=== PATIENT | female | born 1935 | race Caucasian/White ===

== ENCOUNTER → 2016-11-12 | Outpatient (CLI) | payer OTHER ==
[2016-11-12 16:45] LABS: URINE APPEARANCE CLEAR (CLEAR); URINE BILIRUBIN NEG (NEG); URINE COLOR YELLOW; URINE NITRITE POS (NEG); URINE SPECIFIC GRAVITY 1.009 (1.000-1.030); UROBILINOGEN NEG (NEG)
[2016-11-12 16:48] LABS: MANUAL MICROSCOPIC REQUIRED? NO; REVIEW REQ? YES
== END | disposition home or self-care (01) ==
LOC: C.LABSPEC 13:30
PROVIDERS: ATTEND Internal Medicine
DX: N39.0 Urinary tract infection, site not specified (principal)

== ENCOUNTER → 2016-12-19 | Outpatient (CLI) | payer OTHER | END | disposition home or self-care (01) | LOC: C.LABWYN 06:00 | PROVIDERS: ATTEND Internal Medicine | DX: E03.9 Hypothyroidism, unspecified (principal) ==

== ENCOUNTER → 2017-01-10 | Outpatient (CLI) | payer OTHER ==
--- NOTE | 2017-01-10 14:07 | DIAGNOSTIC IMAGING REPORT ---
R FOREARM 2 VIEWS ROUTINE CLINICAL HISTORY: Right forearm pain. Trauma. COMPARISON: None. DISCUSSION: The bones are osteopenic. No acute fractures are visualized. IMPRESSION: No acute fractures identified. Electronically signed by: Toni Tim M.D. 01/10/2017 2:06 PM Dictated Date/Time: 01/10/2017 2:05 PM
--- NOTE | 2017-01-10 14:09 | DIAGNOSTIC IMAGING REPORT ---
R HAND MIN 3 VIEWS ROUTINE CLINICAL HISTORY: RIGHT HAND PAIN TRAUMA COMPARISON: None. DISCUSSION: The bones are osteopenic. No acute fractures are visualized. There are no erosive changes. There are minor degenerative changes. IMPRESSION: No acute fractures or dislocations identified. Electronically signed by: Toni Tim M.D. 01/10/2017 2:08 PM Dictated Date/Time: 01/10/2017 2:06 PM
[2017-01-10 15:04] LABS: BASO % 0.3 %; BASO ABS # 0.02 K/uL (0-0.2); COMPLETE YES; EOS % 2.6 %; HEMATOCRIT 39.2 % (37-47); IG% 0.3 %; LYMPH % 28.4 %; LYMPH ABS # 2.17 K/uL (1.2-3.4); MEAN CELL VOLUME 91.6 fL (80-100); MEAN CORPUSCULAR HEMOGLOBIN 30.4 pg (25-34); MEAN CORPUSCULAR HGB CONC 33.2 g/dl (32-36); MEAN PLATELET VOLUME 10.2 fL (7.4-10.4); MONO % 7.6 %; NEUT % 60.8 %; PLATELET COUNT 293 K/uL (130-400); RED BLOOD COUNT 4.28 M/uL (4.2-5.4); WHITE BLOOD COUNT 7.64 K/uL (4.8-10.8)
[2017-01-10 15:17] LABS: BLOOD UREA NITROGEN 17 mg/dl (7-18); BUN/CREATININE RATIO 17.9 (10-20); CALCIUM 10.3 mg/dl (8.5-10.1); CARBON DIOXIDE 26 mmol/L (21-32); CHLORIDE 109 mmol/L (98-107); CREATININE 0.95 mg/dl (0.60-1.20); GLUCOSE 103 mg/dl (70-99); POTASSIUM 3.9 mmol/L (3.5-5.1); SODIUM 143 mmol/L (136-145)
== END | disposition home or self-care (01) ==
LOC: C.RAD 13:23
PROVIDERS: ATTEND Internal Medicine
DX: M79.641 Pain in right hand (principal); R42 Dizziness and giddiness; R53.1 Weakness

== ENCOUNTER → 2017-01-14 | Outpatient (CLI) | payer OTHER ==
[2017-01-14 12:27] LABS: HEMATOCRIT 36.1 % (37-47); MEAN CELL VOLUME 90.9 fL (80-100); MEAN CORPUSCULAR HEMOGLOBIN 30.2 pg (25-34); MEAN CORPUSCULAR HGB CONC 33.2 g/dl (32-36); MEAN PLATELET VOLUME 10.1 fL (7.4-10.4); PLATELET COUNT 262 K/uL (130-400); RED BLOOD COUNT 3.97 M/uL (4.2-5.4); WHITE BLOOD COUNT 6.15 K/uL (4.8-10.8)
[2017-01-14 13:16] LABS: BLOOD UREA NITROGEN 15 mg/dl (7-18); BUN/CREATININE RATIO 21.6 (10-20); CALCIUM 9.4 mg/dl (8.5-10.1); CARBON DIOXIDE 27 mmol/L (21-32); CHLORIDE 109 mmol/L (98-107); GLUCOSE 79 mg/dl (70-99); SODIUM 141 mmol/L (136-145)
== END | disposition home or self-care (01) ==
LOC: C.LABWYN 17:17
PROVIDERS: ATTEND Internal Medicine
DX: R53.1 Weakness (principal); R42 Dizziness and giddiness

== ENCOUNTER → 2017-01-16 | Outpatient (CLI) | payer OTHER ==
--- NOTE | 2017-01-16 14:37 | DIAGNOSTIC IMAGING REPORT ---
CT SCAN OF THE BRAIN WITHOUT IV CONTRAST CLINICAL HISTORY: Fall with head injury. COMPARISON STUDY: No priors. TECHNIQUE: Unenhanced axial CT scan of the brain is performed from the vertex to the skull base. CT DOSE: 932.98 mGy.cm FINDINGS: Brain parenchyma: There are age-related involutional changes noting mild subcortical and periventricular microangiopathic change. There is no hemorrhage, mass effect, or evidence of acute territorial ischemia by CT criteria. Hsu-white matter is preserved. No extra-axial fluid collection is seen. Ventricles, sulci, cisterns: Prominent secondary to involutional change. Intracranial vasculature: There is atherosclerotic calcification of the cavernous carotid arteries. Calvarium: Skeletal structures are osteopenic. There is no depressed calvarial fracture. Soft tissues: There is minimal right frontal scalp contusion. Sinuses and mastoids: The visualized paranasal sinuses are clear. The mastoid air cells are well pneumatized. Orbits: The bony orbits are grossly intact. There are bilateral ocular lens implants. IMPRESSION: There is no hemorrhage, mass effect, or evidence of acute territorial ischemia by CT criteria. Electronically signed by: Holden Dao M.D. 01/16/2017 2:36 PM Dictated Date/Time: 01/16/2017 2:33 PM
--- NOTE | 2017-01-16 14:47 | DIAGNOSTIC IMAGING REPORT ---
CT SCAN OF THE CERVICAL SPINE CLINICAL HISTORY: Fall. COMPARISON STUDY: No priors. TECHNIQUE: CT scan of the cervical spine is performed from the skull base to the upper thoracic spine. Images are reviewed in the axial, sagittal, and coronal planes. IV contrast was not administered for this examination. A dose lowering technique was utilized adhering to the principles of ALARA. FINDINGS: Skeletal structures: The skeletal structures are osteopenic. There is no evidence of fracture or subluxation involving the cervical spine. Vertebral body height and alignment are maintained. The odontoid process and lateral masses are intact. The atlantoaxial articulation is preserved noting productive degenerative change. The spinous processes appear intact. Anterior osteophytes are seen in the mid to lower cervical region. There is bony fusion of the right posterior elements of C3 and C4. There is mild to moderate multilevel cervical spondylosis. Uncovertebral and facet arthropathy contribute sterile foraminal narrowing at several levels. Intervertebral discs: There is moderate disc space narrowing seen at C5-C6 and C6-C7. The remaining disc spaces appear maintained. Central canal: Posterior disc osteophyte complexes at C5-C6 and C6-C7 likely contribute to acquired compromise of the central canal. Soft tissues: The prevertebral and paraspinous soft tissues are within normal limits. Calvarium: The visualized calvarium at the skull base appears intact. Brain parenchyma: Partially visualized brain parenchyma the skull base is within normal limits. Sinuses and mastoids: The visualized paranasal sinuses are clear. The mastoid air cells are well pneumatized. Lung apices: Apical scarring is observed. Partially imaged upper lobe lung parenchyma is otherwise clear as visualized. IMPRESSION: 1. There is no evidence of fracture or subluxation involving the cervical spine. 2. Osteopenia and multilevel spondylosis as above. Electronically signed by: Holden Dao M.D. 01/16/2017 2:46 PM Dictated Date/Time: 01/16/2017 2:36 PM
== END | disposition home or self-care (01) ==
LOC: C.CTS 14:13
PROVIDERS: ATTEND Internal Medicine
DX: S09.90XA Unspecified injury of head, initial encounter (principal); W19.XXXA Unspecified fall, initial encounter; M47.812 Spondylosis without myelopathy or radiculopathy, cervical region; M85.88 Other specified disorders of bone density and structure, other site

== ENCOUNTER → 2017-01-18 | Outpatient (CLI) | payer OTHER ==
[2017-01-18 13:36] LABS: MANUAL MICROSCOPIC REQUIRED? YES; URINE APPEARANCE CLOUDY (CLEAR); URINE BILIRUBIN NEG (NEG); URINE COLOR YELLOW; URINE NITRITE NEG (NEG); URINE PH 6.5 (4.5-7.5); UROBILINOGEN NEG (NEG)
[2017-01-18 13:37] LABS: REVIEW REQ? NO
[2017-01-18 13:52] LABS: URINE BACTERIA 1+ (NEG); URINE RBC 0-4 /hpf (0-4); URINE WBC >30 /hpf (0-5)
== END | disposition home or self-care (01) ==
LOC: C.LABWYN 15:40
PROVIDERS: ATTEND Nurse Practitioner
DX: N39.0 Urinary tract infection, site not specified (principal)

== ENCOUNTER → 2017-06-10 | Outpatient (CLI) | payer OTHER ==
[2017-06-10 12:22] LABS: HEMATOCRIT 35.4 % (37-47); HEMOGLOBIN 11.8 g/dL (12.0-16.0); MEAN CELL VOLUME 91.5 fL (80-100); MEAN CORPUSCULAR HEMOGLOBIN 30.5 pg (25-34); MEAN CORPUSCULAR HGB CONC 33.3 g/dl (32-36); MEAN PLATELET VOLUME 10.1 fL (7.4-10.4); PLATELET COUNT 247 K/uL (130-400); RED CELL DISTRIBUTION WIDTH CV 12.9 % (11.5-14.5); RED CELL DISTRIBUTION WIDTH SD 43.1 fL (36.4-46.3); WHITE BLOOD COUNT 5.62 K/uL (4.8-10.8)
[2017-06-10 13:04] LABS: BLOOD UREA NITROGEN 13 mg/dl (7-18); CALCIUM 9.4 mg/dl (8.5-10.1); CARBON DIOXIDE 28 mmol/L (21-32); CHOLESTEROL 135 mg/dl (0-200); CREATININE 0.75 mg/dl (0.60-1.20); GLUCOSE 80 mg/dl (70-99); SODIUM 141 mmol/L (136-145)
[2017-06-10 13:07] LABS: LDL CHOLESTEROL CALCULATED 74 mg/dl
== END | disposition home or self-care (01) ==
LOC: C.LABWYN 12:14
PROVIDERS: ATTEND Nurse Practitioner Adult Health
DX: E78.5 Hyperlipidemia, unspecified (principal); I10 Essential (primary) hypertension

== ENCOUNTER 2017-06-23 03:51 | Emergency (ER) | payer OTHER ==
[~2017-06-23] VITALS: Ht 154.9 cm; Wt 70.1 kg
[2017-06-23 03:52] VITALS: TEMP 36.6; Ht 154.9 cm; Wt 70.1 kg
--- NOTE | 2017-06-23 04:37 | EMERGENCY ROOM VISIT NOTE ---
History First contact with patient: 03:56 Chief Complaint: FALL Stated Complaint: FALL History of Present Illness The patient is a 82 year old female who presents to the Emergency Room with complaints of a fall which occurred 1 hour prior to arrival. History was obtained from both the patient and family members. The patient states that she had a fall this evening. She states that she had a bowel movement and was unable to make it all the way to the bathroom. She was trying to change her underwear and states that when she was putting on her underwear, she lost balance putting her left leg through them and fell. She hit the left side of her face. She rates her discomfort a 2/10. The patient states that she falls very frequently. She states that she is frequently very dizzy and sometimes has to hold onto queen when she walks. She describes her dizziness as a lack of balance. She denies feelings of the room spinning or lightheadedness. Her symptoms seem to worsen when she is "extra tired." The patient reports a history of balance problems and states that she thought that she would be receiving therapy for her balance [facility]. She has been told that her problems are related to her anxiety. Her family notes that her balance issues have been an ongoing problem for some time. The patient reports some intermittent pain across her ribs since 1 of her recent falls. She denies shortness of breath, abdominal pain, neck pain or any other injuries. She does not take anticoagulants. Review of Systems A complete 10 point review of systems was reviewed with the patient with pertinent positives and negatives as per history of present illness. All else were negative. Past Medical/Surgical History Medical Problems: (1) Anxiety (2) CAD (coronary artery disease) (3) Dementia (4) Diverticulosis (5) GERD (gastroesophageal reflux disease) (6) HTN (hypertension) Social History Smoking Status: Never Smoker Marital Status: Housing Status: assisted living ([facility]) Occupation Status: retired Current/Historical Medications Scheduled Aspirin (Aspirin Ec), 81 MG PO DAILY Atorvastatin (Lipitor), 20 MG PO QPM Cephalexin Monohydrate (Keflex), 500 MG PO TID Escitalopram (Lexapro), 10 MG PO QAM Lisinopril (Zestril), 10 MG PO QAM Lutein (Lutein), 2 CAP PO DAILY Metoprolol Tartrate (Lopressor) (Lopressor), 25 MG PO Q12 Polyethylene Glycol-Propylene (Systane), 1 DROPS OPB BID Scheduled PRN Acetaminophen (Tylenol), 500 MG PO Q4 PRN for Pain or Fever Diphenhydramine Hcl (Banophen), 25 MG PO HS PRN for Itching Ketotifen Fumarate (Ophth) (Thera Tears Allergy Eye I), 2 DROPS OPB BID PRN for DRYNESS Nitroglycerin (Nitrostat), 0.4 MG UT UD PRN for Chest Pain Saline (Saline Mist), 2 SPRAYS KAEL HS PRN for DRYNESS Physical Exam Vital Signs Date Time Temp Pulse Resp B/P (MAP) Pulse Ox O2 Delivery O2 Flow Rate FiO2 06/23/17 06:12 57 18 166/92 99 06/23/17 05:15 55 18 172/84 98 Room Air 06/23/17 05:02 56 16 164/77 99 Room Air 59 172/82 57 145/68 06/23/17 03:54 58 06/23/17 03:52 36.6 59 16 177/103 99 Room Air Physical Exam VITALS: Vitals are noted on the nurse's note and reviewed by myself. Vital signs stable. GENERAL: This is an 82-year-old female, in no acute distress, resting comfortably in bed, well-developed well-nourished. SKIN: There are superficial abrasions to the left cheek. There is ecchymosis and edema to the left forehead. No lacerations present. HEAD: Frontal contusion/hematoma as described above. Otherwise normocephalic atraumatic. EARS: External auditory canals clear, tympanic membranes pearly cabrera without erythema or effusion bilaterally. No hemotympanum. EYES: Pupils equal round and reactive to light and accommodation. Extraocular movements intact. MOUTH: Mucous membranes moist. NECK: Supple without nuchal rigidity. Cervical spine is nontender. HEART: Regular rate and rhythm without murmurs gallops or rubs. LUNGS: Clear to auscultation bilaterally without wheezes, rales or rhonchi. ABDOMEN: Soft, nontender to palpation. MUSCULOSKELETAL: No significant tenderness to palpation of the extremities or thorax. NEURO: Patient is alert and answers questions appropriately. She is pleasant and cooperative. Medical Decision & Procedures ER Provider Diagnostic Interpretation: CT HEAD: Large extracranial soft tissue hematoma and laceration. No acute skull fractures. No acute intracranial hemorrhage. CT FACIAL: Facial and periorbital soft tissue hematoma. No orbital hematoma or fractures or emphysema. Intact globes. Evidence of prior cataract surgery. The temporomandibular joints are well situated. Intact pterygoid plates. No mandible fractures. Streak artifact from dental amalgam. CT C SPINE: No acute fractures or prevertebral soft tissue swelling. Multilevel degenerative disease with central canal and neural foraminal stenosis. Radiologist: Lili Marquez M.D. CHEST W/ RIB DETAIL: No obvious fractures identified. No acute cardiopulmonary abnormalities. Per my interpretation Laboratory Results 06/23/17 04:00 Red Blood Count 4.31, Mean Corpuscular Volume 91.0, Mean Corpuscular Hemoglobin 30.9, Mean Corpuscular Hemoglobin Concent 33.9, Mean Platelet Volume 9.6, Neutrophils (%) (Auto) 70.8, Lymphocytes (%) (Auto) 19.2, Monocytes (%) (Auto) 6.8, Eosinophils (%) (Auto) 2.6, Basophils (%) (Auto) 0.3, Neutrophils # (Auto) 5.08, Lymphocytes # (Auto) 1.38, Monocytes # (Auto) 0.49, Eosinophils # (Auto) 0.19, Basophils # (Auto) 0.02 06/23/17 04:00 Test 06/23/17 04:00 06/23/17 04:25 White Blood Count 7.18 K/uL (4.8-10.8) Red Blood Count 4.31 M/uL (4.2-5.4) Hemoglobin 13.3 g/dL (12.0-16.0) Hematocrit 39.2 % (37-47) Mean Corpuscular Volume 91.0 fL (80-100) Mean Corpuscular Hemoglobin 30.9 pg (25-34) Mean Corpuscular Hemoglobin Concent 33.9 g/dl (32-36) Platelet Count 260 K/uL (130-400) Mean Platelet Volume 9.6 fL (7.4-10.4) Neutrophils (%) (Auto) 70.8 % Lymphocytes (%) (Auto) 19.2 % Monocytes (%) (Auto) 6.8 % Eosinophils (%) (Auto) 2.6 % Basophils (%) (Auto) 0.3 % Neutrophils # (Auto) 5.08 K/uL (1.4-6.5) Lymphocytes # (Auto) 1.38 K/uL (1.2-3.4) Monocytes # (Auto) 0.49 K/uL (0.11-0.59) Eosinophils # (Auto) 0.19 K/uL (0-0.5) Basophils # (Auto) 0.02 K/uL (0-0.2) RDW Standard Deviation 42.8 fL (36.4-46.3) RDW Coefficient of Variation 12.9 % (11.5-14.5) Immature Granulocyte % (Auto) 0.3 % Immature Granulocyte # (Auto) 0.02 K/uL (0.00-0.02) Anion Gap 5.0 mmol/L (3-11) Est Creatinine Clear Calc Drug Dose 46.2 ml/min Estimated GFR () 75.0 Estimated GFR (Non- 64.7 BUN/Creatinine Ratio 20.4 (10-20) Calcium Level 10.2 mg/dl (8.5-10.1) Total Bilirubin 0.4 mg/dl (0.2-1) Aspartate Amino Transf (AST/SGOT) 15 U/L (15-37) Alanine Aminotransferase (ALT/SGPT) 21 U/L (12-78) Alkaline Phosphatase 155 U/L (45-117) Total Protein 7.3 gm/dl (6.4-8.2) Albumin 3.5 gm/dl (3.4-5.0) Globulin 3.8 gm/dl (2.5-4.0) Albumin/Globulin Ratio 0.9 (0.9-2) Urine Color YELLOW Urine Appearance CLOUDY (CLEAR) Urine pH 6.0 (4.5-7.5) Urine Specific Kin[place] 1.010 (1.000-1.030) Urine Protein NEG (NEG) Urine Glucose (UA) NEG (NEG) Urine Ketones NEG (NEG) Urine Occult Blood NEG (NEG) Urine Nitrite POS (NEG) Urine Bilirubin NEG (NEG) Urine Urobilinogen NEG (NEG) Urine Leukocyte Esterase MODERATE (NEG) Urine WBC (Auto) >30 /hpf (0-5) Urine RBC (Auto) 0-4 /hpf (0-4) Urine Hyaline Casts (Auto) 0 /lpf (0-5) Urine Epithelial Cells (Auto) 0-5 /lpf (0-5) Urine Bacteria (Auto) 2+ (NEG) Medications Administered Medications (Trade) Dose Ordered Sig/Génesis Route Start Time Stop Time Status Last Admin Dose Admin Ceftriaxone Sodium (Rocephin Inj) 1 gm NOW STAT IV 06/23/17 05:05 06/23/17 05:06 DC 06/23/17 05:13 1 GM ECG Per My Interpretation Indication: other (falls) Rate (beats per minute): 59 Rhythm: sinus bradycardia Findings: no acute ischemic change, no ectopy Comparison ECG Date: no prior available ED Course The patient was evaluated as above. Labs were drawn and IV access was obtained. Urine suggestive of a UTI. Patient was medicated with [address] of the head, facial bones and C spine was performed and read by radiology as above. Patient was reevaluated and findings were discussed. Discharge instructions were reviewed with the patient. The patient verbalized understanding of my assessment and treatment plan and was discharged home in good condition. Medical Decision Differential diagnosis includes intracranial hemorrhage, scalp hematoma, skull fracture, C-spine fracture, subluxation, dehydration, cardiac disease, electrolyte abnormality, anemia, UTI, among others. The patient is an 82-year-old female who presents today complaining of a fall and head injury. Patient reports frequent falls recently. I spoke with the patient's daughter, who states that she has some dementia and has problems with her balance at baseline. CT of the head, facial bones and C-spine were negative for acute abnormalities. Labs revealed no leukocytosis, anemia or concerning electrolyte abnormalities. Urinalysis was suggestive of infection, with nitrites, 2+ bacteria, leukocyte esterase and white blood cells. Patient has one previous urine culture which showed pansensitive E. coli and E faecalis. She was given Rocephin and will be placed on Keflex. She will need follow-up with her primary care provider within 1 week for recheck. All findings were discussed with the patient and family, who verbalized their understanding. The patient was independently evaluated by Dr. Daly, ED attending physician, who agreed with my assessment and treatment plan. Based on the patient's presentation and work up, I feel the patient is stable for outpatient treatment. The patient was educated to return to the emergency department for any worsening of their current condition or new/concerning symptoms. She will follow up with her PCP. Medication Reconcilliation Current Medication List: was personally reviewed by me Blood Pressure Screening Patient's blood pressure: Elevated blood pressure Blood pressure disposition: Elevated BP felt to be situational, Referred to PCP Impression Primary Impression: Urinary tract infection Additional Impressions: Closed head injury Falls Departure Information Dispostion Admitted as an inpatient Condition GOOD Prescriptions Cephalexin Monohydrate (Keflex) 500 Mg Cap 500 MG PO TID for 10 Days, #30 CAP Prov: Dayana Rajan ., DEEP 06/23/17 Referrals [facility] ([facility] Patient Instructions My [facility] Additional Instructions You were prescribed Keflex to be taken 3 times daily for 10 days. This is an antibiotic. All antibiotics have the potential to cause diarrhea. Stop this medication and contact a medical provider if you were to develop any significant adverse side effects including: wheezing, shortness of breath, passing out, vomiting, or a diffuse rash. Always take antibiotics as directed and COMPLETE the ENTIRE course regardless of the improvement of your symptoms. Follow-up with the primary care provider in 7-10 days. Return to the ED with fevers, abdominal pain, back pain or vomiting. Problem Qualifiers Primary Impression: Urinary tract infection Urinary tract infection type: acute cystitis Hematuria presence: without hematuria Qualified Codes: N30.00 - Acute cystitis without hematuria Additional Impressions: Closed head injury Encounter type: initial encounter Qualified Codes: S09.90XA - Unspecified injury of head, initial encounter Falls Encounter type: initial encounter Qualified Codes: W19.XXXA - Unspecified fall, initial encounter
[2017-06-23] MEDS ORDERED: ATOR-22 PO (04:38)
[2017-06-23] MEDS ORDERED: ASPI81TA28 PO (04:38)
[2017-06-23 04:39] LABS: BASO % 0.3 %; BASO ABS # 0.02 K/uL (0-0.2); EOS % 2.6 %; EOS ABS # 0.19 K/uL (0-0.5); HEMATOCRIT 39.2 % (37-47); HEMOGLOBIN 13.3 g/dL (12.0-16.0); IG# 0.02 K/uL (0.00-0.02); LYMPH % 19.2 %; LYMPH ABS # 1.38 K/uL (1.2-3.4); MEAN CORPUSCULAR HEMOGLOBIN 30.9 pg (25-34); MEAN CORPUSCULAR HGB CONC 33.9 g/dl (32-36); MEAN PLATELET VOLUME 9.6 fL (7.4-10.4); MONO % 6.8 %; MONO ABS # 0.49 K/uL (0.11-0.59); NEUT % 70.8 %; NEUT ABS # 5.08 K/uL (1.4-6.5); PLATELET COUNT 260 K/uL (130-400); RED CELL DISTRIBUTION WIDTH CV 12.9 % (11.5-14.5); RED CELL DISTRIBUTION WIDTH SD 42.8 fL (36.4-46.3); WHITE BLOOD COUNT 7.18 K/uL (4.8-10.8)
[2017-06-23] MEDS ORDERED: LISI-461 PO (04:40)
[2017-06-23] MEDS ORDERED: LUTE6CAP PO (04:40)
[2017-06-23] MEDS ORDERED: ESCI10TA17 PO (04:40)
[2017-06-23] MEDS ORDERED: ACET-1256 PO (04:41)
[2017-06-23] MEDS ORDERED: DIPH25CA45 PO (04:42)
[2017-06-23] MEDS ORDERED: METO25TA56 PO (04:42)
[2017-06-23] MEDS ORDERED: NTRGSL/4 UT (04:42)
[2017-06-23] MEDS ORDERED: POLYSOL4 OPB (04:43)
[2017-06-23] MEDS ORDERED: KETO1DRO13 OPB (04:44)
[2017-06-23] MEDS ORDERED: SALI0.6515 NAE (04:44)
--- NOTE | 2017-06-23 04:46 | EMERGENCY ROOM VISIT NOTE ---
ED Visit Note First contact with patient: 03:56 I saw this patient in conjunction with Dayana Rajan PA-C. I agree with her decision making and treatment plan.
[2017-06-23 05:00] LABS: ALBUMIN 3.5 gm/dl (3.4-5.0); CALCIUM 10.2 mg/dl (8.5-10.1); CREATININE 0.84 mg/dl (0.60-1.20); POTASSIUM 3.8 mmol/L (3.5-5.1)
[2017-06-23 05:02] LABS: TOTAL PROTEIN 7.3 gm/dl (6.4-8.2)
[2017-06-23] MEDS ORDERED: CEFTRIAXONE SOD INJ 1 GM ADDVIAL IV STA (05:05)
[2017-06-23] MEDS ORDERED: CEPH500C PO (05:58)
[2017-06-23 06:12] VITALS: BP 166/92; PULSE 57; O2SAT 99
--- NOTE | 2017-06-23 06:44 | DIAGNOSTIC IMAGING REPORT ---
CT OF THE CERVICAL SPINE WITHOUT CONTRAST CLINICAL HISTORY: fall, head injury COMPARISON STUDY: Cervical spine CT January 16, 2017. TECHNIQUE: Helical axial images of the cervical spine were obtained without IV contrast. Sagittal and coronal reconstructions were viewed. A dose lowering technique was utilized adhering to the principles of ALARA. FINDINGS: Alignment of the cervical spine is anatomic. There is no acute fracture. Craniocervical junction is intact. There is no prevertebral edema. There is biapical scarring. Moderate multilevel degenerative disc disease and facet arthrosis is present. IMPRESSION: No acute cervical spine fracture or subluxation. Electronically signed by: Landen Licea M.D. 06/23/2017 6:43 AM Dictated Date/Time: 06/23/2017 6:40 AM
--- NOTE | 2017-06-23 06:59 | DIAGNOSTIC IMAGING REPORT ---
FACIAL BONES-MXILLOFAC WITHOUT CT DOSE: HISTORY: Trauma. Pain. fall, head injury, left facial injury TECHNIQUE: Multiaxial CT images of the maxillofacial region were performed and reformatted in the coronal plane without the use of contrast. A dose lowering technique was utilized adhering to the principles of ALARA. COMPARISON: None. FINDINGS: The visualized cervical spine, skull base, pterygoid plates, nasal bones, lamina papyracea, orbital floors, mandible, and zygomatic arches are intact. No fractures. The orbits are unremarkable. Moderate extracranial soft tissue edema anterior to the left frontal and left periorbital region. IMPRESSION: No fractures within the maxillofacial region. Soft tissue edema. The above report was generated using voice recognition software. It may contain grammatical, syntax or spelling errors. Electronically signed by: Quinn Busch M.D. 06/23/2017 6:58 AM Dictated Date/Time: 06/23/2017 6:54 AM
--- NOTE | 2017-06-23 07:02 | DIAGNOSTIC IMAGING REPORT ---
CT SCAN OF THE BRAIN WITHOUT IV CONTRAST CLINICAL HISTORY: Fall with head injury. COMPARISON STUDY: CT of the brain dated 01/16/2017. TECHNIQUE: Unenhanced axial CT scan of the brain is performed from the vertex to the skull base. A dose lowering technique was utilized adhering to the principles of ALARA. FINDINGS: Brain parenchyma: There are age-related involutional changes noting mild subcortical and periventricular microangiopathic change. There is no hemorrhage, mass effect, or evidence of acute territorial ischemia by CT criteria. Hsu-white matter is preserved. No extra-axial fluid collection is seen. Ventricles, sulci, cisterns: Prominent secondary to involutional change. Intracranial vasculature: There is atherosclerotic calcification of the cavernous carotid and vertebral arteries. Calvarium: The skeletal structures are osteopenic. There is no depressed calvarial fracture. Soft tissues: There is a frontal scalp hematoma. Sinuses and mastoids: The visualized paranasal sinuses are clear. The mastoid air cells are well pneumatized. Orbits: The bony orbits are grossly intact. There are bilateral ocular lens implants. IMPRESSION: There is no hemorrhage, mass effect, or evidence of acute territorial ischemia by CT criteria. Electronically signed by: Holden Dao M.D. 06/23/2017 7:01 AM Dictated Date/Time: 06/23/2017 6:59 AM
--- NOTE | 2017-06-23 07:03 | DIAGNOSTIC IMAGING REPORT ---
RIBS BILATERAL WITH PA CHEST CLINICAL HISTORY: b/l rib pain, falls trauma. Pain. COMPARISON STUDY: None FINDINGS: Negative ribs bilaterally. The lungs are clear. Mild cardiomegaly. Diaphragms are smooth. No significant pneumothorax. IMPRESSION: No acute process. The above report was generated using voice recognition software. It may contain grammatical, syntax or spelling errors. Electronically signed by: Quinn Busch M.D. 06/23/2017 7:02 AM Dictated Date/Time: 06/23/2017 7:00 AM
[2017-06-24] MEDS ORDERED: LSN5 PO (10:21)
--- NOTE | 2017-06-25 10:51 | Pharmacy Progress Note ---
ED Pharmacist Culture FollowUp Date of Service: Jun 25, 2017. Patient was sent home with a prescription for Keflex 500mg TID x 10 days, which should cover the e coli and alpha-strep (not enterococcus) growing from the patient's urine culture.
== END 2017-06-23 06:13 | disposition home or self-care (01) ==
LOC: EDBD 03:51 → C.EDB 03:54
DX: N30.00 Acute cystitis without hematuria (principal); S09.90XA Unspecified injury of head, initial encounter; W18.39XA Other fall on same level, initial encounter; R29.6 Repeated falls; F41.9 Anxiety disorder, unspecified; I25.10 Atherosclerotic heart disease of native coronary artery without angina pectoris; F03.90 Unspecified dementia, unspecified severity, without behavioral disturbance, psychotic disturbance, mood disturbance, and anxiety; K57.90 Diverticulosis of intestine, part unspecified, without perforation or abscess without bleeding; K21.9 Gastro-esophageal reflux disease without esophagitis; I10 Essential (primary) hypertension; Z79.82 Long term (current) use of aspirin

== ENCOUNTER 2017-06-24 09:01 | Inpatient (IN) | payer OTHER ==
[~2017-06-24] VITALS: Ht 167.6 cm; Wt 59.7 kg
[~2017-06-24 09:01] MED LIST: ACET-1256 PO; ASPI81TA28 PO; ATOR-22 PO; CEPH500C PO; DIPH25CA45 PO; ESCI10TA17 PO; KETO1DRO13 OPB; LISI-461 PO; LUTE6CAP PO; METO25TA56 PO; NTRGSL/4 UT; POLYSOL4 OPB; SALI0.6515 NAE
[2017-06-24] MEDS ORDERED: SODIUM CHLORIDE 0.9% 1000ML 1,000 ML IV STA (09:16)
[2017-06-24] MEDS ORDERED: ATROPINE SULFATE 0.1 MG/ML 5ML SYR IV STA ×2 (09:19→09:49)
[2017-06-24] MEDS ORDERED: OPTIRAY 320 IV PRN (09:30)
[2017-06-24 09:34] LABS: BASO % 0.3 %; BASO ABS # 0.02 K/uL (0-0.2); EOS % 3.3 %; EOS ABS # 0.19 K/uL (0-0.5); HEMATOCRIT 38.8 % (37-47); HEMOGLOBIN 13.2 g/dL (12.0-16.0); IG# 0.01 K/uL (0.00-0.02); LYMPH % 30.5 %; LYMPH ABS # 1.78 K/uL (1.2-3.4); MEAN CELL VOLUME 90.7 fL (80-100); MEAN CORPUSCULAR HEMOGLOBIN 30.8 pg (25-34); MEAN PLATELET VOLUME 9.2 fL (7.4-10.4); MONO % 7.7 %; MONO ABS # 0.45 K/uL (0.11-0.59); NEUT ABS # 3.38 K/uL (1.4-6.5); PLATELET COUNT 253 K/uL (130-400); RED CELL DISTRIBUTION WIDTH SD 42.7 fL (36.4-46.3); WHITE BLOOD COUNT 5.83 K/uL (4.8-10.8)
[2017-06-24 09:44] LABS: ISTAT CREATININE 0.8 mg/dl (0.6-1.3); ISTAT IONIZED CALCIUM 1.26 mmol/l (1.12-1.32); ISTAT POTASSIUM 3.9 mEq/L (3.3-5.0)
[2017-06-24 09:53] LABS: ALBUMIN 3.5 gm/dl (3.4-5.0); ALT/SGPT 20 U/L (12-78); AST/SGOT 17 U/L (15-37); BLOOD UREA NITROGEN 16 mg/dl (7-18); CALCIUM 9.7 mg/dl (8.5-10.1); CARBON DIOXIDE 27 mmol/L (21-32); POTASSIUM 3.8 mmol/L (3.5-5.1); SODIUM 140 mmol/L (136-145)
[2017-06-24 09:59] LABS: CREATININE 0.79 mg/dl (0.60-1.20); GLUCOSE 91 mg/dl (70-99)
[2017-06-24 10:03] LABS: ALKALINE PHOSPHATASE 132 U/L (45-117); TOTAL PROTEIN 7.3 gm/dl (6.4-8.2)
[2017-06-24] MEDS ORDERED: LSN5 PO (10:21)
[2017-06-24 10:30] LABS: CKMB 1.9 ng/ml (0.5-3.6)
--- NOTE | 2017-06-24 11:00 | DIAGNOSTIC IMAGING REPORT ---
CT SCAN OF THE BRAIN WITHOUT IV CONTRAST CLINICAL HISTORY: Change in mental status. Recent fall. COMPARISON STUDY: CT of the brain dated 06/23/2017. TECHNIQUE: Unenhanced axial CT scan of the brain is performed from the vertex to the skull base. A dose lowering technique was utilized adhering to the principles of ALARA. The skull base was scanned twice due to motion artifact. FINDINGS: Brain parenchyma: There are age-related involutional changes noting mild subcortical and periventricular microangiopathic change. There is no hemorrhage, mass effect, or evidence of acute territorial ischemia by CT criteria. Hsu-white matter is preserved. No extra-axial fluid collection is seen. Ventricles, sulci, cisterns: Prominent secondary to involutional change. Intracranial vasculature: There is atherosclerotic calcification of the cavernous carotid and vertebral arteries. Calvarium: The skeletal structures are osteopenic. There is no depressed calvarial fracture. Soft tissues: There is a frontal scalp hematoma. Sinuses and mastoids: The visualized paranasal sinuses are clear. The mastoid air cells are well pneumatized. Orbits: The bony orbits are grossly intact. There are bilateral ocular lens implants. IMPRESSION: There is no hemorrhage, mass effect, or evidence of acute territorial ischemia by CT criteria. No significant change from yesterday. Electronically signed by: Holden Dao M.D. 06/24/2017 10:59 AM Dictated Date/Time: 06/24/2017 10:57 AM
--- NOTE | 2017-06-24 11:09 | DIAGNOSTIC IMAGING REPORT ---
(CHEST) THORAX WITH CT DOSE: 325.31 mGycm HISTORY: Trauma Pt c/o b/l chest pain s/p fall TECHNIQUE: Multiaxial CT images of the chest were performed following the intravenous administration of contrast. A dose lowering technique was utilized adhering to the principles of ALARA. COMPARISON: None. FINDINGS: The lungs are clear. The mediastinal vascular structures are within normal limits. No mediastinal or hilar lymphadenopathy. No pleural effusion or pneumothorax. Limited views of the upper abdomen demonstrate a normal liver and spleen. Minimal deep and basilar atelectasis. No significant mediastinal or hilar adenopathy. Small left posterior fat-containing Bochdalek hernia. Minimal apical fibrotic change. IMPRESSION: No acute process. The above report was generated using voice recognition software. It may contain grammatical, syntax or spelling errors. Electronically signed by: Quinn Busch M.D. 06/24/2017 11:08 AM Dictated Date/Time: 06/24/2017 11:03 AM
[2017-06-24] MEDS ORDERED: CEFTRIAXONE SOD INJ 1 GM ADDVIAL IV STA (11:15)
--- NOTE | 2017-06-24 12:43 | EMERGENCY ROOM VISIT NOTE ---
History Report prepared by Genet: Leon Bosch Under the Supervision of: Dr. Michael Graff M.D. First contact with patient: 09:12 Chief Complaint: FALL Stated Complaint: FALL History of Present Illness The patient is a 82 year old female who presents to the Emergency Room by EMS with complaints of constant altered mental status beginning today. The patient is a resident at [facility]. She states that she fell yesterday after tripping over a book and hit her face/head. She was evaluated in the ED for this and was discharged home afterwards. The patient presents to the ED today after staff noted the patient was unable to locate her room. She also complains of lower chest pain which she attributes to her fall. She denies any abdominal pain. The patient states "I think my bed just raised me up to the ceiling". HPI limited secondary to altered mental status. Source of History: patient History Limited By: AMS Onset: Yesterday Quality: other (altered mental status) Timing: constant Associated Symptoms: + chest pain (lower), No abdominal pain Review of Systems ROS limited secondary to altered mental status. Past Medical & Surgical Medical Problems: (1) Anxiety (2) Bradycardia (3) CAD (coronary artery disease) (4) Dementia (5) Diverticulosis (6) GERD (gastroesophageal reflux disease) (7) HTN (hypertension) Family History Unobtainable secondary to altered mental status. Social History Smoking Status: Never Smoker Marital Status: Housing Status: assisted living Occupation Status: retired Current/Historical Medications Scheduled Aspirin (Aspirin Ec), 81 MG PO DAILY Atorvastatin (Lipitor), 20 MG PO QPM Escitalopram (Lexapro), 10 MG PO QAM Lisinopril (Lisinopril), 5 MG PO DAILY Lutein (Lutein), 12 MG PO DAILY Metoprolol Tartrate (Lopressor) (Lopressor), 25 MG PO Q12 Polyethylene Glycol-Propylene (Systane), 1 DROPS OPB BID Scheduled PRN Acetaminophen (Tylenol), 500 MG PO Q4 PRN for Pain or Fever Diphenhydramine Hcl (Banophen), 25 MG PO HS PRN for Itching Ketotifen Fumarate (Ophth) (Thera Tears Allergy Eye I), 2 DROPS OPB BID PRN for DRYNESS Nitroglycerin (Nitrostat), 0.4 MG UT UD PRN for Chest Pain Saline (Saline Mist), 2 SPRAYS KAEL HS PRN for DRYNESS Allergies Coded Allergies: Acetaminophen (Verified Allergy, Unknown, unknown, 06/24/17) Ciprofloxacin (Verified Allergy, Unknown, UNKNOWN, 06/24/17) Hydrocodone (Verified Allergy, Unknown, unknown, 06/24/17) Latex1 -Allergic Contact Dermititis (Verified Allergy, Unknown, unknown, ) Magnesium Salicylate (Verified Allergy, Unknown, UNKNOWN, 06/24/17) Sulfa Drugs (Verified Allergy, Unknown, UNKNOWN, 06/24/17) Sulfamethoxazole w/Trimethoprim (Verified Allergy, Unknown, UNKNOWN, ) Tetanus Toxoid (Verified Allergy, Unknown, unknown, 06/24/17) Physical Exam Vital Signs Date Time Temp Pulse Resp B/P (MAP) Pulse Ox O2 Delivery O2 Flow Rate FiO2 06/24/17 15:04 60 16 104/59 96 Room Air 06/24/17 14:15 49 20 138/57 96 Room Air 06/24/17 12:02 56 18 169/74 98 06/24/17 11:21 64 16 154/94 98 06/24/17 10:36 64 06/24/17 10:00 54 16 149/70 99 56 158/71 62 136/82 06/24/17 09:57 98 Room Air 06/24/17 09:54 46 16 143/77 06/24/17 09:33 47 06/24/17 09:08 36.7 46 18 182/78 98 Physical Exam GENERAL: Awake, alert, well-appearing, in no acute distress HENT: Normocephalic, atraumatic. Oropharynx unremarkable. EYES: Bilateral ecchymosis to the eyes. Normal conjunctiva. Sclera non-icteric. NECK: Supple. No nuchal rigidity. FROM. No JVD. RESPIRATORY: Clear to auscultation. CARDIAC: Regular rate, normal rhythm. Extremities warm and well perfused. Pulses equal. ABDOMEN: Soft, non-distended. No tenderness to palpation. No rebound or guarding. No masses. RECTAL: Deferred. MUSCULOSKELETAL: Chest examination reveals no tenderness. The back is symmetrical on inspection without obvious abnormality. There is no CVA tenderness to palpation. No joint edema. LOWER EXTREMITIES: Calves are equal size bilaterally and non-tender. No edema. No discoloration. NEURO: Normal sensorium. No sensory or motor deficits noted. SKIN: No rash or jaundice noted. Medical Decision & Procedures ER Provider Diagnostic Interpretation: Radiology results as stated below per my review and radiologist interpretation: CT SCAN OF THE BRAIN WITHOUT IV CONTRAST FINDINGS: Brain parenchyma: There are age-related involutional changes noting mild subcortical and periventricular microangiopathic change. There is no hemorrhage, mass effect, or evidence of acute territorial ischemia by CT criteria. Hsu-white matter is preserved. No extra-axial fluid collection is seen. Ventricles, sulci, cisterns: Prominent secondary to involutional change. Intracranial vasculature: There is atherosclerotic calcification of the cavernous carotid and vertebral arteries. Calvarium: The skeletal structures are osteopenic. There is no depressed calvarial fracture. Soft tissues: There is a frontal scalp hematoma. Sinuses and mastoids: The visualized paranasal sinuses are clear. The mastoid air cells are well pneumatized. Orbits: The bony orbits are grossly intact. There are bilateral ocular lens implants. IMPRESSION: There is no hemorrhage, mass effect, or evidence of acute territorial ischemia by CT criteria. No significant change from yesterday. Electronically signed by: Holden Dao M.D. 06/24/2017 10:59 AM (CHEST) THORAX WITH FINDINGS: The lungs are clear. The mediastinal vascular structures are within normal limits. No mediastinal or hilar lymphadenopathy. No pleural effusion or pneumothorax. Limited views of the upper abdomen demonstrate a normal liver and spleen. Minimal deep and basilar atelectasis. No significant mediastinal or hilar adenopathy. Small left posterior fat-containing Bochdalek hernia. Minimal apical fibrotic change. IMPRESSION: No acute process. The above report was generated using voice recognition software. It may contain grammatical, syntax or spelling errors. Electronically signed by: Quinn Busch M.D. 06/24/2017 11:08 AM Laboratory Results 06/24/17 09:24 Red Blood Count 4.28, Mean Corpuscular Volume 90.7, Mean Corpuscular Hemoglobin 30.8, Mean Corpuscular Hemoglobin Concent 34.0, Mean Platelet Volume 9.2, Neutrophils (%) (Auto) 58.0, Lymphocytes (%) (Auto) 30.5, Monocytes (%) (Auto) 7.7, Eosinophils (%) (Auto) 3.3, Basophils (%) (Auto) 0.3, Neutrophils # (Auto) 3.38, Lymphocytes # (Auto) 1.78, Monocytes # (Auto) 0.45, Eosinophils # (Auto) 0.19, Basophils # (Auto) 0.02 06/24/17 09:24 Test 06/24/17 09:24 06/24/17 09:31 06/24/17 10:28 White Blood Count 5.83 K/uL (4.8-10.8) Red Blood Count 4.28 M/uL (4.2-5.4) Hemoglobin 13.2 g/dL (12.0-16.0) Hematocrit 38.8 % (37-47) Mean Corpuscular Volume 90.7 fL (80-100) Mean Corpuscular Hemoglobin 30.8 pg (25-34) Mean Corpuscular Hemoglobin Concent 34.0 g/dl (32-36) Platelet Count 253 K/uL (130-400) Mean Platelet Volume 9.2 fL (7.4-10.4) Neutrophils (%) (Auto) 58.0 % Lymphocytes (%) (Auto) 30.5 % Monocytes (%) (Auto) 7.7 % Eosinophils (%) (Auto) 3.3 % Basophils (%) (Auto) 0.3 % Neutrophils # (Auto) 3.38 K/uL (1.4-6.5) Lymphocytes # (Auto) 1.78 K/uL (1.2-3.4) Monocytes # (Auto) 0.45 K/uL (0.11-0.59) Eosinophils # (Auto) 0.19 K/uL (0-0.5) Basophils # (Auto) 0.02 K/uL (0-0.2) RDW Standard Deviation 42.7 fL (36.4-46.3) RDW Coefficient of Variation 13.0 % (11.5-14.5) Immature Granulocyte % (Auto) 0.2 % Immature Granulocyte # (Auto) 0.01 K/uL (0.00-0.02) Est Creatinine Clear Calc Drug Dose 51.4 ml/min Estimated GFR () 80.8 Estimated GFR (Non- 69.7 BUN/Creatinine Ratio 20.6 (10-20) Calcium Level 9.7 mg/dl (8.5-10.1) Total Bilirubin 0.7 mg/dl (0.2-1) Direct Bilirubin 0.2 mg/dl (0-0.2) Aspartate Amino Transf (AST/SGOT) 17 U/L (15-37) Alanine Aminotransferase (ALT/SGPT) 20 U/L (12-78) Alkaline Phosphatase 132 U/L (45-117) Total Creatine Kinase 89 U/L (26-192) Creatine Kinase MB 1.9 ng/ml (0.5-3.6) Creatine Kinase MB Ratio 2.1 (0-3.0) Troponin I < 0.015 ng/ml (0-0.045) Total Protein 7.3 gm/dl (6.4-8.2) Albumin 3.5 gm/dl (3.4-5.0) Thyroid Stimulating Hormone (TSH) 4.810 uIu/ml (0.300-4.500) Bedside Hemoglobin 12.6 g/dl (12.0-16.0) Bedside Hematocrit 37 % (37-47) Bedside Sodium 141 mEq/L (135-144) Bedside Potassium 3.9 mEq/L (3.3-5.0) Bedside Chloride 104 mEq/L (101-112) Bedside Total CO2 28 mEq/l (24-31) Anion Gap 15.0 mmol/L (16-25) Bedside Blood Urea Nitrogen 17 mg/dl (7-18) Bedside Creatinine 0.8 mg/dl (0.6-1.3) Bedside Glucose (other) 89 mg/dl (70-99) Bedside Ionized Calcium (Stephen) 1.26 mmol/l (1.12-1.32) Urine Color YELLOW Urine Appearance CLEAR (CLEAR) Urine pH 7.0 (4.5-7.5) Urine Specific [place] 1.013 (1.000-1.030) Urine Protein NEG (NEG) Urine Glucose (UA) NEG (NEG) Urine Ketones NEG (NEG) Urine Occult Blood NEG (NEG) Urine Nitrite NEG (NEG) Urine Bilirubin NEG (NEG) Urine Urobilinogen NEG (NEG) Urine Leukocyte Esterase SMALL (NEG) Urine WBC (Auto) 5-10 /hpf (0-5) Urine RBC (Auto) 0-4 /hpf (0-4) Urine Hyaline Casts (Auto) 1-5 /lpf (0-5) Urine Epithelial Cells (Auto) >30 /lpf (0-5) Urine Bacteria (Auto) NEG (NEG) Urine Yeast (Auto) (NONE PRSENT) Labs reviewed by ED physician. Medications Administered Medications (Trade) Dose Ordered Sig/Génesis Route Start Time Stop Time Status Last Admin Dose Admin Sodium Chloride 1,000 ml @ 999 mls/hr Q1H1M STAT IV 06/24/17 09:16 06/24/17 10:16 DC 06/24/17 09:57 999 MLS/HR Atropine Sulfate (Atropine Sulfate 0.1mg/ml Inj) 0.5 mg NOW STAT IV 06/24/17 09:49 06/24/17 09:50 DC 06/24/17 09:54 0.5 MG Ceftriaxone Sodium (Rocephin Inj) 1 gm NOW STAT IV 06/24/17 11:15 06/24/17 11:17 DC 06/24/17 12:03 1 GM ECG Per My Interpretation Indication: other (fall) Rate (beats per minute): 47 Rhythm: sinus bradycardia Findings: no acute ischemic change, no ectopy, other (No ST elevations or depressions. ) ED Course 912: Past medical records reviewed. The patient was evaluated in room B3B. A complete history and physical examination was performed. 0916: Ordered Sodium Chloride 1000 ml @ 999 mls/hr IV. 0949: Ordered Atropine Sulfate 0.1 mg/mL Inj 0.5 mg IV. 1115: Ordered Rocephin Inj 1 gm IV. 1150: Upon reexamination the patient is resting comfortably. I discussed results and treatment plan with the patient. She verbalizes agreement and understanding. [facility] The patient will be evaluated for further management. Medical Decision Differential diagnosis: Etiologies such as metabolic, infection, hypoglycemia, electrolyte abnormalities , cardiac sources, intracerebral event, toxicologic, neurologic, as well as others were entertained. This is an 82-year-old female who presents the emergency department complaining of fall and altered mental status today. Upon arrival to the emergency department the patient's heart rate remaining between the 30s and 40s. I suspect that her fall may be related to her bradycardia as well as her altered mental status. The patient was given atropine in the emergency department with improvement in her symptoms. She was also given an IV fluid bolus. I did discuss the case with both cardiology as well as a hospitalist who agreed to admit the patient. Patient was in agreement with the treatment plan. Medication Reconcilliation Current Medication List: was personally reviewed by me Blood Pressure Screening Patient's blood pressure: Elevated blood pressure Blood pressure disposition: Referred to PCP Consults Time Called: 1145 Consulting Physician[facility] Return[facility] Call: 1150 I discussed the patient's case with Yady LEE, she has agreed to evaluate the patient for further management and care. Additional Consults: Time Called: 1151 Consulted Physician: Dr. Henriquez - Cardiology Returned Call: [phone] Additional Comments: I discussed the patient's case with Dr. Henriquez. He agrees with the treatment plan. Impression Primary Impression: UTI (urinary tract infection) Additional Impressions: Fall Bradycardia Scribe Attestation The scribe's documentation has been prepared under my direction and personally reviewed by me in its entirety. I confirm that the note above accurately reflects all work, treatment, procedures, and medical decision making performed by me. Departure Information Dispostion Being Evaluated By Hospitalist Referrals William Pope D.O. (PCP) Patient Instructions My [facility] Problem Qualifiers Primary Impression: UTI (urinary tract infection) Urinary tract infection type: acute cystitis Hematuria presence: without hematuria Qualified Codes: N30.00 - Acute cystitis without hematuria Additional Impressions: Fall Encounter type: initial encounter Qualified Codes: W19.XXXA - Unspecified fall, initial encounter
[2017-06-24] MEDS ORDERED: ONDANSETRON INJ 2 MG/ML 2 ML VIAL IV PRN (14:00)
--- NOTE | 2017-06-24 14:05 | History and Physical ---
History & Physical Date & Time of Service: Jun 24, 2017 at 14:04 . Chief Complaint: confusion . Primary Care Physician: William Pope D.O. . History of Present Illness Source: patient, family, clinic records, hospital records 82-year-old female followed by Dr. Pope. History of ischemic heart disease, hypertension, mild cognitive impairment, and other problems as noted. She resides at [facility] in [place]. Ambulatory without assistive devices, but prone to falling. She was seen in the ED early yesterday morning after sustaining a fall. Imaging of head, face, cervical spine, ribs did not reveal any fractures or intracranial hemorrhage. Urinalysis indicated urinary tract infection. A dose of intravenous ceftriaxone was administered and she was given a dose of cephalexin. Discharged to [facility]. This morning she was found to be confused and had difficulty finding her room. She was sent to the ED for evaluation. In the ED she was noted to be markedly bradycardic with sinus bradycardia in the 40s. She received atropine 0.5 mg IV with improvement of heart rate. Patient denies chest pain, shortness of breath, lightheadedness. No fever. Persistent dysuria. . Past Medical/Surgical History Chronic and Resolved Medical Problems: (1) CAD (coronary artery disease) Status: Chronic (2) Diverticulosis Status: Chronic (3) Dyslipidemia Status: Chronic (4) GERD (gastroesophageal reflux disease) Status: Chronic (5) Hypertension Status: Chronic (6) Hypothyroidism Status: Chronic (7) Mild cognitive impairment Status: Chronic Surgical Problems: (1) Status post appendectomy Status: Chronic (2) Status post coronary artery stent placement Status: Chronic (3) Status post hysterectomy Status: Chronic (4) Status post tonsillectomy Status: Chronic . Family History FATHER Coronary artery disease MOTHER Dementia Diabetes mellitus Social History Smoking Status: Never Smoker Alcohol Use: none Marital Status: Occupational Status: retired Allergies Coded Allergies: Acetaminophen (Verified Allergy, Unknown, unknown, 06/24/17) Ciprofloxacin (Verified Allergy, Unknown, UNKNOWN, 06/24/17) Hydrocodone (Verified Allergy, Unknown, unknown, 06/24/17) Latex1 -Allergic Contact Dermititis (Verified Allergy, Unknown, unknown, ) Magnesium Salicylate (Verified Allergy, Unknown, UNKNOWN, 06/24/17) Sulfa Drugs (Verified Allergy, Unknown, UNKNOWN, 06/24/17) Sulfamethoxazole w/Trimethoprim (Verified Allergy, Unknown, UNKNOWN, ) Tetanus Toxoid (Verified Allergy, Unknown, unknown, 06/24/17) Home Medications Scheduled Aspirin (Aspirin Ec), 81 MG PO DAILY Atorvastatin (Lipitor), 20 MG PO QPM Escitalopram (Lexapro), 10 MG PO QAM Lisinopril (Lisinopril), 5 MG PO DAILY Lutein (Lutein), 12 MG PO DAILY Metoprolol Tartrate (Lopressor) (Lopressor), 25 MG PO Q12 Polyethylene Glycol-Propylene (Systane), 1 DROPS OPB BID Scheduled PRN Acetaminophen (Tylenol), 500 MG PO Q4 PRN for Pain or Fever Diphenhydramine Hcl (Banophen), 25 MG PO HS PRN for Itching Ketotifen Fumarate (Ophth) (Thera Tears Allergy Eye I), 2 DROPS OPB BID PRN for DRYNESS Nitroglycerin (Nitrostat), 0.4 MG UT UD PRN for Chest Pain Saline (Saline Mist), 2 SPRAYS KAEL HS PRN for DRYNESS Review of Systems Constitutional: + weight loss (since 's passing last year), No fever Eyes: + diplopia (intermittent, chronic), No worsening of vision ENT: + sore throat (resolving), No hearing loss Respiratory: + cough (mild cough, resolving), + dyspnea on exertion (chronic) Cardiovascular: + edema (mild pedal), No chest pain Abdomen: No pain, No nausea, No vomiting, No diarrhea, No GI bleeding Musculoskeletal: + joint pain (shoulders) Genitourinary - Female: + dysuria, + urinary frequency Neurologic: + memory loss, + problem reported (no headaches, no focal weakness) Psychiatric: + depression symptoms Endocrine: + excessive thirst Hematologic / Lymphatic: + abnormal bleeding/bruising (bruises easily) Integumentary: + rash (dry skin) Physical Exam Vital Signs Date Time Temp Pulse Resp B/P (MAP) Pulse Ox O2 Delivery O2 Flow Rate FiO2 06/24/17 12:02 56 18 169/74 98 06/24/17 11:21 64 16 154/94 98 06/24/17 10:36 64 06/24/17 10:00 54 16 149/70 99 56 158/71 62 136/82 06/24/17 09:57 98 Room Air 06/24/17 09:54 46 16 143/77 06/24/17 09:33 47 06/24/17 09:08 36.7 46 18 182/78 98 CONSTITUTIONAL vital signs as noted above elderly female, well-nourished, no acute distress EYES periorbital ecchymoses and swelling conjunctivae clear; lids normal pupils equal and reactive to light EARS, NOSE, MOUTH AND THROAT external inspection of ears and nose unremarkable hearing grossly intact to spoken voice oropharynx clear NECK no masses; trachea midline thyroid normal RESPIRATORY normal respiratory effort; no respiratory distress clear to percussion clear to auscultation CARDIOVASCULAR regular rate and rhythm, bradycardic no murmur, gallop, rub appreciated carotid arteries 2/2 abdominal aorta not palpable pedal pulses diminished capillary refill toes < 2 seconds no pretibial edema GASTROINTESTINAL normal bowel sounds, soft, nontender; no palpable masses no hepatomegaly; no splenomegaly LYMPHATIC no cervical adenopathy MUSCULOSKELETAL no cyanosis; no digital clubbing no calf tenderness motor strength extremities grossly intact no hip pain with flexion SKIN no rash warm and dry NEUROLOGIC PERRL, EOMI, no facial palsy, no dysarthria, tongue midline patellar DTR's 2/2 plantar reflexes equivocally upgoing, probable withdrawal PSYCHIATRIC oriented to person, place, month, year (could not name exact date); can name president only able / willing to do serial 7s to 93; able to name months backwards x 6 mood and affect appropriate grieving over loss of last summer . Diagnostics Laboratory Results Results Past 24 Hours Test 06/24/17 09:24 06/24/17 09:31 06/24/17 10:28 Range/Units White Blood Count 5.83 4.8-10.8 K/uL Red Blood Count 4.28 4.2-5.4 M/uL Hemoglobin 13.2 12.0-16.0 g/dL Hematocrit 38.8 37-47 % Mean Corpuscular Volume 90.7 80-100 fL Mean Corpuscular Hemoglobin 30.8 25-34 pg Mean Corpuscular Hemoglobin Concent 34.0 32-36 g/dl Platelet Count 253 130-400 K/uL Mean Platelet Volume 9.2 7.4-10.4 fL Neutrophils (%) (Auto) 58.0 % Lymphocytes (%) (Auto) 30.5 % Monocytes (%) (Auto) 7.7 % Eosinophils (%) (Auto) 3.3 % Basophils (%) (Auto) 0.3 % Neutrophils # (Auto) 3.38 1.4-6.5 K/uL Lymphocytes # (Auto) 1.78 1.2-3.4 K/uL Monocytes # (Auto) 0.45 0.11-0.59 K/uL Eosinophils # (Auto) 0.19 0-0.5 K/uL Basophils # (Auto) 0.02 0-0.2 K/uL RDW Standard Deviation 42.7 36.4-46.3 fL RDW Coefficient of Variation 13.0 11.5-14.5 % Immature Granulocyte % (Auto) 0.2 % Immature Granulocyte # (Auto) 0.01 0.00-0.02 K/uL Sodium Level 140 136-145 mmol/L Potassium Level 3.8 3.5-5.1 mmol/L Chloride Level 106 98-107 mmol/L Carbon Dioxide Level 27 21-32 mmol/L Anion Gap 7.0 15.0 16-25 mmol/L Blood Urea Nitrogen 16 7-18 mg/dl Creatinine 0.79 0.60-1.20 mg/dl Est Creatinine Clear Calc Drug Dose 51.4 ml/min Estimated GFR () 80.8 Estimated GFR (Non- 69.7 BUN/Creatinine Ratio 20.6 10-20 Random Glucose 91 70-99 mg/dl Calcium Level 9.7 8.5-10.1 mg/dl Total Bilirubin 0.7 0.2-1 mg/dl Direct Bilirubin 0.2 0-0.2 mg/dl Aspartate Amino Transf (AST/SGOT) 17 15-37 U/L Alanine Aminotransferase (ALT/SGPT) 20 12-78 U/L Alkaline Phosphatase 132 45-117 U/L Total Creatine Kinase 89 26-192 U/L Creatine Kinase MB 1.9 0.5-3.6 ng/ml Creatine Kinase MB Ratio 2.1 0-3.0 Troponin I < 0.015 0-0.045 ng/ml Total Protein 7.3 6.4-8.2 gm/dl Albumin 3.5 3.4-5.0 gm/dl Thyroid Stimulating Hormone (TSH) 4.810 0.300-4.500 uIu/ml Bedside Hemoglobin 12.6 12.0-16.0 g/dl Bedside Hematocrit 37 37-47 % Bedside Sodium 141 135-144 mEq/L Bedside Potassium 3.9 3.3-5.0 mEq/L Bedside Chloride 104 101-112 mEq/L Bedside Total CO2 28 24-31 mEq/l Bedside Blood Urea Nitrogen 17 7-18 mg/dl Bedside Creatinine 0.8 0.6-1.3 mg/dl Bedside Glucose (other) 89 70-99 mg/dl Bedside Ionized Calcium (Stephen) 1.26 1.12-1.32 mmol/l Urine Color YELLOW Urine Appearance CLEAR CLEAR Urine pH 7.0 4.5-7.5 Urine Specific [place] 1.013 1.000-1.030 Urine Protein NEG NEG Urine Glucose (UA) NEG NEG Urine Ketones NEG NEG Urine Occult Blood NEG NEG Urine Nitrite NEG NEG Urine Bilirubin NEG NEG Urine Urobilinogen NEG NEG Urine Leukocyte Esterase SMALL NEG Urine WBC (Auto) 5-10 0-5 /hpf Urine RBC (Auto) 0-4 0-4 /hpf Urine Hyaline Casts (Auto) 1-5 0-5 /lpf Urine Epithelial Cells (Auto) >30 0-5 /lpf Urine Bacteria (Auto) NEG NEG Urine Yeast (Auto) NONE PRSENT Diagnostic Radiology CT head demonstrated small vessel ischemic changes, no hemorrhage, no apparent acute infarcts. CT chest did not show any traumatic injuries, infiltrates, effusions, CHF. . EKG EKG performed at 09:19 reviewed and demonstrated sinus bradycardia at 47/minute , no acute ST or T-wave abnormalities. . Impression Assessment and Plan SYMPTOMATIC BRADYCARDIA Sinus bradycardia in the 40s in ED. Received 1 dose of atropine. Rhythm sinus jaqui 50s during my assessment. Takes metoprolol tartrate 25 mg BID for ischemic heart disease. Hold metoprolol x 24 hours, then resume at reduced dose of 12.5 mg BID with hold parameters. Monitor on Telemetry Unit. ALTERED MENTAL STATUS Underlying mild cognitive impairment. Several possible contributing factors: encephalopathy secondary to UTI symptomatic bradycardia diphenhydramine Address specific problems as discussed. URINARY TRACT INFECTION UA obtained in ED yesterday demonstrated nitrites, leukocyte esterase, WBC's, bacteria. Urine culture growing gram neg rods and Strep sp. Does not appear to be septic. Continue ceftriaxone pending final culture results. FALLS Chronic problem. Encouraged to utilize walker. PT / OT evaluations. CORONARY ARTERY DISEASE History non-STEMI, s/p PCI with stent. No anginal symptoms. Continue aspirin, reduced dose of metoprolol tartrate, and statin. HYPERTENSION Continue lisinopril. Reduce dose of metoprolol as discussed below. Follow and titrate Rx. DYSLIPIDEMIA Continue atorvastatin. DEPRESSION Continue escitalopram. MILD COGNITIVE IMPAIRMENT Ongoing monitoring for delirium. Avoid anticholinergic meds whenever possible. VTE PROPHYLAXIS No anticoagulants because of fall and head injury. SCD's. Ambulate with assistance. RESUSCITATION STATUS Discussed with patient and her family. She has a living will and clearly articulates that she prefers a natural passing and does not want CPR or other extraordinary measures initiated at end of life. Therefore, code status = "Level 5" (DNR). DISPOSITION Admit to Telemetry Unit. Expected return to [facility] under care of Dr. Pope, probably with PT & OT services. Daughter visiting in ED and given update. . Resuscitation Status VTE Prophylaxis Will order VTE Prophylaxis: Yes
[2017-06-24] MEDS ORDERED: NITROGLYCERIN 0.4 MG SL PER TAB CHARGE UT PRN (14:15)
[2017-06-24] MEDS ORDERED: SODIUM CHLORIDE 0.65% NA SOLN 45 ML (OCEAN) NAE PRN (14:15)
[2017-06-24] MEDS ORDERED: HYDROCORTISONE 1% OINT 30 GM TUBE EXT PRN (14:30)
[2017-06-24 17:30] VITALS: BP 157/82; PULSE 48; TEMP 36.4; O2SAT 98; Ht 167.6 cm; Wt 59.7 kg
[2017-06-24] MEDS ORDERED: INFLUENZA VACCINE HIGH DOSE 65+ 0.5 ML SYR IM. ONE (19:00)
[2017-06-24] MEDS ORDERED: INFLUENZA ADMINISTRATION CHARGE ONE ×2 (19:00→19:45)
[2017-06-24] MEDS ORDERED: PNEUMOCOCCAL ADMINISTRATION CHARGE ONE (19:00)
[2017-06-24] MEDS ORDERED: PNEUMOCOCCAL POLYSACCHARIDES 25 MCG/0.5 ML VIAL/SYR IM. ONE (19:00)
[2017-06-24] MEDS: ATORVASTATIN 20 MG TAB PO SCH (19:25)
[2017-06-24] MEDS: ACETAMINOPHEN 325 MG TAB PO PRN (19:26)
[2017-06-24] MEDS: ARTIFICIAL TEARS OP SOLN OPB SCH (19:26)
[2017-06-24 19:44] VITALS: BP 134/74; PULSE 52; TEMP 36.4; O2SAT 96
[2017-06-24] MEDS ORDERED: INFLUENZA VIRUS QUAD VACCINE 0.5 ML SYR IM. ONE (19:45)
[2017-06-24 23:33] VITALS: BP 112/56; PULSE 50; TEMP 37; O2SAT 96
[2017-06-25 03:40] VITALS: BP_SYST 137; BP_SYST 155; BP_SYST 160; BP_DIAS 73; BP_DIAS 76; BP_DIAS 86; PULSE 51; PULSE 52; TEMP 36.9; O2SAT 98
[2017-06-25 08:01] VITALS: BP 109/73; PULSE 66; TEMP 36.5; O2SAT 99
[2017-06-25] MEDS: LISINOPRIL 5 MG TAB PO SCH (08:02)
[2017-06-25] MEDS: METOPROLOL TARTRATE 25 MG TAB PO SCH ×2 (08:02→20:39)
[2017-06-25] MEDS: ASPIRIN 81 MG ECTAB PO SCH (08:03)
[2017-06-25] MEDS: ESCITALOPRAM OXALATE 10 MG TAB PO SCH (08:03)
[2017-06-25] MEDS: ARTIFICIAL TEARS OP SOLN OPB SCH ×2 (08:05→20:39)
[2017-06-25 11:37] LABS: BASO % 0.2 %; BASO ABS # 0.01 K/uL (0-0.2); EOS % 2.8 %; EOS ABS # 0.16 K/uL (0-0.5); IG# 0.01 K/uL (0.00-0.02); LYMPH % 26.2 %; LYMPH ABS # 1.47 K/uL (1.2-3.4); MEAN CELL VOLUME 90.5 fL (80-100); MEAN CORPUSCULAR HGB CONC 34.2 g/dl (32-36); MEAN PLATELET VOLUME 9.5 fL (7.4-10.4); MONO % 7.5 %; MONO ABS # 0.42 K/uL (0.11-0.59); NEUT % 63.1 %; NEUT ABS # 3.55 K/uL (1.4-6.5); PLATELET COUNT 258 K/uL (130-400); RED CELL DISTRIBUTION WIDTH CV 12.9 % (11.5-14.5); RED CELL DISTRIBUTION WIDTH SD 42.6 fL (36.4-46.3); WHITE BLOOD COUNT 5.62 K/uL (4.8-10.8)
--- NOTE | 2017-06-25 11:37 | Progress Note ---
Medicine Progress Note Date & Time of Visit: Jun 25, 2017 at 11:26. Subjective seen sitting up in bed, comfortable pleasant, smiling, not in distress oriented x 2, occasionally goes off tangent has mild generalized headache denies changes with vision, eye pain, facial pain, focal weakness/numbness no abdominal pain, urinary symptoms no active chest pain, dyspnea, dizziness, palpitations no abdominal pain, nausea/vomiting denies other symptoms Objective Last 8 Hrs Date Time Temp Pulse Resp B/P (MAP) Pulse Ox O2 Delivery O2 Flow Rate FiO2 06/25/17 08:01 36.5 66 18 109/73 (85) 99 06/25/17 08:00 Room Air 06/25/17 03:40 36.9 51 18 155/76 (102) 98 Room Air 48 160/73 (102) 52 137/86 (103) Physical Exam: General- oriented x 2, not in distress, speaks in sentences with no effort Head-no visible trauma in the scalp Positive left frontal region positive hematoma and contusion Eyes-right eye: Positive periorbital ecchymosis Left eye: Positive periorbital ecchymosis PERRL, EOMI, anicteric ENT- oropharynx clear Neck- supple, no JVD, no adenopathy, no thyromegaly; carotids +2/2, no bruits appreciated Lungs- clear to auscultation bilaterally no rales/wheezes Heart- regular rhythm; no murmur, normal rate Abdomen- normal bowel sounds, soft, nontender, non distended Extremities- no pretibial edema, no calf tenderness; peripheral pulses intact Neuro- alert, oriented x 2; no gross focal deficits Skin- warm & dry Laboratory Results: Last 24 Hours Test 06/25/17 11:21 Assessment & Plan SYMPTOMATIC BRADYCARDIA Sinus bradycardia in the 40s in ED. Received 1 dose of atropine. Rhythm sinus jaqui 50s during my assessment. Takes metoprolol tartrate 25 mg BID for ischemic heart disease. -- Metoprolol tartrate decreased to 12.5mg po BID HR improving -- check TFT to r/o Hypothyroidism -- monitor in Tele ALTERED MENTAL STATUS Underlying mild cognitive impairment. Several possible contributing factors: encephalopathy secondary to UTI -- management noted below symptomatic bradycardia -- management noted above diphenhydramine -- improving PT/OT in progress URINARY TRACT INFECTION UA obtained in ED yesterday demonstrated nitrites, leukocyte esterase, WBC's, bacteria. Urine culture growing Klebsiella, Strep -- afebrile continue Ceftri Day 2 FALLS Chronic problem. Encouraged to utilize walker. PT / OT ordered -- (+) Periorbital ecchymoses ff up CT scan of the head today CORONARY ARTERY DISEASE History non-STEMI, s/p PCI with stent. No anginal symptoms. Continue aspirin, reduced dose of metoprolol tartrate, and statin. HYPERTENSION Continue lisinopril. Reduce dose of metoprolol as discussed below. monitor DYSLIPIDEMIA Continue atorvastatin. DEPRESSION Continue escitalopram. MILD COGNITIVE IMPAIRMENT Ongoing monitoring for delirium. Avoid anticholinergic meds whenever possible. VTE PROPHYLAXIS No anticoagulants because of fall and head injury. SCD's. Ambulate with assistance. RESUSCITATION STATUS Discussed with patient and her family. She has a living will and clearly articulates that she prefers a natural passing and does not want CPR or other extraordinary measures initiated at end of life. Therefore, code status = "Level 5" (DNR). DISPOSITION Expected return to [facility] under care of Dr. Pope, probably with PT & OT services. Current Inpatient Medications: Current Inpatient Medications Medications (Trade) Dose Ordered Sig/Génesis Route Start Time Stop Time Status Last Admin Dose Admin Ioversol (Optiray 320) 125 ml UD PRN IV 06/24/17 09:30 06/28/17 09:29 Acetaminophen (Tylenol Tab) 650 mg Q4H PRN PO 06/24/17 14:00 07/24/17 13:59 06/24/17 19:26 325 MG Ondansetron HCl (Zofran Inj) 4 mg Q6H PRN IV 06/24/17 14:00 07/24/17 13:59 Aspirin (Ecotrin Tab) 81 mg DAILY PO 06/25/17 09:00 07/25/17 08:59 06/25/17 08:03 81 MG Atorvastatin Calcium (Lipitor Tab) 20 mg QPM PO 06/24/17 21:00 07/24/17 20:59 06/24/17 19:25 20 MG Escitalopram Oxalate (Lexapro Tab) 10 mg QAM PO 06/25/17 09:00 07/25/17 08:59 06/25/17 08:03 10 MG Lisinopril (Zestril Tab) 5 mg DAILY PO 06/25/17 09:00 07/25/17 08:59 06/25/17 08:02 5 MG Nitroglycerin (Nitrostat Tab) 0.4 mg UD PRN UT 06/24/17 14:15 07/24/17 14:14 Sodium Chloride ([place] Nasal [place]) 2 sprays HS PRN KAEL 06/24/17 14:15 07/24/17 14:14 Artificial Tears (Artificial Tears) 1 drops BID OPB 06/24/17 21:00 07/24/17 20:59 06/25/17 08:05 1 DROPS Metoprolol Tartrate (Lopressor Tab) 12.5 mg BID PO 06/25/17 09:00 07/25/17 08:59 06/25/17 08:02 12.5 MG Hydrocortisone (Hydrocortisone 1% Oint) 1 appln BID PRN EXT 06/24/17 14:30 07/24/17 14:29 Ceftriaxone Sodium 1 gm/ Dextrose 50 ml @ 100 mls/hr DAILY@1200 IV 06/25/17 12:00 06/29/17 11:59
--- NOTE | 2017-06-25 11:41 | Progress Note ---
Progress Note Date of Service Jun 25, 2017. Progress Note attempted to call patient's daughter Nancel family member answered, stated patient is on the way to the hospital will update patient's daughter when she arrives in the hospital Maged Haywood MD
[2017-06-25 12:00] VITALS: BP 120/71; PULSE 69; TEMP 36.7; O2SAT 95
[2017-06-25 12:00] LABS: CALCIUM 9.9 mg/dl (8.5-10.1); CREATININE 0.85 mg/dl (0.60-1.20)
--- NOTE | 2017-06-25 12:51 | DIAGNOSTIC IMAGING REPORT ---
HEAD WITHOUT CONTRAST (CT) CT DOSE: 614.27 mGy.cm HISTORY: Trauma r/o skull fracture, intracranial injury TECHNIQUE: Multiaxial CT images of the head were performed without the use of intravenous contrast. A dose lowering technique was utilized adhering to the principles of ALARA. Comparison: 06/24/2017. 06/23/2017. Findings: The paranasal sinuses and mastoid air cells are clear. The calvarium and skull base are intact. The ventricles and sulci are within normal limits. There is no mass, hematoma, midline shift, or acute infarct. Age-related chronic small vessel change. Mild extracranial left prefrontal soft tissue edema. Impression: No acute intracranial abnormality. Pre-existing left extracranial soft tissue edema. The above report was generated using voice recognition software. It may contain grammatical, syntax or spelling errors. Electronically signed by: Quinn Busch M.D. 06/25/2017 12:49 PM Dictated Date/Time: 06/25/2017 12:47 PM
[2017-06-25] MEDS: CEFTRIAXONE SOD INJ 1 GM in DEXTROSE 5% ADD-VANTAGE 50ML 50 ML IV SCH (14:08)
[2017-06-25 16:48] VITALS: BP_SYST 127; BP_SYST 144; BP_SYST 145; BP_DIAS 73; BP_DIAS 75; BP_DIAS 83; PULSE 53; TEMP 36.5; O2SAT 97
--- NOTE | 2017-06-25 20:06 | ECHOCARDIOGRAM REPORT ---
*NOTICE TO RECEIVING DEMOCRAT AGENCY This information is strictly Confidential and protected under [place] law. [place] law prohibits you from making any further disclosure of this information unless further disclosure is expressly permitted by the written consent of the person to whom it pertains or is authorized by law. A general authorization for the release of medical or other information is not sufficient for this purpose. Hospital accepts no responsibility if the information is made available to any other person, INCLUDING THE PATIENT. Interpretation Summary * Name: DANDY GREENBERG I Study Date: 06/25/2017 02:10 PM BP: 120/71 mmHg * Patient Location: C.2T\S\E216\S\1 HR: 51 * : 1935 (M/d/yy) Gender: Female Height: 66 in * Age: 82 yrs Ethnicity: [place] Weight: 158 lb * Ordering Physician: German Haywood * Referring Physician: MARY CHAWLA * Performed By: Judy Tapia RCS * * Reason For Study: S/P FALL / BRADYCARDIA * BSA: 1.8 m2 * The study was technically adequate. * -- Conclusions -- * The left ventricular wall motion is normal. * There is mild concentric left ventricular hypertrophy. * The LV Ejection Fraction = 60-65%. * The right ventricle is normal in size and function. * Aortic valve sclerosis mild, without significant aortic valvular stenosis. * There is mild mitral regurgitation. * Diastolic dysfunction, Grade II (pseudonormalization pattern). Procedure Details * A complete two-dimensional transthoracic echocardiogram was performed (2D, M-mode, Doppler and color flow Doppler). Left Ventricle * The left ventricle is normal in size. * There is mild concentric left ventricular hypertrophy. * Left ventricular systolic function is normal. * Ejection Fraction = 60-65%. * The left ventricular wall motion is normal. Right Ventricle * The right ventricle is normal in size and function. * The right ventricular systolic function is normal as assessed by tricuspid annular plane systolic excursion (TAPSE) (normal >1.5 cm). Atria * The left atrium is mildly dilated. * Right atrial size is normal. * There is no evidence of atrial septal defect, but resolution does not allow assessment for a patent foramen ovale. Mitral Valve * There is mild mitral annular calcification. * There is no mitral valve stenosis. * There is mild mitral regurgitation. Tricuspid Valve * The tricuspid valve is normal. * There is no tricuspid stenosis. * Significant tricuspid regurgitation is absent. * Doppler findings do not suggest pulmonary hypertension. Aortic Valve * The aortic valve is trileaflet. * Aortic valve sclerosis mild, without significant aortic valvular stenosis. * Aortic stenosis is absent. * There is no significant aortic regurgitation. Pulmonic Valve * The pulmonary valve is not well seen, but the Doppler examination is normal without significant regurgitation or stenosis. Great Vessels * The aortic root and proximal ascending aorta are normal sized. Pericardium/Pleural * There is no pericardial effusion. Great Vessels * Normal inferior vena cava diameter and respiratory variation suggests normal central venous pressure. * Normal inferior vena cava size and collapsability with sniff indicates a normal right atrial pressure of 3 mmHg Left Ventricular Diastolic Function * Diastolic dysfunction, Grade II (pseudonormalization pattern). MMode 2D Measurements and Calculations IVSd 1.7 cm IVSs 2.0 cm LVIDd 4.1 cm LVIDs 2.9 cm LVPWd 1.5 cm LVPWs 1.8 cm IVS/LVPW 1.1 FS 28.6 % EDV(Teich) 74.5 ml ESV(Teich) 33.1 ml EF(Teich) 55.5 % EDV(cubed) 69.2 ml ESV(cubed) 25.2 ml EF(cubed) 63.5 % % IVS thick 18.0 % % LVPW thick 21.2 % LV mass(C)d 261.6 grams LV mass(C)dI 144.6 grams/m\S\2 LV mass(C)s 230.2 grams LV mass(C)sI 127.2 grams/m\S\2 SV(Teich) 41.3 ml SI(Teich) 22.9 ml/m\S\2 SV(cubed) 44.0 ml SI(cubed) 24.3 ml/m\S\2 Ao root diam 3.2 cm Ao root area 8.1 cm\S\2 LA dimension 4.4 cm LA/Ao 1.4 LVOT diam 2.0 cm LVOT area 3.0 cm\S\2 LVAd ap4 29.4 cm\S\2 LVLd ap4 7.0 cm EDV(MOD-sp4) 97.5 ml EDV(sp4-el) 104.4 ml LVAs ap4 21.7 cm\S\2 LVLs ap4 6.6 cm ESV(MOD-sp4) 58.0 ml ESV(sp4-el) 60.4 ml EF(MOD-sp4) 40.5 % EF(sp4-el) 42.1 % LVAd ap2 25.8 cm\S\2 LVLd ap2 6.8 cm EDV(MOD-sp2) 79.8 ml EDV(sp2-el) 83.3 ml LVAs ap2 18.3 cm\S\2 LVLs ap2 6.5 cm ESV(MOD-sp2) 43.5 ml ESV(sp2-el) 44.0 ml EF(MOD-sp2) 45.5 % EF(sp2-el) 47.2 % LVLd %diff -3.68 % EDV(MOD-bp) 90.0 ml LVLs %diff -2.35 % ESV(MOD-bp) 50.4 ml EF(MOD-bp) 44.0 % SV(MOD-sp4) 39.5 ml SI(MOD-sp4) 21.8 ml/m\S\2 SV(MOD-sp2) 36.3 ml SI(MOD-sp2) 20.1 ml/m\S\2 SV(MOD-bp) 39.6 ml SI(MOD-bp) 21.9 ml/m\S\2 SV(sp4-el) 44.0 ml SI(sp4-el) 24.3 ml/m\S\2 SV(sp2-el) 39.3 ml SI(sp2-el) 21.7 ml/m\S\2 Doppler Measurements and Calculations MV E max madan 104.1 cm/sec MV A max madan 52.3 cm/sec MV E/A 2.0 MV P1/2t max madan 106.1 cm/sec MV P1/2t 145.1 msec MVA(P1/2t) 1.5 cm\S\2 MV dec slope 214.2 cm/sec\S\2 MV dec time 0.19 sec Ao V2 max 138.7 cm/sec Ao max PG 7.7 mmHg Ao max PG (full) 0.65 mmHg SHASHI(V,A) 2.9 cm\S\2 SHASHI(V,D) 2.9 cm\S\2 LV V1 max PG 7.0 mmHg LV V1 max 132.7 cm/sec MR max madan 448.1 cm/sec MR max PG 80.3 mmHg PA V2 max 107.8 cm/sec PA max PG 4.7 mmHg
[2017-06-25 20:24] VITALS: BP 118/57; PULSE 66; TEMP 36.6; O2SAT 98
[2017-06-25] MEDS: ATORVASTATIN 20 MG TAB PO SCH (20:39)
[2017-06-25] MEDS ORDERED: HALOPERIDOL 1 MG TAB PO PRN (22:30)
[2017-06-25] MEDS ORDERED: HALOPERIDOL LACTATE 5 MG/ML 1 ML VIAL IM PRN (22:30)
[2017-06-26] VITALS (11 sets, daily range): BP systolic 118–179; BP diastolic 66–97; PULSE 47–90; TEMP 36.4–37; O2SAT 96–98
[2017-06-26] MEDS: ATORVASTATIN 20 MG TAB PO SCH (09:33)
[2017-06-26] MEDS: METOPROLOL TARTRATE 25 MG TAB PO SCH ×2 (09:34→20:20)
[2017-06-26] MEDS: ASPIRIN 81 MG ECTAB PO SCH (09:34)
[2017-06-26] MEDS: ESCITALOPRAM OXALATE 10 MG TAB PO SCH (09:35)
[2017-06-26] MEDS: ARTIFICIAL TEARS OP SOLN OPB SCH ×2 (09:36→20:21)
[2017-06-26] MEDS: LISINOPRIL 5 MG TAB PO SCH (09:36)
--- NOTE | 2017-06-26 10:52 | Progress Note ---
Internal Med Progress Note Date of Service: Jun 26, 2017. Provider Documentation: SUBJECTIVE: Seen and examined at bedside Patient was confused and agitated overnight Doing well this morning Patient was apologized for behavior overnight Family concerned that patient has hallucinations and has possible dissociative disorder Denies chest pain, SOB, dizziness, abd pain No other complaints OBJECTIVE: Vital Signs-as noted below Physical Exam: General Appearance:Moderately built and nourished, no apparent distress Head: normocephalic, Atraumatic Eyes: normal inspection, EOMI, PERRL, Periorbital ecchymosis Neck: supple, Trachea midline Respiratory/Chest: Normal breath sounds, CTA Cardiovascular: S1, S2, No murmur Abdomen/GI:Soft, Non tender, Bowel sounds present Extremities/Musculoskelatal:normal inspection, Trace edema Neurologic/Psych:AAOX3, grossly no focal neurological deficits Skin: normal color, warm Lab data as noted below. ASSESSMENT & PLAN: Symptomatic Bradycardia: Sinus bradycardia in the 40s in ED. Metoprolol dose decreased from 25 mg BID to 12.5mg BID HR better TSH elevated, Normal Free T4, Needs repeat testing as outpatient Positive Orthostatics, Compression stockings monitor in Tele ECHO as below Altered Mental Status: multifactorial Underlying mild cognitive impairment Encephalopathy secondary to UTI, Meds (diphenhydramine) Received Haldol PRN Family concerned about hallucinations and possible dissociative disorder Will consult Psychiatry monitor UTI Urine culture: growing Klebsiella, Strep continue ceftriaxone Day # 3 H/O multiple falls Chronic problem. Encouraged to utilize walker. PT / OT ordered CT head: No acute intracranial abnormality CAD H/O NSTEMI s/p PCI with stent. No anginal symptoms. Continue aspirin, reduced dose of metoprolol tartrate, and statin. HTN Continue lisinopril. monitor Dyslipidemia Continue atorvastatin. Depression: Continue escitalopram. DVT Px: No anticoagulants because of fall and head injury. SCD's. Ambulate with assistance. Code Status: DNR Disposition: Plan to discharge to [facility] under care of Dr. Pope when stable ECHO: * The left ventricular wall motion is normal. * There is mild concentric left ventricular hypertrophy. * Ejection Fraction = 60-65%. * The right ventricle is normal in size and function. * Aortic valve sclerosis mild, without significant aortic valvular stenosis. * There is mild mitral regurgitation. * Diastolic dysfunction, Grade II (pseudonormalization pattern). Vital Signs: Date Time Temp Pulse Resp B/P (MAP) Pulse Ox O2 Delivery O2 Flow Rate FiO2 06/26/17 08:39 90 06/26/17 07:27 36.7 53 16 179/70 (106) 98 Room Air 54 171/73 (105) 64 147/68 (94) 06/26/17 04:52 Room Air 06/26/17 04:02 63 164/79 (107) 06/26/17 04:01 65 170/82 (111) 06/26/17 03:59 36.4 62 18 171/79 (109) 98 Room Air 06/26/17 01:32 84 142/89 (106) 06/26/17 01:26 36.5 88 19 134/97 (109) 97 Room Air 06/25/17 20:37 Room Air 06/25/17 20:24 36.6 66 16 118/57 (77) 98 Room Air 06/25/17 16:48 36.5 53 16 144/75 (98) 97 Room Air 145/83 (103) 127/73 (91) 06/25/17 16:00 Room Air 06/25/17 12:00 Room Air 06/25/17 12:00 36.7 69 18 120/71 (87) 95 Lab Results: Results Past 24 Hours Test 06/25/17 11:21 Range/Units White Blood Count 5.62 4.8-10.8 K/uL Red Blood Count 4.20 4.2-5.4 M/uL Hemoglobin 13.0 12.0-16.0 g/dL Hematocrit 38.0 37-47 % Mean Corpuscular Volume 90.5 80-100 fL Mean Corpuscular Hemoglobin 31.0 25-34 pg Mean Corpuscular Hemoglobin Concent 34.2 32-36 g/dl Platelet Count 258 130-400 K/uL Mean Platelet Volume 9.5 7.4-10.4 fL Neutrophils (%) (Auto) 63.1 % Lymphocytes (%) (Auto) 26.2 % Monocytes (%) (Auto) 7.5 % Eosinophils (%) (Auto) 2.8 % Basophils (%) (Auto) 0.2 % Neutrophils # (Auto) 3.55 1.4-6.5 K/uL Lymphocytes # (Auto) 1.47 1.2-3.4 K/uL Monocytes # (Auto) 0.42 0.11-0.59 K/uL Eosinophils # (Auto) 0.16 0-0.5 K/uL Basophils # (Auto) 0.01 0-0.2 K/uL RDW Standard Deviation 42.6 36.4-46.3 fL RDW Coefficient of Variation 12.9 11.5-14.5 % Immature Granulocyte % (Auto) 0.2 % Immature Granulocyte # (Auto) 0.01 0.00-0.02 K/uL Sodium Level 139 136-145 mmol/L Potassium Level 4.0 3.5-5.1 mmol/L Chloride Level 106 98-107 mmol/L Carbon Dioxide Level 29 21-32 mmol/L Anion Gap 4.0 3-11 mmol/L Blood Urea Nitrogen 17 7-18 mg/dl Creatinine 0.85 0.60-1.20 mg/dl Est Creatinine Clear Calc Drug Dose 51.8 ml/min Estimated GFR () 74.0 Estimated GFR (Non- 63.8 BUN/Creatinine Ratio 20.0 10-20 Random Glucose 84 70-99 mg/dl Calcium Level 9.9 8.5-10.1 mg/dl Thyroid Stimulating Hormone (TSH) 6.520 0.300-4.500 uIu/ml Free Thyroxine 1.08 0.80-1.60 ng/dl
[2017-06-26] MEDS: CEFTRIAXONE SOD INJ 1 GM in DEXTROSE 5% ADD-VANTAGE 50ML 50 ML IV SCH (12:34)
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
[2017-06-27 03:33] VITALS: BP 148/74; PULSE 51; TEMP 36.7; O2SAT 96
[2017-06-27 07:30] VITALS: BP_SYST 138; BP_SYST 158; BP_SYST 166; BP_DIAS 74; BP_DIAS 80; PULSE 50; PULSE 54; PULSE 62; TEMP 36.4; O2SAT 98
[2017-06-27 08:15] LABS: CALCIUM 9.2 mg/dl (8.5-10.1); CREATININE 0.73 mg/dl (0.60-1.20); POTASSIUM 3.8 mmol/L (3.5-5.1)
[2017-06-27] MEDS: LISINOPRIL 5 MG TAB PO SCH (08:34)
[2017-06-27] MEDS: METOPROLOL TARTRATE 25 MG TAB PO SCH ×2 (08:34→20:15)
[2017-06-27] MEDS: ARTIFICIAL TEARS OP SOLN OPB SCH ×2 (08:34→20:13)
[2017-06-27] MEDS: ESCITALOPRAM OXALATE 10 MG TAB PO SCH (08:34)
[2017-06-27] MEDS: ASPIRIN 81 MG ECTAB PO SCH (08:34)
[2017-06-27 12:00] VITALS: BP 156/76; PULSE 52; TEMP 36.6; O2SAT 99
[2017-06-27] MEDS: CEFTRIAXONE SOD INJ 1 GM in DEXTROSE 5% ADD-VANTAGE 50ML 50 ML IV SCH (13:34)
--- NOTE | 2017-06-27 14:07 | Progress Note ---
Internal Med Progress Note Date of Service: Jun 27, 2017. Provider Documentation: SUBJECTIVE: Seen and examined at bedside Mental status back to baseline per daughter Patient recognizes that she had hallucinations Denies chest pain, SOB, dizziness, abd pain No new complaints OBJECTIVE: Vital Signs-as noted below Physical Exam: General Appearance:Moderately built and nourished, no apparent distress Head: normocephalic, Atraumatic Eyes: normal inspection, EOMI, PERRL, Periorbital ecchymosis Neck: supple, Trachea midline Respiratory/Chest: Normal breath sounds, CTA Cardiovascular: S1, S2, No murmur Abdomen/GI:Soft, Non tender, Bowel sounds present Extremities/Musculoskelatal:normal inspection, Trace edema Neurologic/Psych:AAOX3, grossly no focal neurological deficits Skin: normal color, warm Lab data as noted below. ASSESSMENT & PLAN: Symptomatic Bradycardia: Sinus bradycardia in the 40s in ED. Metoprolol dose decreased from 25 mg BID to 6.25 mg BID TSH elevated, Normal Free T4, Needs repeat testing as outpatient Positive Orthostatics, Compression stockings monitor in Tele ECHO as below Altered Mental Status: multifactorial Underlying mild cognitive impairment: Dementia with delirium Encephalopathy secondary to UTI, Meds (diphenhydramine) Risperdal PRN Family concerned about hallucinations and possible dissociative disorder Appreciate Psychiatry Input monitor UTI Urine culture: growing Klebsiella, Strep continue ceftriaxone Day # 4 H/O multiple falls Chronic problem. Encouraged to utilize walker. PT / OT ordered CT head: No acute intracranial abnormality CAD H/O NSTEMI s/p PCI with stent. No anginal symptoms. Continue aspirin, reduced dose of metoprolol tartrate, and statin. HTN Continue lisinopril. monitor Dyslipidemia Continue atorvastatin. Depression: Continue escitalopram. DVT Px: No anticoagulants because of fall and head injury. SCD's. Ambulate with assistance. Code Status: DNR Disposition: Plan to discharge to [facility] under care of Dr. Pope when stable ECHO: * The left ventricular wall motion is normal. * There is mild concentric left ventricular hypertrophy. * Ejection Fraction = 60-65%. * The right ventricle is normal in size and function. * Aortic valve sclerosis mild, without significant aortic valvular stenosis. * There is mild mitral regurgitation. * Diastolic dysfunction, Grade II (pseudonormalization pattern). Vital Signs: Date Time Temp Pulse Resp B/P (MAP) Pulse Ox O2 Delivery O2 Flow Rate FiO2 06/27/17 12:00 36.6 52 20 156/76 (102) 99 Room Air 06/27/17 07:30 36.4 50 18 158/74 (102) 98 Room Air 54 166/74 (104) 62 138/80 (99) 06/27/17 03:33 36.7 51 18 148/74 (98) 96 Room Air 06/27/17 03:00 Room Air 06/26/17 23:33 36.9 47 17 144/75 (98) 97 Room Air 06/26/17 23:00 Room Air 06/26/17 20:00 Room Air 06/26/17 19:00 36.5 55 20 138/73 (94) 97 Room Air 134/79 (97) 118/70 (86) 06/26/17 16:00 Room Air 06/26/17 15:17 36.7 54 19 129/70 (89) 98 Room Air Lab Results: Results Past 24 Hours Test 06/27/17 07:22 Range/Units Sodium Level 144 136-145 mmol/L Potassium Level 3.8 3.5-5.1 mmol/L Chloride Level 112 98-107 mmol/L Carbon Dioxide Level 28 21-32 mmol/L Anion Gap 3.0 3-11 mmol/L Blood Urea Nitrogen 15 7-18 mg/dl Creatinine 0.73 0.60-1.20 mg/dl Est Creatinine Clear Calc Drug Dose 55.6 ml/min Estimated GFR () 88.9 Estimated GFR (Non- 76.7 BUN/Creatinine Ratio 20.2 10-20 Random Glucose 87 70-99 mg/dl Calcium Level 9.2 8.5-10.1 mg/dl Magnesium Level 2.0 1.8-2.4 mg/dl
[2017-06-27 16:51] VITALS: BP_SYST 120; BP_SYST 137; BP_SYST 148; BP_DIAS 67; BP_DIAS 75; BP_DIAS 78; PULSE 52; TEMP 36.4; O2SAT 98
[2017-06-27] MEDS: ATORVASTATIN 20 MG TAB PO SCH (20:13)
[2017-06-27] MEDS: RISPERIDONE ODT 0.5MG PO PRN (20:15)
[2017-06-27] MEDS: ACETAMINOPHEN 325 MG TAB PO PRN (20:15)
[2017-06-27 20:24] VITALS: BP 115/63; PULSE 55; TEMP 36.8; O2SAT 97
[2017-06-28 00:03] VITALS: BP_SYST 87; BP_SYST 93; BP_SYST 97; BP_DIAS 53; BP_DIAS 54; BP_DIAS 56; PULSE 53; PULSE 64; TEMP 36.8; O2SAT 96
[2017-06-28 03:22] VITALS: BP 137/70; PULSE 59; TEMP 36.4; O2SAT 97
--- NOTE | 2017-06-28 08:49 | Progress Note ---
Internal Med Progress Note Date of Service: Jun 28, 2017. Provider Documentation: SUBJECTIVE: Seen and examined at bedside Patient was confused and agitated overnight per staff Patient has been refusing medications and treatment She is oriented but seemed to have hallucinations (Says noticing blood on floor and has distrust) Requested Psychiatry to re-evaluate today Also discussed with patient's daughter in detail Denies chest pain, SOB, dizziness, abd pain OBJECTIVE: Vital Signs-as noted below Physical Exam: General Appearance:Moderately built and nourished, no apparent distress Head: normocephalic, Atraumatic Eyes: normal inspection, EOMI, PERRL, Periorbital ecchymosis Neck: supple, Trachea midline Respiratory/Chest: Normal breath sounds, CTA Cardiovascular: S1, S2, No murmur Abdomen/GI:Soft, Non tender, Bowel sounds present Extremities/Musculoskelatal:normal inspection, Trace edema Neurologic/Psych:AAOX3, grossly no focal neurological deficits Skin: normal color, warm Lab data as noted below. ASSESSMENT & PLAN: Symptomatic Bradycardia: Sinus bradycardia in the 40s in ED. Metoprolol dose decreased from 25 mg BID to 6.25 mg BID TSH elevated, Normal Free T4, Needs repeat testing as outpatient Positive Orthostatics, Compression stockings monitor in Tele ECHO as below Altered Mental Status: multifactorial Underlying mild cognitive impairment: Dementia with delirium Encephalopathy secondary to UTI, Meds (diphenhydramine) Risperdal PRN Family concerned about hallucinations and possible dissociative disorder Appreciate Psychiatry Input Requested Psychiatry to re-evaluate given change in mental status again UTI Urine culture: growing Klebsiella, Strep continue ceftriaxone Day # 5/5 H/O multiple falls Chronic problem. Encouraged to utilize walker. PT / OT ordered CT head: No acute intracranial abnormality CAD H/O NSTEMI s/p PCI with stent. No anginal symptoms. Continue aspirin, reduced dose of metoprolol tartrate, and statin. HTN Continue lisinopril. monitor Dyslipidemia Continue atorvastatin. Depression: Continue escitalopram. DVT Px: No anticoagulants because of fall and head injury. SCD's. Ambulate with assistance. Code Status: DNR Disposition: Plan to discharge to [facility] under care of Dr. Pope when stable ECHO: * The left ventricular wall motion is normal. * There is mild concentric left ventricular hypertrophy. * Ejection Fraction = 60-65%. * The right ventricle is normal in size and function. * Aortic valve sclerosis mild, without significant aortic valvular stenosis. * There is mild mitral regurgitation. * Diastolic dysfunction, Grade II (pseudonormalization pattern). Vital Signs: Date Time Temp Pulse Resp B/P (MAP) Pulse Ox O2 Delivery O2 Flow Rate FiO2 06/28/17 04:00 Room Air 06/28/17 03:22 36.4 59 17 137/70 (92) 97 Room Air 06/28/17 00:03 36.8 53 18 93/53 (66) 96 Room Air 53 97/56 (70) 64 87/54 (65) 06/28/17 00:01 Room Air 06/27/17 20:24 36.8 55 16 115/63 (80) 97 Room Air 06/27/17 20:00 Room Air 06/27/17 16:51 36.4 52 16 148/75 (99) 98 Room Air 137/78 (97) 120/67 (84) 06/27/17 16:05 Room Air 06/27/17 12:00 36.6 52 20 156/76 (102) 99 Room Air 06/27/17 12:00 Room Air
[2017-06-28 10:23] VITALS: BP 128/80; PULSE 92; TEMP 36.4; O2SAT 99
[2017-06-28] MEDS: ASPIRIN 81 MG ECTAB PO SCH (10:24)
[2017-06-28] MEDS: ESCITALOPRAM OXALATE 10 MG TAB PO SCH (10:24)
[2017-06-28] MEDS: METOPROLOL TARTRATE 25 MG TAB PO SCH ×2 (10:24→20:32)
[2017-06-28] MEDS: LISINOPRIL 5 MG TAB PO SCH (10:24)
[2017-06-28] MEDS: ARTIFICIAL TEARS OP SOLN OPB SCH ×2 (10:24→20:33)
--- NOTE | 2017-06-28 10:38 | Psychiatric Progress Notes ---
Progress Note Date of Service Jun 28, 2017. Interval History 82 yo female with mild cognitive impairment at baseline admit with AMS (UTI, delirium), hx of fall, patient has been increasingly depressed following of and family concerned that relatively recent onset dunham were worse on higher doses of Lexapro. Chief Complaint "I don't feel safe here, I don't know what they are trying to do". Subjective Dr. Womack concerned about refusal of meds today. Patient continues with 1-on- 1, doesn't 100% believe she is in the hospital. She is somewhat disorganized referring to aud dunham of husbands voice and liking that he is "still with her", mainly hears rustling of sheets like someone is getting out of bed over night. She doesn't understand why anyone would "want to live like this" but denies active thoughts to harm self. Ate breakfast. Review of Systems patient is uncooperative with ROS Mental Status Exam During interview pt is: guarded, other (Oriented to place, location but not to year day or date) Appearance: appropriately groomed Eye contact is: good Motor behavior is: no abnormal motor movements Speech: normal in rate, rhythm & volume Affect: blunted Mood is: depressed, anxious Thought process: circumstantial Thought content: delusions (believes hospital staff want to do her harm in some way) Suicidal thought are: denied Homicidal thoughts are: denied Hallucinations: auditory, denies visual Cognition: language grossly intact Intelligence estimated to be: average Insight: impaired Judgement: impaired Impression 82-year-old woman admitted to the hospital with confusion in the setting of a UTI and recent falls with diagnosis of cognitive disorder. There is however felt to be a component to her recent presentation and rapid decline associated with depression, apparently with psychotic features even outside of her delirium. The psychotic features can also be multifactorial but given current MSE and care non-compliance I think it's most appropriate to attempt to treat her depression more aggressively, concern now is that she won't take medications consistently. Plan (1) Major depressive disorder with psychotic features unclear if Lexapro has/hasn't been helpful/tolerated--will continue for now and many other factors related to her med clearance elevated TSH can be contributing likely needs Risperdal standing order, possibly antipsychotic over objection if fails to clear liaison to communicate with family around likely benefit of inpatient geripsych admit, determines on MSE when medically cleared, would need to be on 302 (2) Delirium superimposed on dementia 06/26 - Will change haldol to risperdal prn - Encourage nursing to utilize delirium/dementia protocols Data Vital Signs Last 24 Hrs: Date Time Temp Pulse Resp B/P (MAP) Pulse Ox O2 Delivery O2 Flow Rate FiO2 06/28/17 10:23 36.4 92 16 128/80 (96) 99 Room Air 06/28/17 04:00 Room Air 06/28/17 03:22 36.4 59 17 137/70 (92) 97 Room Air 06/28/17 00:03 36.8 53 18 93/53 (66) 96 Room Air 53 97/56 (70) 64 87/54 (65) 06/28/17 00:01 Room Air 06/27/17 20:24 36.8 55 16 115/63 (80) 97 Room Air 06/27/17 20:00 Room Air 06/27/17 16:51 36.4 52 16 148/75 (99) 98 Room Air 137/78 (97) 120/67 (84) 06/27/17 16:05 Room Air 06/27/17 12:00 36.6 52 20 156/76 (102) 99 Room Air 06/27/17 12:00 Room Air Meds Administered Last 24 Hrs: Meds Administered (Past 24Hrs) Medications (Trade) Dose Ordered Sig/Génesis Route Start Time Stop Time Status Last Admin Dose Admin Risperidone (Risperdal M Tab) 0.5 mg Q6H PRN PO 06/26/17 15:00 07/26/17 14:59 06/27/17 20:15 0.5 MG Metoprolol Tartrate (Lopressor Tab) 6.25 mg BID PO 06/27/17 21:00 07/25/17 08:59 06/28/17 10:24 6.25 MG
[2017-06-28] MEDS: CEFTRIAXONE SOD INJ 1 GM in DEXTROSE 5% ADD-VANTAGE 50ML 50 ML IV SCH (12:07)
[2017-06-28] MEDS: RISPERIDONE ODT 0.5MG PO PRN (12:07)
--- NOTE | 2017-06-28 12:13 | Psychiatric Progress Notes ---
Psychiatric Progress Note Date of Service Jun 28, 2017. Notes patient has since taken am meds with support of family. On further hx gathering by liaison, family notes longstanding distrust of hospital staff following an incident several years ago at an outside facility. They do support use of standing order Risperdal for paranoia, aud dunham and behavioral disturbance and would prefer to get her back to her familiar environment rather than transferring to a [facility], assuming stable to that level of care. Will order Risperdal M tab 0.5 mg BID. Avoid anticholinergics. Tolerated Haldol without evidence of dystonia. Antipsychotic use would hopefully be short term as family notes recurs in context of hospitalizations.
[2017-06-28 15:22] VITALS: BP_SYST 112; BP_SYST 130; BP_SYST 136; BP_DIAS 70; BP_DIAS 80; BP_DIAS 84; PULSE 61; PULSE 65; PULSE 72; TEMP 36.9; O2SAT 98
[2017-06-28 20:29] VITALS: BP 116/75; PULSE 78; TEMP 37.1; O2SAT 96
[2017-06-28] MEDS: ATORVASTATIN 20 MG TAB PO SCH (20:31)
[2017-06-28] MEDS ORDERED: RISPERIDONE ODT 0.5MG PO SCH (21:00)
[2017-06-28 23:45] VITALS: BP 93/58; PULSE 58; TEMP 36.5; O2SAT 95
[2017-06-29 04:15] VITALS: BP 104/65; PULSE 58; TEMP 36.3; O2SAT 96
[2017-06-29 07:46] VITALS: BP 127/81; PULSE 61; TEMP 36.6; O2SAT 96
[2017-06-29 07:56] LABS: HEMOGLOBIN 12.4 g/dL (12.0-16.0); MEAN CELL VOLUME 91.1 fL (80-100); MEAN CORPUSCULAR HEMOGLOBIN 30.5 pg (25-34); MEAN CORPUSCULAR HGB CONC 33.5 g/dl (32-36); MEAN PLATELET VOLUME 9.3 fL (7.4-10.4); PLATELET COUNT 211 K/uL (130-400); RED CELL DISTRIBUTION WIDTH CV 13.1 % (11.5-14.5); RED CELL DISTRIBUTION WIDTH SD 43.7 fL (36.4-46.3); WHITE BLOOD COUNT 6.03 K/uL (4.8-10.8)
[2017-06-29 08:23] LABS: CALCIUM 9.4 mg/dl (8.5-10.1); CREATININE 0.83 mg/dl (0.60-1.20); POTASSIUM 3.9 mmol/L (3.5-5.1)
--- NOTE | 2017-06-29 08:35 | Psychiatric Progress Notes ---
Psychiatric Progress Note Date of Service Jun 29, 2017. Notes reviewed response to Risperdal. No aggression charted overnight, slept, did not require prn Haldol. She did have some sedation with Risperdal 0.5 mg, largely because of prn dosing. Will adjust am dose of Risperdal down to 0.25 mg po qhs, 0.5 mg hs for now. Monitor prn use. Hopefully prn Haldol can be discontinued soon.
--- NOTE | 2017-06-29 08:50 | Progress Note ---
Internal Med Progress Note Date of Service: Jun 29, 2017. Provider Documentation: SUBJECTIVE: Seen and examined at bedside Feels depressed, admits to having hallucinations Tearful during my encounter No agitated overnight per staff Denies chest pain, SOB, dizziness, abd pain No family at bedside OBJECTIVE: Vital Signs-as noted below Physical Exam: General Appearance:Moderately built and nourished, no apparent distress Head: normocephalic, Atraumatic Eyes: normal inspection, EOMI, PERRL, Periorbital ecchymosis Neck: supple, Trachea midline Respiratory/Chest: Normal breath sounds, CTA Cardiovascular: S1, S2, No murmur Abdomen/GI:Soft, Non tender, Bowel sounds present Extremities/Musculoskelatal:normal inspection, Trace edema Neurologic/Psych:AAOX3, grossly no focal neurological deficits Skin: normal color, warm Lab data as noted below. ASSESSMENT & PLAN: Symptomatic Bradycardia: Improved Sinus bradycardia in the 40s in ED. Metoprolol dose decreased from 25 mg BID to 6.25 mg BID TSH elevated, Normal Free T4, Needs repeat testing as outpatient Positive Orthostatics, Compression stockings monitor in Tele ECHO as below Altered Mental Status: multifactorial [place] Depression with Psychotic features, Dementia with delirium Encephalopathy secondary to UTI, Meds (diphenhydramine) Risperdal as per Psychiatry Appreciate Psychiatry Input Continue Lexapro UTI Urine culture: growing Klebsiella, Strep To complete IV ceftriaxone today H/O multiple falls Chronic problem. Encouraged to utilize walker. PT / OT ordered CT head: No acute intracranial abnormality CAD H/O NSTEMI s/p PCI with stent. No anginal symptoms. Continue aspirin, reduced dose of metoprolol tartrate, and statin. HTN Continue lisinopril. monitor Dyslipidemia Continue atorvastatin. Depression: Continue escitalopram. DVT Px: No anticoagulants because of fall and head injury. SCD's. Ambulate with assistance. Code Status: DNR Disposition: To be determined Plan to discharge to [facility] under care of Dr. Pope when stable Vs Psych Inpatient ECHO: * The left ventricular wall motion is normal. * There is mild concentric left ventricular hypertrophy. * Ejection Fraction = 60-65%. * The right ventricle is normal in size and function. * Aortic valve sclerosis mild, without significant aortic valvular stenosis. * There is mild mitral regurgitation. * Diastolic dysfunction, Grade II (pseudonormalization pattern). Vital Signs: Date Time Temp Pulse Resp B/P (MAP) Pulse Ox O2 Delivery O2 Flow Rate FiO2 06/29/17 07:46 36.6 61 14 127/81 (96) 96 Room Air 06/29/17 04:15 36.3 58 16 104/65 (78) 96 Room Air 06/29/17 04:00 Room Air 06/29/17 00:01 Room Air 06/28/17 23:45 36.5 58 16 93/58 (70) 95 Room Air 06/28/17 20:29 37.1 78 16 116/75 (89) 96 Room Air 06/28/17 20:00 Room Air 06/28/17 16:00 Room Air 06/28/17 15:22 36.9 61 20 136/80 (98) 98 Room Air 65 130/84 (99) 72 112/70 (84) 06/28/17 12:00 Room Air 06/28/17 10:30 Room Air 06/28/17 10:23 36.4 92 16 128/80 (96) 99 Room Air Lab Results: Results Past 24 Hours Test 06/29/17 07:34 Range/Units White Blood Count 6.03 4.8-10.8 K/uL Red Blood Count 4.06 4.2-5.4 M/uL Hemoglobin 12.4 12.0-16.0 g/dL Hematocrit 37.0 37-47 % Mean Corpuscular Volume 91.1 80-100 fL Mean Corpuscular Hemoglobin 30.5 25-34 pg Mean Corpuscular Hemoglobin Concent 33.5 32-36 g/dl RDW Standard Deviation 43.7 36.4-46.3 fL RDW Coefficient of Variation 13.1 11.5-14.5 % Platelet Count 211 130-400 K/uL Mean Platelet Volume 9.3 7.4-10.4 fL Sodium Level 138 136-145 mmol/L Potassium Level 3.9 3.5-5.1 mmol/L Chloride Level 104 98-107 mmol/L Carbon Dioxide Level 28 21-32 mmol/L Anion Gap 5.0 3-11 mmol/L Blood Urea Nitrogen 18 7-18 mg/dl Creatinine 0.83 0.60-1.20 mg/dl Est Creatinine Clear Calc Drug Dose 48.9 ml/min Estimated GFR () 76.1 Estimated GFR (Non- 65.7 BUN/Creatinine Ratio 21.4 10-20 Random Glucose 89 70-99 mg/dl Calcium Level 9.4 8.5-10.1 mg/dl
[2017-06-29] MEDS: ARTIFICIAL TEARS OP SOLN OPB SCH ×3 (09:00→21:06)
[2017-06-29] MEDS: ASPIRIN 81 MG ECTAB PO SCH (10:35)
[2017-06-29] MEDS: ESCITALOPRAM OXALATE 10 MG TAB PO SCH (10:36)
[2017-06-29] MEDS: LISINOPRIL 5 MG TAB PO SCH (10:36)
[2017-06-29] MEDS: METOPROLOL TARTRATE 25 MG TAB PO SCH ×3 (10:36→21:05)
[2017-06-29] MEDS: RISPERIDONE ODT 0.5MG PO SCH ×3 (10:36→21:05)
[2017-06-29 11:53] VITALS: BP 146/80; PULSE 62; TEMP 36.4; O2SAT 98
[2017-06-29 15:42] VITALS: BP 151/76; PULSE 68; TEMP 37.3; O2SAT 96
[2017-06-29 19:18] VITALS: BP 145/74; PULSE 75; TEMP 37.4; O2SAT 96
[2017-06-29] MEDS: ATORVASTATIN 20 MG TAB PO SCH ×2 (21:00→21:05)
[2017-06-29 23:30] VITALS: BP 127/70; PULSE 81; TEMP 37; O2SAT 95
[2017-06-30] VITALS (9 sets, daily range): BP systolic 96–151; BP diastolic 59–90; PULSE 65–122; TEMP 36.5–38.1; O2SAT 95–98
[2017-06-30] MEDS ORDERED: METOPROLOL TARTRATE 1 MG/ML VIAL IV STA (05:34)
[2017-06-30] MEDS ORDERED: METOPROLOL TARTRATE 1 MG/ML VIAL ONE (05:38)
[2017-06-30] MEDS ORDERED: POTASSIUM CHLR 10 MEQ / WTR 10 MEQ in PREMIXED WATER 100 ML IV ONE (06:00)
[2017-06-30] MEDS: RISPERIDONE ODT 0.5MG PO SCH ×2 (07:50→20:10)
[2017-06-30] MEDS: ASPIRIN 81 MG ECTAB PO SCH (07:50)
[2017-06-30] MEDS: ARTIFICIAL TEARS OP SOLN OPB SCH ×2 (07:50→20:09)
[2017-06-30] MEDS: LISINOPRIL 5 MG TAB PO SCH (07:50)
[2017-06-30] MEDS: ESCITALOPRAM OXALATE 10 MG TAB PO SCH (07:51)
[2017-06-30] MEDS: METOPROLOL TARTRATE 25 MG TAB PO SCH ×2 (07:51→20:09)
--- NOTE | 2017-06-30 08:55 | Progress Note ---
Internal Med Progress Note Date of Service: Jun 30, 2017. Provider Documentation: SUBJECTIVE: Seen and examined at bedside Feels very tired and has intermittent dizziness Refused meds overnight and went into Sinus Tachycardia Admits to have hallucinations on and off Took her meds this morning Denies chest pain, SOB, abd pain No family at bedside OBJECTIVE: Vital Signs-as noted below Physical Exam: General Appearance:Moderately built and nourished, no apparent distress Head: normocephalic, Atraumatic Eyes: normal inspection, EOMI, PERRL, Periorbital ecchymosis Neck: supple, Trachea midline Respiratory/Chest: Normal breath sounds, CTA Cardiovascular: S1, S2, No murmur Abdomen/GI:Soft, Non tender, Bowel sounds present Extremities/Musculoskelatal:normal inspection, Trace edema Neurologic/Psych:AAOX3, grossly no focal neurological deficits Skin: normal color, warm Lab data as noted below. ASSESSMENT & PLAN: Symptomatic Bradycardia: Improved Sinus bradycardia in the 40s in ED. Metoprolol dose decreased from 25 mg BID to 6.25 mg BID Has been refusing meds on and off and goes to sinus Tachycardia as a result TSH elevated, Normal Free T4, Needs repeat testing as outpatient Positive Orthostatics, Compression stockings monitor in Tele ECHO as below Altered Mental Status: multifactorial Ma[place] Depression with Psychotic features, Dementia with delirium Encephalopathy secondary to UTI, Meds (diphenhydramine) Risperdal as per Psychiatry Appreciate Psychiatry Input Continue Lexapro UTI Urine culture: growing Klebsiella, Strep completed ceftriaxone course H/O multiple falls Chronic problem. Encouraged to utilize walker. PT / OT ordered CT head: No acute intracranial abnormality CAD H/O NSTEMI s/p PCI with stent. No anginal symptoms. Continue aspirin, reduced dose of metoprolol tartrate, and statin. recheck EKG, troponin today HTN Continue lisinopril. monitor Dyslipidemia Continue atorvastatin. Depression: Continue escitalopram. DVT Px: No anticoagulants because of fall and head injury. SCD's. Ambulate with assistance. Code Status: DNR Disposition: To be determined Plan to discharge to [facility] under care of Dr. Pope when stable Vs Psych Inpatient ECHO: * The left ventricular wall motion is normal. * There is mild concentric left ventricular hypertrophy. * Ejection Fraction = 60-65%. * The right ventricle is normal in size and function. * Aortic valve sclerosis mild, without significant aortic valvular stenosis. * There is mild mitral regurgitation. * Diastolic dysfunction, Grade II (pseudonormalization pattern). Vital Signs: Date Time Temp Pulse Resp B/P (MAP) Pulse Ox O2 Delivery O2 Flow Rate FiO2 06/30/17 08:03 Room Air 06/30/17 07:35 37.1 67 18 122/70 (87) 95 Room Air 133/76 (95) 113/71 (85) 06/30/17 05:43 138 151/90 06/30/17 04:00 Room Air 06/30/17 03:50 122 20 151/90 (110) 97 Room Air 06/30/17 00:00 Room Air 06/29/17 23:30 37.0 81 18 127/70 (89) 95 Room Air 06/29/17 20:00 Room Air 06/29/17 19:18 37.4 75 18 145/74 (97) 96 Room Air 06/29/17 16:04 Room Air 06/29/17 16:00 Room Air 06/29/17 15:42 37.3 68 16 151/76 (101) 96 Room Air 06/29/17 12:00 Room Air 06/29/17 12:00 Room Air 06/29/17 11:53 36.4 62 16 146/80 (102) 98 Room Air Lab Results: Results Past 24 Hours Test 06/30/17 08:35 06/30/17 08:44 Range/Units Magnesium Level 2.1 1.8-2.4 mg/dl
--- NOTE | 2017-06-30 13:14 | Psychiatric Progress Notes ---
Psychiatric Progress Note Date of Service Jun 30, 2017. Notes ID: Patient reviewed with liaison nurse. Reviewed previous reports documented on patient. 82-year-old female admitted medically due to recent falls, UTI, and ongoing diagnosis of a cognitive disorder. Psychiatric consultation requested for hallucinations, aggressive behavior, and possible dissociative disorder. CC: "I'm just not in tune with her...my granddaughter...Bernadine." HPI: Zhanna Pérez is a 82-year-old female admitted to the medical floor for AMS and bradycardia as well as a fall sustained while at her residence at the [facility]. Pt was seen today on psychiatric consult service for follow-up on hallucinations and aggressive behavior. Pt seen today while resting in bed. Pt was able to be aroused by verbal stimuli to participate in interview. Pt appears tired, but not lethargic during encounter. Pt difficult to converse with due to level of confusion and soft speech. Pt spends most of visit expressing concern about her granddaughter, "Bernadine". Pt is nonsensical and tangential, but does not appear to be actively hallucinating during time of encounter. Pt remains in good behavioral control for duration of interview. Pt is alert and oriented to person only, as she believes she is in [place] and the day of the week is "triangle". She is, however, aware that it is June. Pt expresses a great deal of distress about "how do I help her" referring to her granddaughter. Unable to fully assess mood, anxiety, and other psychiatric symptoms as patient is hyper-focused on this topic. Appears to be responding well to current dose of Risperdal. She denies any needs or concerns at today's encounter. ROS: Psych: denies symptoms other than stated above Constitutional: no constitutional complaints Cardiovascular: no cardiovascular complaints GI: no GI complaints Neurologic: no neurologic complaints Remainder of 10 body systems also reviewed and denied other than noted above. Last 24 Hours Test 06/30/17 08:35 06/30/17 10:17 Magnesium Level 2.1 mg/dl Troponin I 0.034 ng/ml Medications given in last 24-hours Medications (Trade) Dose Ordered Sig/Génesis Route Start Time Stop Time Status Last Admin Dose Admin Potassium Chloride 10 meq/ Prmx 100 ml @ 100 mls/hr NOW ONCE IV 06/30/17 06:00 06/30/17 06:59 DC 06/30/17 06:15 100 MLS/HR Metoprolol Tartrate (Lopressor Iv) 5 mg STK-MED ONCE .ROUTE 06/30/17 05:38 06/30/17 05:39 DC 06/30/17 05:43 2.5 MG MSE: The patient presented as mildly sedated, but improved over course of interview. Oriented to person only. The patient was dressed in hospital gown. Eye contact was poor. No psychomotor restlessness or agitation was noted. Speech was normal in rate, rhythm, and volume. Affect was mood congruent. The patients mood appeared blunted. Thought processes were clear, coherent and goal directed without evidence of loose associations or flight of ideas. Thought content/perception was reality based without delusions. The patient denied suicidal and homicidal ideation. The patient denied hallucinations and did not appear to be responding to internal stimuli. Cognition was grossly intact with orientation to person, place and time. Has reported baseline mild cognitive dysfunction. Insight and Judgement were limited. Vital Signs - Last 24-hours Date Time Temp Pulse Resp B/P (MAP) Pulse Ox O2 Delivery O2 Flow Rate FiO2 06/30/17 12:00 96 Room Air 06/30/17 11:56 36.5 67 18 96/59 (71) 96 Room Air 06/30/17 08:03 Room Air 06/30/17 07:35 37.1 67 18 122/70 (87) 95 Room Air 133/76 (95) 113/71 (85) 06/30/17 05:43 138 151/90 06/30/17 04:00 Room Air 06/30/17 03:50 122 20 151/90 (110) 97 Room Air 06/30/17 00:00 Room Air 06/29/17 23:30 37.0 81 18 127/70 (89) 95 Room Air 06/29/17 20:00 Room Air 06/29/17 19:18 37.4 75 18 145/74 (97) 96 Room Air 06/29/17 16:04 Room Air 06/29/17 16:00 Room Air 06/29/17 15:42 37.3 68 16 151/76 (101) 96 Room Air Imp: Previous recommendation by following psychiatrist was for referral geriatric psychiatry facility. Family felt it would benefit the patient to return to a familiar environment once stable. At this time, the patient appears psychiatrically stable to return to her SNF, if this remains to be the patient's and family's wishes at this time. Pt is not combative or agitated at time of interview and appears to be responding well to Risperdal M tab 0.25mg qAM and 0.5mg qHS. Previous reports state the patient's hallucinations occur in the context of hospitalizations. Would recommend discontinuation of Risperdal once patient returns to psychiatric baseline with regard to paranoia and behavioral disturbance. Plan: - Continue Risperdal M tab 0.25mg qAM and 0.5mg qHS - At this time, plan for discharge to SNF once medically cleared; appears psychiatrically and behaviorally appropriate for this transfer - Recommendation for geriatric psych facility; however family and patient are in agreement against this at this time - Discharge when deemed medically stable by primary medical team Dr. Peoples has personally been involved in the review of the above case and development of recommendations.
[2017-06-30] MEDS: ATORVASTATIN 20 MG TAB PO SCH (20:09)
[2017-07-01 03:33] VITALS: BP 116/69; PULSE 76; TEMP 37.4; O2SAT 95
[2017-07-01] MEDS: ESCITALOPRAM OXALATE 10 MG TAB PO SCH (07:32)
[2017-07-01] MEDS: ASPIRIN 81 MG ECTAB PO SCH (07:32)
[2017-07-01] MEDS: LISINOPRIL 5 MG TAB PO SCH (07:32)
[2017-07-01] MEDS: RISPERIDONE ODT 0.5MG PO SCH (07:33)
[2017-07-01] MEDS: METOPROLOL TARTRATE 25 MG TAB PO SCH (07:33)
[2017-07-01] MEDS: ARTIFICIAL TEARS OP SOLN OPB SCH (07:35)
[2017-07-01 07:43] VITALS: BP 120/71; PULSE 77; TEMP 36.6; O2SAT 95
[2017-07-01 08:07] LABS: HEMATOCRIT 36.6 % (37-47); HEMOGLOBIN 12.3 g/dL (12.0-16.0); MEAN CELL VOLUME 90.6 fL (80-100); MEAN CORPUSCULAR HEMOGLOBIN 30.4 pg (25-34); MEAN CORPUSCULAR HGB CONC 33.6 g/dl (32-36); MEAN PLATELET VOLUME 9.5 fL (7.4-10.4); PLATELET COUNT 203 K/uL (130-400); RED CELL DISTRIBUTION WIDTH SD 42.9 fL (36.4-46.3); WHITE BLOOD COUNT 7.83 K/uL (4.8-10.8)
[2017-07-01 08:47] LABS: BLOOD UREA NITROGEN 20 mg/dl (7-18); CALCIUM 9.4 mg/dl (8.5-10.1); CARBON DIOXIDE 23 mmol/L (21-32); CREATININE 0.67 mg/dl (0.60-1.20); GLUCOSE 88 mg/dl (70-99); POTASSIUM 3.6 mmol/L (3.5-5.1); SODIUM 137 mmol/L (136-145)
[2017-07-01 11:54] VITALS: BP 94/59; PULSE 75; TEMP 36.7; O2SAT 93
--- NOTE | 2017-07-01 12:30 | Progress Note ---
Internal Med Progress Note Date of Service: Jul 01, 2017. Provider Documentation: SUBJECTIVE: Seen and examined at bedside Reports intermittent dizziness more alert, awake and seemed to be comfortable today Daughter at bedside Denies chest pain, SOB, abd pain "I feel more comfortable today" No other complaints OBJECTIVE: Vital Signs-as noted below Physical Exam: General Appearance:Moderately built and nourished, no apparent distress Head: normocephalic, Atraumatic Eyes: normal inspection, EOMI, PERRL, Periorbital ecchymosis Neck: supple, Trachea midline Respiratory/Chest: Normal breath sounds, CTA Cardiovascular: S1, S2, No murmur Abdomen/GI:Soft, Non tender, Bowel sounds present Extremities/Musculoskelatal:normal inspection, Trace edema Neurologic/Psych:AAOX3, grossly no focal neurological deficits Skin: normal color, warm Lab data as noted below. ASSESSMENT & PLAN: Symptomatic Bradycardia: Improved Sinus bradycardia in the 40s in ED. Metoprolol dose decreased from 12.5mg daily Has been refusing meds on and off and goes to sinus Tachycardia as a result TSH elevated, Normal Free T4, Needs repeat testing as outpatient Positive Orthostatics, Compression stockings monitor in Tele ECHO as below EKG: non specific EKG changes Negative Cardiac enzymes Appreciate Cardiology Input Altered Mental Status: multifactorial Major Depression with Psychotic features, Dementia with delirium Encephalopathy secondary to UTI, Meds (diphenhydramine) Risperdal as per Psychiatry Appreciate Psychiatry Input Continue Lexapro Discussed with Psychiatry today: 07/01/17. Plan to discharge on current meds and follow up with her psychiatrist as outpatient UTI Urine culture: growing Klebsiella, Strep completed ceftriaxone course H/O multiple falls Chronic problem. Encouraged to utilize walker. PT / OT ordered CT head: No acute intracranial abnormality CAD H/O NSTEMI s/p PCI with stent. No anginal symptoms. Continue aspirin, reduced dose of metoprolol tartrate, and statin. HTN Continue lisinopril. monitor Dyslipidemia Continue atorvastatin. Depression: Continue escitalopram. DVT Px: No anticoagulants because of fall and head injury. SCD's. Ambulate with assistance. Code Status: DNR Disposition: Plan to discharge to [facility] under care of Dr. Pope today Follow up with in 1 week as advised Follow up with your Psychiatrist at [facility] on 07/27/17 as scheduled Follow up with your Client Experience Administrator on July 21, 2017 at 1:45pm Seek immediate medical attention if your symptoms reoccur or worsen ECHO: * The left ventricular wall motion is normal. * There is mild concentric left ventricular hypertrophy. * Ejection Fraction = 60-65%. * The right ventricle is normal in size and function. * Aortic valve sclerosis mild, without significant aortic valvular stenosis. * There is mild mitral regurgitation. * Diastolic dysfunction, Grade II (pseudonormalization pattern). Vital Signs: Date Time Temp Pulse Resp B/P (MAP) Pulse Ox O2 Delivery O2 Flow Rate FiO2 07/01/17 13:08 36.7 75 18 93 Room Air 07/01/17 12:00 Room Air 07/01/17 11:54 36.7 75 18 94/59 (71) 93 Room Air 07/01/17 08:00 Room Air 07/01/17 07:43 36.6 77 18 120/71 (87) 95 Room Air 07/01/17 04:00 Room Air 07/01/17 03:33 37.4 76 18 116/69 (85) 95 Room Air 07/01/17 00:00 Room Air 06/30/17 23:33 37.1 65 20 101/61 (74) 96 Room Air 06/30/17 20:00 Room Air 06/30/17 19:39 36.8 70 16 129/70 (89) 96 Room Air 06/30/17 17:09 36.8 06/30/17 15:58 38.1 75 16 117/69 (85) 98 Room Air 06/30/17 15:46 96 Room Air Lab Results: Results Past 24 Hours Test 07/01/17 07:02 Range/Units White Blood Count 7.83 4.8-10.8 K/uL Red Blood Count 4.04 4.2-5.4 M/uL Hemoglobin 12.3 12.0-16.0 g/dL Hematocrit 36.6 37-47 % Mean Corpuscular Volume 90.6 80-100 fL Mean Corpuscular Hemoglobin 30.4 25-34 pg Mean Corpuscular Hemoglobin Concent 33.6 32-36 g/dl RDW Standard Deviation 42.9 36.4-46.3 fL RDW Coefficient of Variation 13.0 11.5-14.5 % Platelet Count 203 130-400 K/uL Mean Platelet Volume 9.5 7.4-10.4 fL Sodium Level 137 136-145 mmol/L Potassium Level 3.6 3.5-5.1 mmol/L Chloride Level 105 98-107 mmol/L Carbon Dioxide Level 23 21-32 mmol/L Anion Gap 9.0 3-11 mmol/L Blood Urea Nitrogen 20 7-18 mg/dl Creatinine 0.67 0.60-1.20 mg/dl Est Creatinine Clear Calc Drug Dose 60.6 ml/min Estimated GFR () 94.9 Estimated GFR (Non- 81.9 BUN/Creatinine Ratio 29.9 10-20 Random Glucose 88 70-99 mg/dl Calcium Level 9.4 8.5-10.1 mg/dl Magnesium Level 2.2 1.8-2.4 mg/dl Troponin I < 0.015 0-0.045 ng/ml
[2017-07-01] MEDS ORDERED: METOPROLOL SUCC 25MG EXT REL TAB PO ONE (12:48)
[2017-07-01 13:08] VITALS: BP 94/59; PULSE 75; TEMP 36.7; O2SAT 93
--- NOTE | 2017-07-01 13:35 | CARDIOLOGY CONSULTATION ---
DATE OF CONSULTATION: 07/01/2017 REASON FOR CONSULTATION: Abnormal ECG. REFERRING PHYSICIAN: Dr. Edson Womack. CHIEF COMPLAINT ON ADMISSION: Confusion on 06/24/2017. HISTORY OF PRESENT ILLNESS: Ms. Pérez is an 82-year-old female who is a resident of [facility] and follows with Dr. Pope. Previously followed with [facility] in [place] due to a history of coronary artery disease, prior RCA stenting with both bare metal and drug-eluting stent at [facility] to the RCA. The patient suffered a non-STEMI in 2014, which was managed conservatively. Most recent stress test performed in August of 2015 demonstrated apical infarct with lucas-infarct ischemia. This was also managed medically. The patient admitted with confusion and recent fall. Noted have a urinary tract infection. She was found to be markedly bradycardic initially on admission received 0.5 mg of atropine. She was taking Lopressor 25 mg every 12 hours as an outpatient. This has been reduced to 6.25 mg. The patient has intermittently refused her medications due to underlying dementia. She seems to have decompensated somewhat from a mental standpoint. Her daughter is present at bedside. The patient unable to offer any reliable history. She denies any chest discomfort or shortness of breath. Telemetry demonstrates sinus rhythm with a heart rate of approximately 70-80 beats per minute. The patient offers no other complaints at this time. REVIEW OF SYSTEMS: Pertinent positives noted above. Remaining comprehensive 10 system review could not be accurately determined due to the patient's underlying dementia. She is an extremely poor historian. PAST MEDICAL HISTORY: 1. NSTEMI - Spring 2014, manage conservatively. 2. RCA stenting x2 with a Taxus and bare metal stent - unknown year. 3. Hypertension. 4. Dyslipidemia. 5. Dementia. 6. GERD. 7. Diverticulosis. 8. Hypothyroidism. PAST SURGICAL HISTORY: 1. Appendectomy. 2. Stent placement x2. 3. Hysterectomy. 4. Tonsillectomy. FAMILY HISTORY: Negative for premature CAD or sudden cardiac ; however, noncontributory given patient's advanced age. SOCIAL HISTORY: Lifelong nonsmoker. She is and lives at [facility]. ALLERGIES: ACETAMINOPHEN, CIPROFLOXACIN, HYDROCODONE, LATEX, MAGNESIUM, SULFA, SULFAMETOXAZOL/TRIMETOPRIMA, TETANUS TOXOID. HOME MEDICATIONS: 1. Aspirin 81 mg daily. 2. Atorvastatin 20 mg daily. 3. Lexapro 10 mg daily. 4. Lisinopril 5 mg daily. 5. Lutein 20 mg daily. 6. Lopressor 25 mg twice daily. 7. Systane 1 drop twice daily. 8. Tylenol as needed. 9. Benadryl as needed. 10. Sublingual nitro as needed. CURRENT MEDICATIONS: Include Risperdal, metoprolol at 6.25 mg twice daily, Haldol, aspirin, lisinopril, atorvastatin, sublingual nitro as needed, and as-needed Tylenol. DATA: ECG on admission demonstrates marked sinus bradycardia at a rate of 47 beats per minute. ECG performed on June 30 at 05:13 a.m. demonstrates sinus tachycardia with anterolateral ST depression suggesting ischemia. Repeat ECG performed this afternoon demonstrates sinus rhythm with diffuse nonspecific T-wave abnormality. LABORATORY DATA: Cardiac enzymes are negative x3 sets during admission. Most recent troponin negative, less than 0.015 this morning. Sodium is 137, potassium 3.6, chloride 105, CO2 is 23, BUN is 20, creatinine 0.67. White blood cell count 7.83, hemoglobin is 12.3, platelet count is 203. PHYSICAL EXAMINATION: VITAL SIGNS: Temperature is 36.6 degrees centigrade, pulse 75 beats per minute and regular, respiratory rate is 18 breaths per minute, blood pressure 120/70 and SAO2 is 93% on room air. GENERAL: NAD, awake, alert and oriented x3. HEENT: There is diffuse periorbital ecchymosis. NECK: Supple without JVD or HJR. No carotid bruit. HEART: Regular with a normal S1, S2, no murmur, rub or gallop heard. LUNGS: Clear. There are no rales, rhonchi or wheeze. ABDOMEN: Soft, nontender. No rebound or guarding. Normal bowel sounds. EXTREMITIES: Warm and dry. There is no clubbing, cyanosis, or edema. NEUROLOGIC: Demonstrates no focal motor deficit. FINAL IMPRESSION: 1. An 82-year-old female with history of chronic coronary artery disease, prior right coronary artery stenting, as well as medically manage non-ST elevation myocardial infarction in 2014. She had an electrocardiogram performed during sinus tachycardia demonstrating ischemic changes without associated anginal symptoms. The patient is a poor historian, however, denies any exertional anginal symptoms, recently. Her cardiac enzymes are not significantly elevated. Due underlying dementia, overall conservative management is recommended. 2. Symptomatic bradycardia status post atropine and subsequent reduction beta-ayaan dosing. 3. Hypertension, controlled. 4. Dyslipidemia. 5. Recent fall. 6. Symptomatic bradycardia with subsequent reduction of beta-ayaan dosing. 7. Urinary tract infection. PLAN AND RECOMMENDATIONS: Recommend transitioning current dose of metoprolol to Toprol-XL 12.5 mg once daily. Continue aspirin and statin therapy. Appropriate use of sublingual nitroglycerin recommended. Overall, I would recommend a conservative medical management approach as patient appears to have significant underlying dementia. At present, patient is without anginal symptoms. I would not recommend further inpatient testing at this time. I will arrange for outpatient cardiology followup in the next 2 weeks. All questions answered to the satisfaction of the patient's daughter. Thank you for allowing me to participate in the care of your patient.
[2017-07-01] MEDS ORDERED: TPRSR25 PO (13:51)
[2017-07-01] MEDS ORDERED: RSPODT5 PO ×2 (13:51)
--- NOTE | 2017-07-01 13:56 | Discharge Summary ---
Discharge Summary Date of Service Jul 01, 2017. Discharge Summary Admission Date: Jun 24, 2017 at 17:01 Discharge Date: Jul 01, 2017 Discharge Disposition: Personal care Principal Diagnosis: Symptomatic bradycardia, UTI, Major Depression with Psychotic features Procedures: CT head: There is no hemorrhage, mass effect, or evidence of acute territorial ischemia by CT criteria. No significant change from yesterday. ECHO: * The left ventricular wall motion is normal. * There is mild concentric left ventricular hypertrophy. * The LV Ejection Fraction = 60-65%. * The right ventricle is normal in size and function. * Aortic valve sclerosis mild, without significant aortic valvular stenosis. * There is mild mitral regurgitation. * Diastolic dysfunction, Grade II (pseudonormalization pattern). Consultations: Cardiology, Psychiatry Pending Studies/Follow-Up: Follow up with in 1 week as advised Follow up with your Psychiatrist at [facility] on 07/27/17 as scheduled Follow up with your Reel Cart Operator on July 21, 2017 at 1:45pm Seek immediate medical attention if your symptoms reoccur or worsen Medication Reconciliation New Medications: Metoprolol Succinate (Metoprolol Succinate ER) 25 Mg Tabcr 12.5 MG PO QAM for 30 Days, #15 EA 2 Refills Risperidone (Risperidone M-Tab) 0.5 Mg Kimmy 0.5 MG PO HS for 30 Days Risperidone (Risperidone M-Tab) 0.5 Mg Kimmy 0.25 MG PO DAILY for 30 Days Continued Medications: Acetaminophen (Tylenol) 500 Mg Tab 500 MG PO Q4 PRN for Pain or Fever, TAB max 3gm/24hr Aspirin (Aspirin Ec) 81 Mg Tab 81 MG PO DAILY Atorvastatin (Lipitor) 20 Mg Tab 20 MG PO QPM, TAB Diphenhydramine Hcl (Banophen) 25 Mg Cap 25 MG PO HS PRN for Itching Escitalopram (Lexapro) 10 Mg Tab 10 MG PO QAM, TAB Ketotifen Fumarate (Ophth) (Thera Tears Allergy Eye I) 0.025 % Clif 2 DROPS OPB BID PRN for DRYNESS Lisinopril (Lisinopril) 5 Mg Tab 5 MG PO DAILY Lutein (Lutein) 6 Mg Cap 12 MG PO DAILY Nitroglycerin (Nitrostat) 0.4 Mg Tab 0.4 MG UT UD PRN for Chest Pain, BTL Polyethylene Glycol-Propylene (Systane) 1 Kimmy Kimmy 1 DROPS OPB BID, #30 ML 6 Refills Saline (Saline Mist) 0.65 % Spr 2 SPRAYS KAEL HS PRN for DRYNESS Discontinued Medications: Metoprolol Tartrate (Lopressor) (Lopressor) 25 Mg Tab 25 MG PO Q12 hold for pulse < 56/min Admission Information HPI (per Admitting provider): 82-year-old female followed by Dr. Pope. History of ischemic heart disease, hypertension, mild cognitive impairment, and other problems as noted. She resides at [facility] in [place]. Ambulatory without assistive devices, but prone to falling. She was seen in the ED early yesterday morning after sustaining a fall. Imaging of head, face, cervical spine, ribs did not reveal any fractures or intracranial hemorrhage. Urinalysis indicated urinary tract infection. A dose of intravenous ceftriaxone was administered and she was given a dose of cephalexin. Discharged to [facility]. This morning she was found to be confused and had difficulty finding her room. She was sent to the ED for evaluation. In the ED she was noted to be markedly bradycardic with sinus bradycardia in the 40s. She received atropine 0.5 mg IV with improvement of heart rate. Patient denies chest pain, shortness of breath, lightheadedness. No fever. Persistent dysuria. . Physical Exam (per Admitting): CONSTITUTIONAL vital signs as noted above elderly female, well-nourished, no acute distress EYES periorbital ecchymoses and swelling conjunctivae clear; lids normal pupils equal and reactive to light EARS, NOSE, MOUTH AND THROAT external inspection of ears and nose unremarkable hearing grossly intact to spoken voice oropharynx clear NECK no masses; trachea midline thyroid normal RESPIRATORY normal respiratory effort; no respiratory distress clear to percussion clear to auscultation CARDIOVASCULAR regular rate and rhythm, bradycardic no murmur, gallop, rub appreciated carotid arteries 2/2 abdominal aorta not palpable pedal pulses diminished capillary refill toes < 2 seconds no pretibial edema GASTROINTESTINAL normal bowel sounds, soft, nontender; no palpable masses no hepatomegaly; no splenomegaly LYMPHATIC no cervical adenopathy MUSCULOSKELETAL no cyanosis; no digital clubbing no calf tenderness motor strength extremities grossly intact no hip pain with flexion SKIN no rash warm and dry NEUROLOGIC PERRL, EOMI, no facial palsy, no dysarthria, tongue midline patellar DTR's 2/2 plantar reflexes equivocally upgoing, probable withdrawal PSYCHIATRIC oriented to person, place, month, year (could not name exact date); can name president only able / willing to do serial 7s to 93; able to name months backwards x 6 mood and affect appropriate grieving over loss of last summer . Hospital Course Symptomatic Bradycardia: Improved Sinus bradycardia in the 40s in ED. Metoprolol dose decreased from 12.5mg daily Has been refusing meds on and off and goes to sinus Tachycardia as a result TSH elevated, Normal Free T4, Needs repeat testing as outpatient Positive Orthostatics, Compression stockings monitor in Tele ECHO as below EKG: non specific EKG changes Negative Cardiac enzymes Appreciate Cardiology Input Altered Mental Status: multifactorial Major Depression with Psychotic features, Dementia with delirium Encephalopathy secondary to UTI, Meds (diphenhydramine) Risperdal as per Psychiatry Appreciate Psychiatry Input Continue Lexapro Discussed with Psychiatry today: 07/01/17. Plan to discharge on current meds and follow up with her psychiatrist as outpatient UTI Urine culture: growing Klebsiella, Strep completed ceftriaxone course H/O multiple falls Chronic problem. Encouraged to utilize walker. PT / OT ordered CT head: No acute intracranial abnormality CAD H/O NSTEMI s/p PCI with stent. No anginal symptoms. Continue aspirin, reduced dose of metoprolol tartrate, and statin. HTN Continue lisinopril. monitor Dyslipidemia Continue atorvastatin. Depression: Continue escitalopram. DVT Px: No anticoagulants because of fall and head injury. SCD's. Ambulate with assistance. Code Status: DNR Disposition: Plan to discharge to [facility] under care of Dr. Pope today Follow up with in 1 week as advised Follow up with your Psychiatrist at [facility] on 07/27/17 as scheduled Follow up with your Reel Cart Operator on July 21, 2017 at 1:45pm Seek immediate medical attention if your symptoms reoccur or worsen ECHO: * The left ventricular wall motion is normal. * There is mild concentric left ventricular hypertrophy. * Ejection Fraction = 60-65%. * The right ventricle is normal in size and function. * Aortic valve sclerosis mild, without significant aortic valvular stenosis. * There is mild mitral regurgitation. * Diastolic dysfunction, Grade II (pseudonormalization pattern). Total time spent on discharge = 38 minutes This includes examination of the patient, discharge planning, medication reconciliation, and communication with other providers. Discharge Instructions Discharge Instructions Date of Service Jul 01, 2017. Admission Reason for Admission: Bradycardia Discharge Discharge Diagnosis / Problem: Symptomatic bradycardia, UTI, Major Depression with Psychotic features Discharge Goals Goal(s): Decrease discomfort, Improve function Activity Recommendations Activity Limitations: resume your previous activity Exercise/Sports Limitations: as tolerated . Instructions / Follow-Up Instructions / Follow-Up Follow up with in 1 week as advised Follow up with your Psychiatrist at [facility] on 07/27/17 as scheduled Follow up with your Reel Cart Operator on July 21, 2017 at 1:45pm Seek immediate medical attention if your symptoms reoccur or worsen Current Hospital Diet Patient's current hospital diet: Regular Diet Discharge Diet Recommended Diet: Regular Diet Pending Studies Studies pending at discharge: no Laboratory Results Lipid Panel Test 06/10/17 05:55 Range/Units Triglycerides Level 92 0-150 mg/dl Cholesterol Level 135 0-200 mg/dl HDL Cholesterol 43 mg/dl Cholesterol/HDL Ratio 3.1 LDL Cholesterol, Calculated 74 mg/dl Medical Emergencies . Who to Call and When: Medical Emergencies: If at any time you feel your situation is an emergency, please call 911 immediately. . Non-Emergent Contact Non-Emergency issues call your: Primary Care Provider, Reel Cart Operator, Specialist (Psychiatrist) Call Non-Emergent contact if: you have a fever, your pain is not controlled, your pain is worsening, your pain is unusual for you, your pain is concerning you, you have any medication questions Seek immediate medical attention if your symptoms reoccur or worsen . . "Provider Documentation" section prepared by Edson Womack. .
[2017-07-02] MEDS ORDERED: METOPROLOL SUCC 25MG EXT REL TAB PO SCH (09:00)
== END 2017-07-01 16:14 | disposition home or self-care (01) | DRG 308 ==
LOC: EDBD 09:01 → C.EDB 09:02 → ENRESERV 16:07 → C.2T 17:01
PROVIDERS: ADMIT Hospitalist; ATTEND Internal Medicine
DX: R00.1 Bradycardia, unspecified (principal); G93.40 Encephalopathy, unspecified; N39.0 Urinary tract infection, site not specified; F32.3 Major depressive disorder, single episode, severe with psychotic features; F03.91 Unspecified dementia, unspecified severity, with behavioral disturbance; B96.1 Klebsiella pneumoniae [K. pneumoniae] as the cause of diseases classified elsewhere; B95.5 Unspecified streptococcus as the cause of diseases classified elsewhere; T45.0X5A Adverse effect of antiallergic and antiemetic drugs, initial encounter; R29.6 Repeated falls; S00.10XA Contusion of unspecified eyelid and periocular area, initial encounter; I25.10 Atherosclerotic heart disease of native coronary artery without angina pectoris; I10 Essential (primary) hypertension; E78.5 Hyperlipidemia, unspecified; W01.10XA Fall on same level from slipping, tripping and stumbling with subsequent striking against unspecified object, initial encounter; Y92.129 Unspecified place in nursing home as the place of occurrence of the external cause; Z66 Do not resuscitate; I25.2 Old myocardial infarction; Z95.5 Presence of coronary angioplasty implant and graft; Z79.82 Long term (current) use of aspirin; Z79.899 Other long term (current) drug therapy; Z91.040 Latex allergy status; Z88.1 Allergy status to other antibiotic agents; Z88.2 Allergy status to sulfonamides; Z88.5 Allergy status to narcotic agent; Z88.6 Allergy status to analgesic agent; Z88.7 Allergy status to serum and vaccine; Z88.8 Allergy status to other drugs, medicaments and biological substances; Z82.49 Family history of ischemic heart disease and other diseases of the circulatory system; Z83.3 Family history of diabetes mellitus; Z81.8 Family history of other mental and behavioral disorders

== ENCOUNTER 2017-07-04 09:10 | Inpatient (IN) | payer OTHER ==
[~2017-07-04] VITALS: Ht 167.6 cm; Wt 68.8 kg
[~2017-07-04 09:10] MED LIST changes: -CEPH500C PO; -LISI-461 PO; +LSN5 PO; +RSPODT5 PO; +TPRSR25 PO
[2017-07-04] MEDS ORDERED: SODIUM CHLORIDE 0.9% 500ML 500 ML IV STA (09:19)
[2017-07-04] MEDS ORDERED: DIPH25TA28 PO (09:35)
[2017-07-04 09:40] LABS: BASO % 0.7 %; BASO ABS # 0.05 K/uL (0-0.2); EOS % 4.1 %; EOS ABS # 0.31 K/uL (0-0.5); HEMATOCRIT 35.8 % (37-47); HEMOGLOBIN 12.4 g/dL (12.0-16.0); IG# 0.03 K/uL (0.00-0.02); LYMPH % 20.1 %; LYMPH ABS # 1.54 K/uL (1.2-3.4); MEAN CELL VOLUME 88.8 fL (80-100); MEAN CORPUSCULAR HEMOGLOBIN 30.8 pg (25-34); MEAN CORPUSCULAR HGB CONC 34.6 g/dl (32-36); MONO % 8.5 %; MONO ABS # 0.65 K/uL (0.11-0.59); NEUT % 66.2 %; NEUT ABS # 5.07 K/uL (1.4-6.5); PLATELET COUNT 231 K/uL (130-400); RED CELL DISTRIBUTION WIDTH CV 12.5 % (11.5-14.5); RED CELL DISTRIBUTION WIDTH SD 40.5 fL (36.4-46.3); WHITE BLOOD COUNT 7.65 K/uL (4.8-10.8)
--- NOTE | 2017-07-04 09:48 | DIAGNOSTIC IMAGING REPORT ---
CHEST ONE VIEW PORTABLE HISTORY: 82 years-old Female AMS acute altered mental status with fall COMPARISON: Chest radiograph 06/23/2017, CT chest 06/24/2017 TECHNIQUE: Portable AP view of the chest FINDINGS: Cardiac silhouette is again mildly enlarged. Mild blunting of the left costophrenic angle with linear subsegmental left basilar opacities. Lungs are mildly hyperinflated. There is no pneumothorax or overt pulmonary edema. Degenerative changes are seen within the shoulders and spine. Acute appearing minimally displaced fractures involve the lateral aspects of the left ninth and 10th ribs. IMPRESSION: 1. Acute minimally displaced fractures involve the lateral aspects of the left ninth and 10th ribs. 2. Trace left pleural effusion with linear subsegmental left basilar opacities suggesting atelectasis. No pneumothorax identified. The above report was generated using voice recognition software. It may contain grammatical, syntax or spelling errors. Electronically signed by: Ryley Carvajal M.D. 07/04/2017 9:47 AM Dictated Date/Time: 07/04/2017 9:44 AM
[2017-07-04 09:57] LABS: ALBUMIN 2.8 gm/dl (3.4-5.0); CALCIUM 9.3 mg/dl (8.5-10.1); CREATININE 0.73 mg/dl (0.60-1.20); POTASSIUM 3.4 mmol/L (3.5-5.1)
[2017-07-04 10:02] LABS: TOTAL PROTEIN 6.6 gm/dl (6.4-8.2)
--- NOTE | 2017-07-04 10:38 | DIAGNOSTIC IMAGING REPORT ---
CT HEAD WITHOUT CONTRAST (CT) CLINICAL HISTORY: Change in mental status HEAD PAIN STATUS POST TRAUMA COMPARISON STUDY: 06/25/2017 TECHNIQUE: Axial CT of the brain is performed from the vertex to the skull base. IV contrast was not administered for this examination. A dose lowering technique was utilized adhering to the principles of ALARA. CT DOSE: 1052.83 mGy.cm FINDINGS: No intra or extra-axial mass lesions are visualized. There is no CT evidence of acute cortical infarction. There is no evidence of midline shift. There is no acute hemorrhage. No calvarial fractures are visualized. There are patchy white matter hypodensities likely on a small vessel basis. There is no evidence of pathologic ventricular dilatation. There is no evidence of acute sinusitis. There is persistent left frontal scalp edema.. IMPRESSION: No acute intracranial findings Electronically signed by: Toni Tim M.D. 07/04/2017 10:37 AM Dictated Date/Time: 07/04/2017 10:36 AM
--- NOTE | 2017-07-04 10:41 | DIAGNOSTIC IMAGING REPORT ---
CT OF THE CERVICAL SPINE CLINICAL HISTORY: Neck pain status post trauma COMPARISON STUDY: 06/23/2017 CT DOSE: TECHNIQUE: CT scan of the cervical spine was performed from the skull base to the thoracic inlet. Images are reviewed in the axial, sagittal, and coronal planes. IV contrast was not administered for this examination. A dose lowering technique was utilized adhering to the principles of ALARA. FINDINGS: The visualized portions of the lung apices reveal no evidence of pneumothorax. The prevertebral soft tissues are normal. No fractures or subluxations are visualized. There are multilevel degenerative changes. There are some fusion of the right C3-4 facets IMPRESSION: No evidence of acute fracture or traumatic subluxation. Electronically signed by: Toni Tim M.D. 07/04/2017 10:39 AM Dictated Date/Time: 07/04/2017 10:37 AM
--- NOTE | 2017-07-04 10:47 | DIAGNOSTIC IMAGING REPORT ---
CT OF THE CHEST WITH IV CONTRAST CLINICAL HISTORY: Left-sided chest pain status post trauma COMPARISON STUDY: 06/24/2017 TECHNIQUE: Following the IV administration of 117 mL of Optiray-320, CT of the thorax was performed from the thoracic inlet to the lung bases. Images are reviewed in the axial, sagittal, and coronal planes. IV contrast was administered without complication. A dose lowering technique was utilized adhering to the principles of ALARA. CT DOSE: FINDINGS: Thyroid: Imaged portions of the thyroid gland are normal in appearance. Thoracic aorta: The thoracic aorta is normal in course and caliber, noting standard 3-vessel arch anatomy. No aneurysm or dissection is seen. Pulmonary vasculature: There are bilateral pulmonary artery filling defects indicative of pulmonary embolism. HEART: The heart is mildly enlarged. There are cardiac artery calcifications. There is no significant pericardial effusion Lungs and pleural spaces: There are dependent atelectatic changes. There is a trace left pleural effusion. There is no pneumothorax. Mediastinum: There is no mediastinal lymphadenopathy. Olivia: There is no pathologic hilar adenopathy Axilla: There is no pathologic axillary lymphadenopathy Upper abdomen: There is nonspecific bowel wall thickening involving the splenic flexure Skeletal structures: There are no lytic or blastic osseous lesions. IMPRESSION: 1. Bilateral pulmonary embolism 2. No evidence of acute intrathoracic injury 3. Nonspecific bowel wall thickening involving the splenic flexure 4. Bibasilar dependent atelectatic changes. Trace left pleural effusion. Electronically signed by: Toni Tim M.D. 07/04/2017 10:46 AM Dictated Date/Time: 07/04/2017 10:40 AM
[2017-07-04] MEDS ORDERED: POTASSIUM CHLORIDE 10 MEQ TABCR PO STA (11:26)
[2017-07-04] MEDS ORDERED: MAGNESIUM HYDROXIDE SUSP 30 ML UDC PO PRN (11:30)
[2017-07-04] MEDS ORDERED: MoRPHine SULFATE 2 MG/ML CARP IV PRN ×2 (11:30)
[2017-07-04] MEDS ORDERED: NITROGLYCERIN 0.4 MG SL PER TAB CHARGE SL PRN (11:30)
[2017-07-04] MEDS ORDERED: POLYETHYLENE (MIRALAX) 17 GM PACK PO PRN (11:30)
[2017-07-04] MEDS ORDERED: ALUMINUM/MAGNESIUM/SIMETH (MAALOX MAX) 30 ML UDC PO PRN (11:30)
[2017-07-04] MEDS ORDERED: HEPARIN 25000 UNIT/500 ML D5W ONE (11:39)
[2017-07-04] MEDS ORDERED: HEPARIN IV BOLUS 5,000 UNIT in SYRINGE 0 ML IV ONE (11:45)
[2017-07-04] MEDS: HEPARIN 25,000 UNIT/500ML D5W 500 ML IV SCH (11:52)
[2017-07-04] MEDS ORDERED: RISP-99 PO (12:27)
[2017-07-04] MEDS ORDERED: RISP0.5T9 PO (12:27)
[2017-07-04] MEDS ORDERED: METO-478 PO (12:27)
[2017-07-04] MEDS ORDERED: [UNRECOGNIZED DRUG - REMARK] OPB PRN (12:30)
[2017-07-04] MEDS ORDERED: SODIUM CHLORIDE 0.65% NA SOLN 45 ML (OCEAN) NAE PRN (12:30)
[2017-07-04] MEDS ORDERED: NSS + 20MEQ KCL 1000ML 1,000 ML IV SCH (13:00)
--- NOTE | 2017-07-04 13:15 | History and Physical ---
History & Physical Date & Time of Service: Jul 04, 2017 at 12:38 Chief Complaint: FALL Primary Care Physician: William Pope D.O. History of Present Illness Source: patient, family, clinic records, hospital records Pt is 82 y/o F with PMH CAD S/P stent, HTN, dyslipidemia, depression, frequent falls presented to the ER from [facility] with complaint of fall. Patient was admitted 06/24/17 through 07/01/17 for altered mental status, bradycardia, UTI , falls. Negative head and chest CT at that time. Daughter reports patient with confusion for some time reports the patient has hallucinations during hospitalizations. Daughter reports last night patient did call her and said that she fell. Today patient is denying any falls and reports that she does not remember. Daughter reports that patient has been having forgetfulness. report from [facility] after fall last night patient began complaining of left rib pain complaining of rib pain this morning. Patient reports has been eating and drinking normally, and reports that she has tried to increase her water intake as she has been known to not drink enough in the past. Patient reports during her last admission that she choked and had to have the Heimlich maneuver. Denies any recurrent choking. patient denies any headaches, dizziness , vision changes, shortness of breath, hills, diaphoresis, N/V/D/C, syncope, neck pain, SOB, orthopnea, palpitations, cough, sore throat, otalgia, rhinorrhea, abdominal pain, paresthesias, extremity weakness, extremity edema, extremity pain, rashes, urinary symptoms. Echo 06/2017: EF: 60-65%, normal left ventricular wall motion, normal ventricle size and function, mild aortic valve sclerosis, mild mitral regurgitation, grade II diastolic dysfunction. Past Medical/Surgical History Medical Problems: (1) CAD (coronary artery disease) Status: Chronic (2) Diverticulosis Status: Chronic (3) Dyslipidemia Status: Chronic (4) GERD (gastroesophageal reflux disease) Status: Chronic (5) Hypertension Status: Chronic (6) Hypothyroidism Status: Chronic (7) Mild cognitive impairment Status: Chronic Surgical Problems: (1) Status post appendectomy Status: Chronic (2) Status post coronary artery stent placement Status: Chronic (3) Status post hysterectomy Status: Chronic (4) Status post tonsillectomy Status: Chronic Family History Coronary artery disease FATHER Dementia MOTHER Diabetes mellitus MOTHER Social History Smoking Status: Unknown if Ever Smoked Smokeless Tobacco Use: No Alcohol Use: none Drug Use: none Marital Status: Housing status: other ([facility]) Occupational Status: retired Allergies Coded Allergies: Acetaminophen (Verified Allergy, Unknown, unknown, 07/04/17) Ciprofloxacin (Verified Allergy, Unknown, UNKNOWN, 07/04/17) Hydrocodone (Verified Allergy, Unknown, unknown, 07/04/17) Latex1 -Allergic Contact Dermititis (Verified Allergy, Unknown, unknown, ) Magnesium Salicylate (Verified Allergy, Unknown, UNKNOWN, 07/04/17) Sulfa Antibiotics (Verified Allergy, Unknown, UNKNOWN, 07/04/17) Sulfamethoxazole w/Trimethoprim (Verified Allergy, Unknown, UNKNOWN, ) Tetanus Toxoid (Verified Allergy, Unknown, unknown, 07/04/17) Home Medications Scheduled Aspirin (Aspirin Ec), 81 MG PO DAILY Atorvastatin (Lipitor), 20 MG PO QPM Escitalopram (Lexapro), 10 MG PO QAM Lisinopril (Lisinopril), 5 MG PO DAILY Lutein (Lutein), 12 MG PO DAILY Metoprolol Succinate (Toprol Xl), 12.5 MG PO DAILY Polyethylene Glycol-Propylene (Systane), 1 DROPS OPB BID Risperidone (Risperdal), 1 TAB PO HS Risperidone (Risperidone), 0.25 MG PO DAILY Scheduled PRN Acetaminophen (Tylenol), 500 MG PO Q4 PRN for Pain or Fever Diphenhydramine Hcl (Banophen), 25 MG PO HS PRN for Itching Ketotifen Fumarate (Ophth) (Thera Tears Allergy Eye I), 2 DROPS OPB BID PRN for DRYNESS Nitroglycerin (Nitrostat), 0.4 MG UT UD PRN for Chest Pain Saline (Saline Mist), 2 SPRAYS KAEL HS PRN for DRYNESS Review of Systems See HPI for pertinent positives & negatives. All other systems reviewed and were otherwise negative Physical Exam Vital Signs Date Time Temp Pulse Resp B/P (MAP) Pulse Ox O2 Delivery O2 Flow Rate FiO2 07/04/17 11:11 57 07/04/17 09:16 37.0 51 16 162/75 98 Room Air General Appearance: WD/WN, no apparent distress Head: normocephalic, + pertinent finding (left occipital scalp approximate 4 mm length laceration with closed edge approximation. Face: Yellow/green/blue ecchymosis noted periorbital falls last week.) Eyes: normal inspection, PERRL, EOMI, sclerae normal ENT: hearing grossly normal, pharynx normal, + pertinent finding (Mucous membranes slightly dry.) Neck: supple, no JVD, trachea midline, + pertinent finding (No spinous process tenderness to palpation. Range of motion intact.) Respiratory/Chest: lungs clear, normal breath sounds, no respiratory distress, no accessory muscle use, + pertinent finding (Left lateral lower ribs with tenderness to palpation, no crepitus. No chest wall ecchymosis noted. Remaining chest nontender.) Cardiovascular: regular rate, rhythm (Rate 62), no murmur, normal peripheral pulses Abdomen/GI: normal bowel sounds, non tender, soft Back: normal inspection, + pertinent finding (Nontender) Extremities/Musculoskelatal: no calf tenderness, normal capillary refill, no pedal edema, normal range of motion, non-tender, + pertinent finding (Right posterior shoulder with green/blue ecchymosis. Nontender to palpation. Full active range of motion of bilateral upper and lower extremities without tenderness. No erythema noted to BLE) Neurologic/Psych: alert, + pertinent finding (Oriented to person only at this time. Patient pleasant and cooperative.) Skin: warm/dry, + pertinent finding (See above current areas of ecchymosis.) Diagnostics Laboratory Results Results Past 24 Hours Test 07/04/17 09:30 07/04/17 09:55 07/04/17 11:29 Range/Units White Blood Count 7.65 4.8-10.8 K/uL Red Blood Count 4.03 4.2-5.4 M/uL Hemoglobin 12.4 12.0-16.0 g/dL Hematocrit 35.8 37-47 % Mean Corpuscular Volume 88.8 80-100 fL Mean Corpuscular Hemoglobin 30.8 25-34 pg Mean Corpuscular Hemoglobin Concent 34.6 32-36 g/dl Platelet Count 231 130-400 K/uL Mean Platelet Volume 9.0 7.4-10.4 fL Neutrophils (%) (Auto) 66.2 % Lymphocytes (%) (Auto) 20.1 % Monocytes (%) (Auto) 8.5 % Eosinophils (%) (Auto) 4.1 % Basophils (%) (Auto) 0.7 % Neutrophils # (Auto) 5.07 1.4-6.5 K/uL Lymphocytes # (Auto) 1.54 1.2-3.4 K/uL Monocytes # (Auto) 0.65 0.11-0.59 K/uL Eosinophils # (Auto) 0.31 0-0.5 K/uL Basophils # (Auto) 0.05 0-0.2 K/uL RDW Standard Deviation 40.5 36.4-46.3 fL RDW Coefficient of Variation 12.5 11.5-14.5 % Immature Granulocyte % (Auto) 0.4 % Immature Granulocyte # (Auto) 0.03 0.00-0.02 K/uL Prothrombin Time 10.4 9.0-12.0 SECONDS Prothromb Time International Ratio 1.0 0.9-1.1 Activated Partial Thromboplast Time 25.0 21.0-31.0 SECONDS Partial Thromboplastin Ratio 1.0 Sodium Level 140 136-145 mmol/L Potassium Level 3.4 3.5-5.1 mmol/L Chloride Level 108 98-107 mmol/L Carbon Dioxide Level 25 21-32 mmol/L Anion Gap 7.0 3-11 mmol/L Blood Urea Nitrogen 19 7-18 mg/dl Creatinine 0.73 0.60-1.20 mg/dl Est Creatinine Clear Calc Drug Dose 55.6 ml/min Estimated GFR () 88.9 Estimated GFR (Non- 76.7 BUN/Creatinine Ratio 25.5 10-20 Random Glucose 97 70-99 mg/dl Calcium Level 9.3 8.5-10.1 mg/dl Total Bilirubin 0.5 0.2-1 mg/dl Direct Bilirubin 0.1 0-0.2 mg/dl Aspartate Amino Transf (AST/SGOT) 42 15-37 U/L Alanine Aminotransferase (ALT/SGPT) 32 12-78 U/L Alkaline Phosphatase 93 45-117 U/L Troponin I 0.017 0.017 0-0.045 ng/ml Total Protein 6.6 6.4-8.2 gm/dl Albumin 2.8 3.4-5.0 gm/dl Urine Color YELLOW Urine Appearance CLEAR CLEAR Urine pH 5.5 4.5-7.5 Urine Specific Burnett 1.020 1.000-1.030 Urine Protein NEG NEG Urine Glucose (UA) NEG NEG Urine Ketones NEG NEG Urine Occult Blood NEG NEG Urine Nitrite NEG NEG Urine Bilirubin NEG NEG Urine Urobilinogen NEG NEG Urine Leukocyte Esterase NEG NEG Urine WBC (Auto) 1-5 0-5 /hpf Urine RBC (Auto) 0-4 0-4 /hpf Urine Hyaline Casts (Auto) 1-5 0-5 /lpf Urine Epithelial Cells (Auto) 10-20 0-5 /lpf Urine Bacteria (Auto) 4+ NEG Microbiology Results 07/04/17 Urine Culture, Received Pending Diagnostic Radiology CT HEAD: IMPRESSION: No acute intracranial findings CT CHEST: IMPRESSION: 1. Bilateral pulmonary embolism 2. No evidence of acute intrathoracic injury 3. Nonspecific bowel wall thickening involving the splenic flexure 4. Bibasilar dependent atelectatic changes. Trace left pleural effusion. CXR: IMPRESSION: 1. Acute minimally displaced fractures involve the lateral aspects of the left ninth and 10th ribs. 2. Trace left pleural effusion with linear subsegmental left basilar opacities suggesting atelectasis. No pneumothorax identified. CT C-SPINE: IMPRESSION: No evidence of acute fracture or traumatic subluxation. EKG EKG: Sinus bradycardia, rate 49 Impression Assessment and Plan MULTIPLE FALLS: Patient with history of multiple falls, this is chronic. Patient with history of fall last night since complaining of left rib pain, and reported falls this morning. Patient has walker to use, however is noted to be ambulating frequently without the use of walker. -PT OT eval -Fall alarm while here in the hospital RIB FRACTURE: Left ninth and 10th rib fractures noted on CXR. S/P fall yesterday. No crepitus on exam. -Tramadol as needed pain BILATERAL PE: Bilateral PE noted on CT chest. Patient denies any shortness of breath. Vital signs stable. Patient with CT chest on 06/24/17 negative for PEs at that time. IV heparin started in ER. -U/S BLE: Rule out DVT -IV heparin -Continue to monitor HYPOKALEMIA: K: 3.4 -Replace -Monitor electrolytes ALTERED MENTAL STATUS: Patient with history of altered mental status. CT head negative. Last admission patient with history of some hallucinations. -Continue risperidone -Monitor for delirium/hallucinations CAD S/P STENT: -Continue metoprolol, statin HTN: -Continue lisinopril, metoprolol DYSLIPIDEMIA: -Continue statin DEPRESSION: -Continue Lexapro DVT Prophylaxis -On IV heparin Disposition admit telemetry DNR/DNI as per discussion with pt and daughter Follows with Dr Pope at [facility] for routine care Pt was seen with Dr De La Rosa. See addendum ATTENDING ADDENDUM Patient seen and examined care coordinated with Cierra Miller PA-C 82-year-old female with baseline dementia, ambulatory dysfunction [facility] complaint of severe left-sided rib pain. Chest x-ray shows left ninth and 10th rib fracture CT chest with contrast shows bilateral PE Physical exam: Please refer to physical exam done by Cierra Miller PA-C Assessment plan: BILATERAL PULMONARY EMBOLISM: Started with IV heparin weight-based protocol Acute finding, as CT CT chest with contrast done on 06/24/2017 was negative Lower extremity Doppler ordered for rule out DVT Will need long-term anticoagulation given bilateral PE Due to baseline dementia, high fall risk anticoagulation will be difficult Will need detailed discussion with family members regarding goals of care ALTERED MENTAL STATUS/METABOLIC ENCEPHALOPATHY: Has baseline dementia More confused and and lethargic today, possible secondary to reports of poor p.o. intake dehydration, electrolyte imbalance Rule out infection ordered for UA and urine culture CT head without contrast negative for CVA Caution for ing/last hospital admission patient developed hallucination Continue risperidone Fall precaution, ordered for bed alarm CODE STATUS: DNR/DNI Please refer to further documentation by Cierra Miller PA-C for discussion of other chronic issues Estefani De La Rosa MD Resuscitation Status DNR/DNI VTE Prophylaxis Will order VTE Prophylaxis: Yes Additional Copies To [facility]
[2017-07-04] MEDS: LIDODERM (LIDOCAINE) PATCH 5% TD SCH (13:36)
[2017-07-04 13:53] VITALS: BP 169/78; PULSE 59; TEMP 36.4; O2SAT 98; Ht 167.6 cm; Wt 68.8 kg
--- NOTE | 2017-07-04 14:44 | EMERGENCY ROOM VISIT NOTE ---
History Report prepared by Genet: Ben Proctor Under the Supervision of: Dr. Dov Albert D.O. First contact with patient: 09:09 Stated Complaint: FALL History of Present Illness The patient is an 82 year old female with a history of dementia who presents to the Emergency Room via EMS from the [facility] with complaints of multiple sudden mechanical falls that occurred over the past few days. Per the nursing staff, the patient is normally altered but was noted to be more confused this morning than usual. The patient had a fall last night, and has been complaining of left rib pain ever since then. The patient also has bruises on her face from previous falls. The patient is on Aspirin daily. She denies any headaches, vision changes, neck pain, chest pain, new shortness of breath, or abdominal pain. History limited secondary to patient's dementia. Source of History: patient, nursing staff History Limited By: dementia Onset: Over past few days Position: other (global) Symptom Intensity: multiple falls Quality: other (mechanical falls) Timing: other (sudden) Associated Symptoms: No headache, No neck pain, No chest pain, No SOB (new) , No abdominal pain Note: Associated symptoms: Left rib pain. More altered. Review of Systems ROS limited secondary to patient's dementia. 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 (3) Diverticulosis (4) Dyslipidemia (5) Fall (6) GERD (gastroesophageal reflux disease) (7) Hypertension (8) Hypothyroidism (9) Major depressive disorder with psychotic features (10) Mild cognitive impairment (11) Pulmonary embolism Surgical Problems: (1) Status post appendectomy (2) Status post coronary artery stent placement (3) Status post hysterectomy (4) Status post tonsillectomy Family History Coronary artery disease FATHER Dementia MOTHER Diabetes mellitus MOTHER Social History Smoking Status: Never Smoker Marital Status: Housing Status: assisted living Occupation Status: retired Current/Historical Medications Scheduled Aspirin (Aspirin Ec), 81 MG PO DAILY Atorvastatin (Lipitor), 20 MG PO QPM Escitalopram (Lexapro), 10 MG PO QAM Lisinopril (Lisinopril), 5 MG PO DAILY Lutein (Lutein), 12 MG PO DAILY Metoprolol Succinate (Toprol Xl), 12.5 MG PO DAILY Polyethylene Glycol-Propylene (Systane), 1 DROPS OPB BID Risperidone (Risperdal), 1 TAB PO HS Risperidone (Risperidone), 0.25 MG PO DAILY Scheduled PRN Acetaminophen (Tylenol), 500 MG PO Q4 PRN for Pain or Fever Diphenhydramine Hcl (Banophen), 25 MG PO HS PRN for Itching Ketotifen Fumarate (Ophth) (Thera Tears Allergy Eye I), 2 DROPS OPB BID PRN for DRYNESS Nitroglycerin (Nitrostat), 0.4 MG UT UD PRN for Chest Pain Saline (Saline Mist), 2 SPRAYS KAEL HS PRN for DRYNESS Allergies Coded Allergies: Acetaminophen (Verified Allergy, Unknown, unknown, 07/04/17) Ciprofloxacin (Verified Allergy, Unknown, UNKNOWN, 07/04/17) Hydrocodone (Verified Allergy, Unknown, unknown, 07/04/17) Latex1 -Allergic Contact Dermititis (Verified Allergy, Unknown, unknown, ) Magnesium Salicylate (Verified Allergy, Unknown, UNKNOWN, 07/04/17) Sulfa Antibiotics (Verified Allergy, Unknown, UNKNOWN, 07/04/17) Sulfamethoxazole w/Trimethoprim (Verified Allergy, Unknown, UNKNOWN, ) Tetanus Toxoid (Verified Allergy, Unknown, unknown, 07/04/17) Physical Exam Vital Signs Date Time Temp Pulse Resp B/P (MAP) Pulse Ox O2 Delivery O2 Flow Rate FiO2 07/04/17 11:11 57 07/04/17 11:07 63 18 149/81 95 07/04/17 09:16 37.0 51 16 162/75 98 Room Air Physical Exam GENERAL: sitting up in bed, disheveled with multiple bruises. HEAD: Abrasion to left elbow, bruise right humerus. Bruising left forehead and below bilateral eyes. EYE EXAM: normal conjunctiva, PERRL and EOM's grossly intact OROPHARYNX: no exudate, no erythema, lips, buccal mucosa, and tongue normal and mucous membranes are moist NECK: supple, no nuchal rigidity, no adenopathy, non-tender CHEST: stable to compression anteriorly and posteriorly LUNGS: clear to auscultation. Normal chest wall mechanics HEART: no murmurs, S1 normal and S2 normal ABDOMEN: abdomen soft, non-tender, normo-active bowel sounds, no masses, no rebound or guarding. PELVIS: stable to compression anteriorly and posteriorly BACK: Back is symmetrical on inspection and there is no deformity, no midline tenderness, no CVA tenderness. UPPER EXTREMITIES: full active and passive range of motion of all joints without tenderness to palpation LOWER EXTREMITIES: Bruise to left knee, full active and passive range of motion of all joints without tenderness to palpation NEURO EXAM: Awake, alert, following commands, nonfocal. Not oriented to place or time, but is oriented to person. Cranial nerves II-XII grossly intact, normal speech, no gross weakness of arms, no gross weakness of legs. Medical Decision & Procedures ER Provider Diagnostic Interpretation: Radiology results as stated below per my review and the radiologist's interpretation: CT HEAD WITHOUT CONTRAST (CT) CLINICAL HISTORY: Change in mental status HEAD PAIN STATUS POST TRAUMA COMPARISON STUDY: 06/25/2017 TECHNIQUE: Axial CT of the brain is performed from the vertex to the skull base. IV contrast was not administered for this examination. A dose lowering technique was utilized adhering to the principles of ALARA. CT DOSE: 1052.83 mGy.cm FINDINGS: No intra or extra-axial mass lesions are visualized. There is no CT evidence of acute cortical infarction. There is no evidence of midline shift. There is no acute hemorrhage. No calvarial fractures are visualized. There are patchy white matter hypodensities likely on a small vessel basis. There is no evidence of pathologic ventricular dilatation. There is no evidence of acute sinusitis. There is persistent left frontal scalp edema.. IMPRESSION: No acute intracranial findings Electronically signed by: Toni Tim M.D. 07/04/2017 10:37 AM Dictated Date/Time: 07/04/2017 10:36 AM CHEST ONE VIEW PORTABLE HISTORY: 82 years-old Female AMS acute altered mental status with fall COMPARISON: Chest radiograph 06/23/2017, CT chest 06/24/2017 TECHNIQUE: Portable AP view of the chest FINDINGS: Cardiac silhouette is again mildly enlarged. Mild blunting of the left costophrenic angle with linear subsegmental left basilar opacities. Lungs are mildly hyperinflated. There is no pneumothorax or overt pulmonary edema. Degenerative changes are seen within the shoulders and spine. Acute appearing minimally displaced fractures involve the lateral aspects of the left ninth and 10th ribs. IMPRESSION: 1. Acute minimally displaced fractures involve the lateral aspects of the left ninth and 10th ribs. 2. Trace left pleural effusion with linear subsegmental left basilar opacities suggesting atelectasis. No pneumothorax identified. The above report was generated using voice recognition software. It may contain grammatical, syntax or spelling errors. Electronically signed by: Ryley Carvajal M.D. 07/04/2017 9:47 AM Dictated Date/Time: 07/04/2017 9:[address] OF THE CHEST WITH IV CONTRAST CLINICAL HISTORY: Left-sided chest pain status post trauma COMPARISON STUDY: 06/24/2017 TECHNIQUE: Following the IV administration of 117 mL of Optiray-320, CT of the thorax was performed from the thoracic inlet to the lung bases. Images are reviewed in the axial, sagittal, and coronal planes. IV contrast was administered without complication. A dose lowering technique was utilized adhering to the principles of ALARA. CT DOSE: FINDINGS: Thyroid: Imaged portions of the thyroid gland are normal in appearance. Thoracic aorta: The thoracic aorta is normal in course and caliber, noting standard 3-vessel arch anatomy. No aneurysm or dissection is seen. Pulmonary vasculature: There are bilateral pulmonary artery filling defects indicative of pulmonary embolism. HEART: The heart is mildly enlarged. There are cardiac artery calcifications. There is no significant pericardial effusion Lungs and pleural spaces: There are dependent atelectatic changes. There is a trace left pleural effusion. There is no pneumothorax. Mediastinum: There is no mediastinal lymphadenopathy. Olivia: There is no pathologic hilar adenopathy Axilla: There is no pathologic axillary lymphadenopathy Upper abdomen: There is nonspecific bowel wall thickening involving the splenic flexure Skeletal structures: There are no lytic or blastic osseous lesions. IMPRESSION: 1. Bilateral pulmonary embolism 2. No evidence of acute intrathoracic injury 3. Nonspecific bowel wall thickening involving the splenic flexure 4. Bibasilar dependent atelectatic changes. Trace left pleural effusion. Electronically signed by: Toni Tim M.D. 07/04/2017 10:46 AM Dictated Date/Time: 07/04/2017 10:[address] OF THE CERVICAL SPINE CLINICAL HISTORY: Neck pain status post trauma COMPARISON STUDY: 06/23/2017 CT DOSE: TECHNIQUE: CT scan of the cervical spine was performed from the skull base to the thoracic inlet. Images are reviewed in the axial, sagittal, and coronal planes. IV contrast was not administered for this examination. A dose lowering technique was utilized adhering to the principles of ALARA. FINDINGS: The visualized portions of the lung apices reveal no evidence of pneumothorax. The prevertebral soft tissues are normal. No fractures or subluxations are visualized. There are multilevel degenerative changes. There are some fusion of the right C3-4 facets IMPRESSION: No evidence of acute fracture or traumatic subluxation. Electronically signed by: Toni Tim M.D. 07/04/2017 10:39 AM Dictated Date/Time: 07/04/2017 10:37 AM Laboratory Results 07/04/17 09:30 Red Blood Count 4.03, Mean Corpuscular Volume 88.8, Mean Corpuscular Hemoglobin 30.8, Mean Corpuscular Hemoglobin Concent 34.6, Mean Platelet Volume 9.0, Neutrophils (%) (Auto) 66.2, Lymphocytes (%) (Auto) 20.1, Monocytes (%) (Auto) 8.5, Eosinophils (%) (Auto) 4.1, Basophils (%) (Auto) 0.7, Neutrophils # (Auto) 5.07, Lymphocytes # (Auto) 1.54, Monocytes # (Auto) 0.65, Eosinophils # (Auto) 0.31, Basophils # (Auto) 0.05 07/04/17 09:30 Test 07/04/17 09:30 07/04/17 09:55 White Blood Count 7.65 K/uL (4.8-10.8) Red Blood Count 4.03 M/uL (4.2-5.4) Hemoglobin 12.4 g/dL (12.0-16.0) Hematocrit 35.8 % (37-47) Mean Corpuscular Volume 88.8 fL (80-100) Mean Corpuscular Hemoglobin 30.8 pg (25-34) Mean Corpuscular Hemoglobin Concent 34.6 g/dl (32-36) Platelet Count 231 K/uL (130-400) Mean Platelet Volume 9.0 fL (7.4-10.4) Neutrophils (%) (Auto) 66.2 % Lymphocytes (%) (Auto) 20.1 % Monocytes (%) (Auto) 8.5 % Eosinophils (%) (Auto) 4.1 % Basophils (%) (Auto) 0.7 % Neutrophils # (Auto) 5.07 K/uL (1.4-6.5) Lymphocytes # (Auto) 1.54 K/uL (1.2-3.4) Monocytes # (Auto) 0.65 K/uL (0.11-0.59) Eosinophils # (Auto) 0.31 K/uL (0-0.5) Basophils # (Auto) 0.05 K/uL (0-0.2) RDW Standard Deviation 40.5 fL (36.4-46.3) RDW Coefficient of Variation 12.5 % (11.5-14.5) Immature Granulocyte % (Auto) 0.4 % Immature Granulocyte # (Auto) 0.03 K/uL (0.00-0.02) Prothrombin Time 10.4 SECONDS (9.0-12.0) Prothromb Time International Ratio 1.0 (0.9-1.1) Activated Partial Thromboplast Time 25.0 SECONDS (21.0-31.0) Partial Thromboplastin Ratio 1.0 Anion Gap 7.0 mmol/L (3-11) Est Creatinine Clear Calc Drug Dose 55.6 ml/min Estimated GFR () 88.9 Estimated GFR (Non- 76.7 BUN/Creatinine Ratio 25.5 (10-20) Calcium Level 9.3 mg/dl (8.5-10.1) Total Bilirubin 0.5 mg/dl (0.2-1) Direct Bilirubin 0.1 mg/dl (0-0.2) Aspartate Amino Transf (AST/SGOT) 42 U/L (15-37) Alanine Aminotransferase (ALT/SGPT) 32 U/L (12-78) Alkaline Phosphatase 93 U/L (45-117) Total Protein 6.6 gm/dl (6.4-8.2) Albumin 2.8 gm/dl (3.4-5.0) Urine Color YELLOW Urine Appearance CLEAR (CLEAR) Urine pH 5.5 (4.5-7.5) Urine Specific [place] 1.020 (1.000-1.030) Urine Protein NEG (NEG) Urine Glucose (UA) NEG (NEG) Urine Ketones NEG (NEG) Urine Occult Blood NEG (NEG) Urine Nitrite NEG (NEG) Urine Bilirubin NEG (NEG) Urine Urobilinogen NEG (NEG) Urine Leukocyte Esterase NEG (NEG) Urine WBC (Auto) 1-5 /hpf (0-5) Urine RBC (Auto) 0-4 /hpf (0-4) Urine Hyaline Casts (Auto) 1-5 /lpf (0-5) Urine Epithelial Cells (Auto) 10-20 /lpf (0-5) Urine Bacteria (Auto) 4+ (NEG) Laboratory results per my review. Medications Administered Medications (Trade) Dose Ordered Sig/Génesis Route Start Time Stop Time Status Last Admin Dose Admin Sodium Chloride 500 ml @ 999 mls/hr Q31M STAT IV 07/04/17 09:19 07/04/17 09:49 DC 07/04/17 09:45 999 MLS/HR Heparin Sodium/ Dextrose 1 ea NOW STAT N/A 07/04/17 11:09 07/04/17 11:11 DC 07/04/17 11:09 1 EA Potassium Chloride (Klor-Con M10) 20 meq NOW STAT PO 07/04/17 11:26 07/04/17 12:06 DC 07/04/17 12:34 20 MEQ ECG Per My Interpretation Indication: altered mental status Rate (beats per minute): 49 Rhythm: sinus bradycardia Findings: no ectopy, other (normal axis) ED Course ED COURSE: Vital signs were reviewed and showed hypertensive situational vitals. The patients medical record was reviewed The above diagnostic studies were performed and reviewed. ED treatments and interventions as stated above. 0911: The patient was evaluated in room A3. A limited history and physical examination was performed. 0919: NSS 500 ml @ 999 mls/hr IV. 1109: Heparin Sodium/Dextrose 1 ea N/A. 1110: Upon reevaluation, the patient is resting.I discussed my findings with the patient's daughter and she understands and agrees with the treatment plan. Based on the patients age, coexisting illnesses, exam and lab findings the decision to treat as an inpatient was made. The patient remained stable while under my care. The patient will be evaluated for further management. 1113: I reviewed the patient's case with Shannon Clifford. She will evaluate the patient for further management. Medical Decision Differential diagnoses includes but is not limited to toxic, metabolic, infectious, traumatic, cardiac, neurologic, hematologic, psychiatric and inflammatory etiologies. Patient is an 82-year-old female who presents the ER for multiple falls at [facility]. They noted that she was slightly more confused than baseline. Labs were obtained through IV. CBC along with BMP, LFTs, bilirubin are unremarkable. Troponin were negative 2. UA was negative. CT of the head and cervical spine were negative. CT of the chest shows bilateral PEs with 2 rib fractures and a small pleural effusion. Patient had no abdominal pain. Discussed with daughter who is at bedside and reviewed bleeding risk factors. She is a high bleeding risk with multiple falls. She will remain in bed while here in the ER. We placed on a heparin drip and bolus. She was admitted to internal medicine with bilateral PEs. Medication Reconcilliation Current Medication List: was personally reviewed by me Blood Pressure Screening Patient's blood pressure: Elevated blood pressure Blood pressure disposition: Elevated BP felt to be situational Consults Time Called: 1110 Consulting Physician: Shannon Clifford Returned Call: [phone] I reviewed the patient's case with Shannon Clifford. She will evaluate the patient for further management. Impression Primary Impression: Bilateral pulmonary embolism Additional Impression: Rib fractures Critical Care I have personally spent 35 minutes of critical care time in the direct management of this patient. This includes bedside care, interpretation of diagnostic studies, and testing, discussion with consultants, patient, and family members, and other required patient management activities. This 35 minutes is in excess of all separately billable procedures. Scribe Attestation The scribe's documentation has been prepared under my direction and personally reviewed by me in its entirety. I confirm that the note above accurately reflects all work, treatment, procedures, and medical decision making performed by me. Departure Information Dispostion Being Evaluated By Hospitalist Referrals William Pope D.O. (PCP) Problem Qualifiers Additional Impression: Rib fractures Encounter type: initial encounter Rib fracture type: multiple ribs Fracture type: closed Laterality: unspecified laterality Qualified Codes: S22.49XA - Multiple fractures of ribs, unspecified side, initial encounter for closed fracture
--- NOTE | 2017-07-04 15:17 | DIAGNOSTIC IMAGING REPORT ---
BILATERAL LOWER EXTREMITY VENOUS DOPPLER HISTORY: Acute bilateral lower extremity swelling PE r/o DVT COMPARISON STUDY: None. FINDINGS: RIGHT: The common femoral, superficial femoral, popliteal, posterior tibial and anterior tibial veins are patent. Occlusive thrombus is noted within one of the two paired Peroneal veins. Partially occlusive thrombus of the lesser saphenous vein. LEFT: There is normal compressibility, flow, and augmentation within the bilateral lower extremity deep venous systems. IMPRESSION: 1. Occlusive deep venous thrombosis involves one of the two paired peroneal veins on the right. Additionally, there is partially occlusive superficial venous thrombus within the right lesser saphenous vein. 2. No evidence of left lower extremity deep venous thrombosis. Electronically signed by: Ryley Carvajal M.D. 07/04/2017 3:15 PM Dictated Date/Time: 07/04/2017 3:11 PM
[2017-07-04 18:38] LABS: PTT PATIENT 55.1 SECONDS (21.0-31.0)
[2017-07-04 20:08] VITALS: BP 129/72; PULSE 61; TEMP 36.9; O2SAT 95
[2017-07-04] MEDS: TRAMADOL HCL 50 MG TAB PO PRN (20:24)
[2017-07-04] MEDS: DOCUSATE SODIUM 100 MG CAP PO SCH (20:24)
[2017-07-04] MEDS: ARTIFICIAL TEARS OP SOLN OPB SCH (20:24)
[2017-07-04] MEDS: ATORVASTATIN 20 MG TAB PO SCH (20:26)
[2017-07-04] MEDS ORDERED: RISPERIDONE 0.5 MG TAB PO SCH (21:00)
[2017-07-05 00:07] VITALS: BP 144/76; PULSE 62; TEMP 36.7; O2SAT 96
[2017-07-05] MEDS: TRAMADOL HCL 50 MG TAB PO PRN (02:48)
[2017-07-05] MEDS: ONDANSETRON INJ 2 MG/ML 2 ML VIAL IV PRN (03:02)
[2017-07-05 04:08] VITALS: BP 111/67; PULSE 64; TEMP 36.9; O2SAT 94
[2017-07-05 07:12] VITALS: BP 111/65; PULSE 65; TEMP 36.8; O2SAT 94
[2017-07-05 07:43] LABS: HEMATOCRIT 34.5 % (37-47); HEMOGLOBIN 11.4 g/dL (12.0-16.0); MEAN CELL VOLUME 89.6 fL (80-100); MEAN CORPUSCULAR HEMOGLOBIN 29.6 pg (25-34); MEAN PLATELET VOLUME 9.2 fL (7.4-10.4); PLATELET COUNT 241 K/uL (130-400); RED CELL DISTRIBUTION WIDTH CV 12.5 % (11.5-14.5); RED CELL DISTRIBUTION WIDTH SD 40.8 fL (36.4-46.3); WHITE BLOOD COUNT 10.27 K/uL (4.8-10.8)
[2017-07-05 08:01] LABS: PTT PATIENT 63.6 SECONDS (21.0-31.0)
[2017-07-05 08:42] LABS: ALBUMIN 2.4 gm/dl (3.4-5.0); CALCIUM 8.6 mg/dl (8.5-10.1); CREATININE 0.65 mg/dl (0.60-1.20); POTASSIUM 3.9 mmol/L (3.5-5.1); TOTAL PROTEIN 5.7 gm/dl (6.4-8.2)
[2017-07-05] MEDS ORDERED: LUTEIN 12 MG PO SCH (09:00)
[2017-07-05] MEDS ORDERED: RISPERIDONE 0.5 MG TAB PO SCH (09:00)
[2017-07-05] MEDS: LIDODERM (LIDOCAINE) PATCH 5% TD SCH (09:00)
[2017-07-05] MEDS: ASPIRIN 81 MG ECTAB PO SCH (09:08)
[2017-07-05] MEDS: ARTIFICIAL TEARS OP SOLN OPB SCH ×2 (09:08→21:13)
[2017-07-05] MEDS: METOPROLOL SUCC 25MG EXT REL TAB PO SCH (09:09)
[2017-07-05] MEDS: LISINOPRIL 5 MG TAB PO SCH (09:09)
[2017-07-05] MEDS: DOCUSATE SODIUM 100 MG CAP PO SCH ×2 (09:09→21:13)
[2017-07-05] MEDS: SENNA 8.6 MG TAB PO SCH (09:09)
[2017-07-05] MEDS: ESCITALOPRAM OXALATE 10 MG TAB PO SCH (09:10)
[2017-07-05] MEDS: HEPARIN 25,000 UNIT/500ML D5W 500 ML IV SCH (09:21)
--- NOTE | 2017-07-05 13:08 | Progress Note ---
Internal Med Progress Note Date of Service: Jul 05, 2017. Provider Documentation: SUBJECTIVE: The patient was seen and examined. She was admitted with a fall and was noted to have pulmonary embolism and also deep venous thrombosis. She is pleasantly confused but denies to have any significant symptoms. No chest pain shortness of breath and palpitation at rest. OBJECTIVE: Vital Signs-as noted below Exam: General-no apparent distress Eyes-normal ENT-normal Neck-supple Lungs-decreased breath sounds with minimal right basilar rales Heart-regular no murmur Abdomen-benign, no masses, bowel sounds present Extremities-no edema Neuro-alert awake, pleasantly confused. Generally weak, no focal neuro deficit. Lab data as noted below. ASSESSMENT & PLAN: MULTIPLE FALLS: Patient with history of multiple falls, this is chronic. Patient with history of fall last night since complaining of left rib pain, and reported falls this morning. Patient has walker to use, however is noted to be ambulating frequently without the use of walker. -PT OT eval -Fall precaution Traumatic Rib Fracture secondary to fall Left ninth and 10th rib fractures noted on CXR. S/P fall yesterday. No crepitus on exam. -Tramadol as needed pain Avoid narcotics BILATERAL PE: Bilateral PE noted on CT chest. Patient denies any shortness of breath. Patient with CT chest on 06/24/17 negative for PEs at that time. IV heparin started in ER. -U/S BLE: Rule out DVT::1. Occlusive deep venous thrombosis involves one of the two paired peroneal veins on the right. Additionally, there is partially occlusive superficial venous thrombus within the right lesser saphenous vein. 2. No evidence of left lower extremity deep venous thrombosis. 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 CT head negative. Last admission patient with history of some hallucinations. -Continue risperidone -Monitor for delirium/hallucinations CAD S/P STENT: -Continue metoprolol, statin HTN: -Continue lisinopril, metoprolol DYSLIPIDEMIA: -Continue statin DEPRESSION: -Continue Lexapro DVT Prophylaxis -On IV heparin Disposition admit telemetry DNR/DNI as per discussion with pt and daughter Follows with Dr Pope at [facility] for routine care Vital Signs: Date Time Temp Pulse Resp B/P (MAP) Pulse Ox O2 Delivery O2 Flow Rate FiO2 07/05/17 08:00 Room Air 07/05/17 07:12 36.8 65 16 111/65 (80) 94 Room Air 07/05/17 04:08 36.9 64 18 111/67 (82) 94 Room Air 07/05/17 03:42 Room Air 07/05/17 00:38 Room Air 07/05/17 00:07 36.7 62 18 144/76 (98) 96 Room Air 07/04/17 20:14 Room Air 07/04/17 20:08 36.9 61 18 129/72 (91) 95 Room Air 07/04/17 13:53 36.4 59 18 169/78 98 Room Air Lab Results: Results Past 24 Hours Test 07/04/17 17:53 07/05/17 07:33 Range/Units Activated Partial Thromboplast Time 55.1 63.6 21.0-31.0 SECONDS Partial Thromboplastin Ratio 2.1 2.4 White Blood Count 10.27 4.8-10.8 K/uL Red Blood Count 3.85 4.2-5.4 M/uL Hemoglobin 11.4 12.0-16.0 g/dL Hematocrit 34.5 37-47 % Mean Corpuscular Volume 89.6 80-100 fL Mean Corpuscular Hemoglobin 29.6 25-34 pg Mean Corpuscular Hemoglobin Concent 33.0 32-36 g/dl RDW Standard Deviation 40.8 36.4-46.3 fL RDW Coefficient of Variation 12.5 11.5-14.5 % Platelet Count 241 130-400 K/uL Mean Platelet Volume 9.2 7.4-10.4 fL Sodium Level 139 136-145 mmol/L Potassium Level 3.9 3.5-5.1 mmol/L Chloride Level 109 98-107 mmol/L Carbon Dioxide Level 24 21-32 mmol/L Anion Gap 6.0 3-11 mmol/L Blood Urea Nitrogen 12 7-18 mg/dl Creatinine 0.65 0.60-1.20 mg/dl Est Creatinine Clear Calc Drug Dose 62.4 ml/min Estimated GFR () 95.8 Estimated GFR (Non- 82.7 BUN/Creatinine Ratio 18.0 10-20 Random Glucose 102 70-99 mg/dl Calcium Level 8.6 8.5-10.1 mg/dl Magnesium Level 1.7 1.8-2.4 mg/dl Total Bilirubin 0.4 0.2-1 mg/dl Direct Bilirubin 0.1 0-0.2 mg/dl Aspartate Amino Transf (AST/SGOT) 29 15-37 U/L Alanine Aminotransferase (ALT/SGPT) 27 12-78 U/L Alkaline Phosphatase 86 45-117 U/L Total Protein 5.7 6.4-8.2 gm/dl Albumin 2.4 3.4-5.0 gm/dl
[2017-07-05 15:11] VITALS: BP 96/57; PULSE 65; TEMP 36.5; O2SAT 94
[2017-07-05 19:02] VITALS: BP 107/63; PULSE 66; TEMP 37.1; O2SAT 94
[2017-07-05] MEDS ORDERED: AMPICILLIN/SULBACTAM SOD INJ 3,000 MG in SODIUM CHLORIDE 0.9% 100ML 100 ML IV ONE (20:30)
[2017-07-05] MEDS: ATORVASTATIN 20 MG TAB PO SCH (21:13)
[2017-07-05 23:42] VITALS: BP 117/66; PULSE 64; TEMP 36.4; O2SAT 94
[2017-07-06] MEDS: AMPICILLIN/SULBACTAM SOD INJ 3,000 MG in SODIUM CHLORIDE 0.9% 100ML 100 ML IV SCH ×4 (02:17→19:56)
[2017-07-06 03:24] VITALS: BP 112/66; PULSE 65; TEMP 36.8; O2SAT 94
[2017-07-06 05:13] VITALS: BP 127/72; PULSE 65; TEMP 36.8; O2SAT 95
[2017-07-06 06:42] LABS: HEMATOCRIT 35.3 % (37-47); HEMOGLOBIN 12.1 g/dL (12.0-16.0); MEAN CELL VOLUME 90.5 fL (80-100); MEAN CORPUSCULAR HGB CONC 34.3 g/dl (32-36); MEAN PLATELET VOLUME 9.2 fL (7.4-10.4); PLATELET COUNT 272 K/uL (130-400); RED CELL DISTRIBUTION WIDTH CV 12.7 % (11.5-14.5); RED CELL DISTRIBUTION WIDTH SD 41.8 fL (36.4-46.3); WHITE BLOOD COUNT 9.51 K/uL (4.8-10.8)
[2017-07-06 07:09] LABS: PTT PATIENT 81.2 SECONDS (21.0-31.0)
[2017-07-06 07:14] LABS: CREATININE 0.74 mg/dl (0.60-1.20); POTASSIUM 3.5 mmol/L (3.5-5.1)
[2017-07-06] MEDS: DOCUSATE SODIUM 100 MG CAP PO SCH ×2 (08:06→21:00)
[2017-07-06] MEDS: ARTIFICIAL TEARS OP SOLN OPB SCH ×2 (08:06→21:10)
[2017-07-06] MEDS: ESCITALOPRAM OXALATE 10 MG TAB PO SCH (08:06)
[2017-07-06] MEDS: METOPROLOL SUCC 25MG EXT REL TAB PO SCH (08:07)
[2017-07-06] MEDS: LIDODERM (LIDOCAINE) PATCH 5% TD SCH (08:07)
[2017-07-06] MEDS: ASPIRIN 81 MG ECTAB PO SCH (08:07)
[2017-07-06] MEDS: SENNA 8.6 MG TAB PO SCH (08:07)
[2017-07-06] MEDS: LISINOPRIL 5 MG TAB PO SCH (08:07)
[2017-07-06] MEDS: HEPARIN 25,000 UNIT/500ML D5W 500 ML IV SCH ×2 (09:26→13:09)
[2017-07-06 11:43] VITALS: BP 124/66; PULSE 82; TEMP 36.9; O2SAT 97
--- NOTE | 2017-07-06 11:45 | Progress Note ---
Internal Med Progress Note Date of Service: Jul 06, 2017. Provider Documentation: SUBJECTIVE: The patient was seen and examined. She was admitted with a fall and was noted to have pulmonary embolism and also deep venous thrombosis. She is pleasantly confused but denies to have any significant symptoms. No chest pain shortness of breath and palpitation at rest. 07/06 Much better this AM No more drowsiness and denies any symptoms Has had very short runs of PVC/AF May need o increase BB OBJECTIVE: Vital Signs-as noted below Exam: General-no apparent distress Eyes-normal ENT-normal Neck-supple Lungs-decreased breath sounds with minimal right basilar rales Heart-regular no murmur Abdomen-benign, no masses, bowel sounds present Extremities-no edema Neuro-alert awake, pleasantly confused. Generally weak, no focal neuro deficit. Lab data as noted below. ASSESSMENT & PLAN: UTI-Enterococcal Started on Unasyn Await c/s Clinically a lot better MULTIPLE FALLS: Patient with history of multiple falls, this is chronic. Patient with history of fall last night since complaining of left rib pain, and reported falls this morning. Patient has walker to use, however is noted to be ambulating frequently without the use of walker. -PT OT eval -Fall precaution Traumatic Rib Fracture secondary to fall Left ninth and 10th rib fractures noted on CXR. S/P fall yesterday. No crepitus on exam. -Tramadol as needed pain Avoid narcotics BILATERAL PE: Bilateral PE noted on CT chest. Patient denies any shortness of breath. Patient with CT chest on 06/24/17 negative for PEs at that time. IV heparin started in ER. -U/S BLE: Rule out DVT::1. Occlusive deep venous thrombosis involves one of the two paired peroneal veins on the right. Additionally, there is partially occlusive superficial venous thrombus within the right lesser saphenous vein. 2. No evidence of left lower extremity deep venous thrombosis. -IV heparin ,will need anticoagulation for assisted -Hypercoagulable w/u sent -family to decide the kind of Anticoagulation HYPOKALEMIA: K: 3.4 -Replace -Monitor electrolytes ALTERED MENTAL STATUS: Patient with history of altered mental status. CT head negative. Last admission patient with history of some hallucinations. -Continue risperidone -Monitor for delirium/hallucinations CAD S/P STENT: -Continue metoprolol, statin HTN: -Continue lisinopril, metoprolol DYSLIPIDEMIA: -Continue statin DEPRESSION: -Continue Lexapro DVT Prophylaxis -On IV heparin Disposition admit telemetry DNR/DNI as per discussion with pt and daughter Follows with Dr Pope at [facility] for routine care Vital Signs: Date Time Temp Pulse Resp B/P (MAP) Pulse Ox O2 Delivery O2 Flow Rate FiO2 07/06/17 08:00 Room Air 07/06/17 05:13 36.8 65 18 127/72 (90) 95 Room Air 07/06/17 03:24 36.8 65 18 112/66 (81) 94 Room Air 07/05/17 23:42 36.4 64 20 117/66 (83) 94 Room Air 07/05/17 19:02 37.1 66 20 107/63 (78) 94 Room Air 07/05/17 16:00 Room Air 07/05/17 15:11 36.5 65 18 96/57 (70) 94 Room Air Lab Results: Results Past 24 Hours Test 07/06/17 06:33 07/06/17 11:32 Range/Units White Blood Count 9.51 4.8-10.8 K/uL Red Blood Count 3.90 4.2-5.4 M/uL Hemoglobin 12.1 12.0-16.0 g/dL Hematocrit 35.3 37-47 % Mean Corpuscular Volume 90.5 80-100 fL Mean Corpuscular Hemoglobin 31.0 25-34 pg Mean Corpuscular Hemoglobin Concent 34.3 32-36 g/dl RDW Standard Deviation 41.8 36.4-46.3 fL RDW Coefficient of Variation 12.7 11.5-14.5 % Platelet Count 272 130-400 K/uL Mean Platelet Volume 9.2 7.4-10.4 fL Activated Partial Thromboplast Time 81.2 21.0-31.0 SECONDS Partial Thromboplastin Ratio 3.1 Sodium Level 138 136-145 mmol/L Potassium Level 3.5 3.5-5.1 mmol/L Chloride Level 107 98-107 mmol/L Carbon Dioxide Level 24 21-32 mmol/L Anion Gap 7.0 3-11 mmol/L Blood Urea Nitrogen 13 7-18 mg/dl Creatinine 0.74 0.60-1.20 mg/dl Est Creatinine Clear Calc Drug Dose 54.8 ml/min Estimated GFR () 87.4 Estimated GFR (Non- 75.4 BUN/Creatinine Ratio 17.1 10-20 Random Glucose 97 70-99 mg/dl Calcium Level 9.0 8.5-10.1 mg/dl Magnesium Level 1.7 1.8-2.4 mg/dl
[2017-07-06 14:47] LABS: PTT PATIENT 52.4 SECONDS (21.0-31.0)
[2017-07-06 15:14] VITALS: BP 113/67; PULSE 71; TEMP 37.2; O2SAT 95
[2017-07-06 19:06] VITALS: BP 123/65; PULSE 77; TEMP 36.6; O2SAT 96
[2017-07-06] MEDS: ATORVASTATIN 20 MG TAB PO SCH (21:10)
[2017-07-06 23:29] VITALS: BP 153/69; PULSE 88; TEMP 37.3; O2SAT 95
[2017-07-07] VITALS (7 sets, daily range): BP systolic 95–117; BP diastolic 57–69; PULSE 59–83; TEMP 36.5–36.7; O2SAT 94–98
[2017-07-07] MEDS ORDERED: OPTIRAY 320 IV PRN (00:15)
[2017-07-07] MEDS: RASPBERRY SYRUP 5 ML UDP PO SCH ×5 (01:16→23:51)
[2017-07-07] MEDS: VANCOMYCIN HCL 125 MG/2.5ML SOLN PO SCH ×5 (01:17→23:51)
[2017-07-07] MEDS: AMPICILLIN/SULBACTAM SOD INJ 3,000 MG in SODIUM CHLORIDE 0.9% 100ML 100 ML IV SCH ×4 (01:39→20:15)
[2017-07-07] MEDS ORDERED: IBUPROFEN 200 MG TAB PO PRN (01:45)
[2017-07-07 05:41] LABS: HEMATOCRIT 33.2 % (37-47); HEMOGLOBIN 10.9 g/dL (12.0-16.0); MEAN CORPUSCULAR HEMOGLOBIN 29.2 pg (25-34); MEAN CORPUSCULAR HGB CONC 32.8 g/dl (32-36); MEAN PLATELET VOLUME 9.1 fL (7.4-10.4); PLATELET COUNT 278 K/uL (130-400); RED CELL DISTRIBUTION WIDTH CV 12.6 % (11.5-14.5); RED CELL DISTRIBUTION WIDTH SD 40.4 fL (36.4-46.3); WHITE BLOOD COUNT 11.04 K/uL (4.8-10.8)
[2017-07-07 06:14] LABS: CALCIUM 8.6 mg/dl (8.5-10.1); CREATININE 0.75 mg/dl (0.60-1.20); POTASSIUM 3.4 mmol/L (3.5-5.1)
[2017-07-07 06:50] LABS: PTT PATIENT 62.4 SECONDS (21.0-31.0)
--- NOTE | 2017-07-07 07:13 | DIAGNOSTIC IMAGING REPORT ---
KUB CLINICAL HISTORY: Generalized abdominal pain. FINDINGS: 2 AP supine abdominal radiographs are correlated with abdominal CT performed the same day 07/07/2017. There is a nonobstructed abdominal bowel gas pattern noting moderate colonic fecal retention. Excreted contrast is present within the renal collecting system bilaterally and the bladder. No evidence of intraperitoneal free air is seen on these supine images. Numerous phleboliths are identified in the pelvis. The skeletal structures are osteopenic. There is advanced lumbosacral spondylosis and scoliosis. The bony pelvis appears intact. IMPRESSION: Nonobstructed abdominal bowel gas pattern noting moderate colonic fecal retention. Electronically signed by: Holden Dao M.D. 07/07/2017 7:12 AM Dictated Date/Time: 07/07/2017 7:10 AM
--- NOTE | 2017-07-07 07:27 | DIAGNOSTIC IMAGING REPORT ---
CT ANGIOGRAM OF THE ABDOMEN AND PELVIS CLINICAL HISTORY: Generalized abdominal pain. COMPARISON STUDY: No priors. TECHNIQUE: Following the IV administration of 115 cc of Optiray 320, CT angiogram of the abdomen and pelvis was performed from the lung bases the proximal femora. Images are reviewed in the axial, sagittal, and coronal planes. 3-D MIPS images are created and assessed. IV contrast was administered without complication. A dose lowering technique was utilized adhering to the principles of ALARA. The examination is degraded by motion artifact, as well as by streak artifact from the patient's arms which could not be elevated above the abdomen. CT DOSE: 566.89 mGy.cm FINDINGS: Lower chest: The heart is enlarged and without pericardial effusion. The coronary arteries are densely calcified. There are trace pleural effusions with dependent atelectasis. Liver: The contrast-enhanced liver is normal in size, contour, and attenuation. There is no intrahepatic or ductal dilatation. The main portal veins appear patent. Gallbladder: Small calcified gallstones are identified. There is no CT evidence of acute cholecystitis. Spleen: Normal in size and attenuation noting heterogeneous arterial phase enhancement. Pancreas: Atrophic and grossly unremarkable. Adrenal glands: Small bilateral adrenal nodules likely represent adenomas but cannot be definitively characterized. Kidneys: The contrast enhanced kidneys are atrophic and without hydronephrosis. The kidneys enhance symmetrically. 1.9 cm cyst arises from the right upper pole. Abdominal aorta and iliac arteries: There is moderate to advanced atherosclerotic calcification of the abdominal aorta which is normal in caliber and patent. No aortic dissection is identified. The iliac vessels are patent bilaterally noting atherosclerotic calcification and irregularity. Less than 50% luminal narrowing is seen in the left common iliac artery secondary to calcified plaque. Major branches of the abdominal aorta: The celiac trunk, superior mesenteric, and inferior mesenteric arteries are widely patent. An accessory left hepatic artery arises from the left gastric artery. The splenic artery is patent. Single bilateral renal arteries are patent. Bowel: No bowel obstruction is identified. Moderate fecal retention is noted in the right colon. A large duodenal diverticulum is observed. There is moderate colonic diverticulosis without CT evidence of acute diverticulitis. The appendix is not identified and reported surgically absent. There is significant wall thickening and mucosal hyperemia involving the distal sigmoid colon and rectum. There is associated pericolonic and perirectal inflammation. Milder inflammatory change is suggested involving the remainder of the colon. Peritoneum: There is no intraperitoneal free air or abdominal ascites. Lymphadenopathy: None. Pelvic viscera: The bladder is normal as visualized. The uterus is surgically absent. No adnexal lesion is seen. Skeletal structures: The skeletal structures are osteopenic. There is advanced lumbosacral spondylosis and scoliosis. No destructive bony lesions are seen. IMPRESSION: 1. Streak and motion compromised examination. 2. Findings are consistent with a nonspecific colitis, greatest involving the sigmoid colon and rectum. This could be on an infectious, inflammatory, and/or ischemic basis. Clinical correlation will be required. 3. Unremarkable CT angiogram of the abdominal aorta and its major branches noting atherosclerotic plaque. The major vessels are patent. 4. No intraperitoneal free air is seen. 5. Cardiomegaly and trace pleural effusions. 6. Moderate colonic diverticulosis without CT evidence of acute diverticulitis. 7. Cholelithiasis. 8. Additional findings as above. Electronically signed by: Holden Dao M.D. 07/07/2017 7:25 AM Dictated Date/Time: 07/07/2017 7:10 AM
[2017-07-07] MEDS ORDERED: POTASSIUM CHLORIDE 10 MEQ TABCR PO STA (07:37)
[2017-07-07] MEDS: METOPROLOL SUCC 25MG EXT REL TAB PO SCH (08:21)
[2017-07-07] MEDS: LISINOPRIL 5 MG TAB PO SCH ×2 (08:27→08:28)
--- NOTE | 2017-07-07 08:42 | Clinical Documentation Query ---
QUERY 1 OF [address] CUNNINGHAM, In your clinical opinion is this patient being managed for: ( ) C. diff colitis, POA ( +) C. diff colitis, not POA ( ) Not Agree ( ) Other explanation of clinical findings (Please Explain) ( ) Unable to determine (Please Define) ( ) Need to Discuss The medical record reflects the following clinical findings, treatment, and risk factors. Clinical Indicators: 82 yo female presenting with increasing number of falls, UTI, PE and DVT. Stool cx + for C diff. Treatment:C diff precautions, vancomycin po, IV fluid bolus by ER Risk Factors: age, resides in assisted living QUERY 2 OF 2 In your clinical opinion is this patient being managed for: (+ ) Metabolic encephalopathy ( ) Not Agree ( ) Other explanation of clinical findings (Please Explain) ( ) Unable to determine (Please Define) ( ) Need to Discuss The medical record reflects the following clinical findings, treatment, and risk factors. Clinical Indicators: Pt presented with increasing confusion and lethargy. Pt does have a known hx of dementia. Nursing progress notes indicate pt became much more alert and awake on the 3rd day of admission. Found to have UTI and + C diff as well as PE/DVT and rib fractures. CT head negative for acute findings. Treatment: IV unasyn, po vancomycin, IV fluids in ER, IV heparin, CT head Risk Factors: UTI, C diff colitis, preexisting dementia. Please clarify and document your clinical opinion in the progress notes and discharge summary. Terms such as "probable", "suspected", "likely", "questionable", "possible", or "still to be ruled out" are acceptable. IF IN AGREEMENT, YOU MUST DOCUMENT ABOVE DIAGNOSTIC STATEMENT IN DAILY PROGRESS NOTES AND DISCHARGE SUMMARY. This document is not part of the patient's record. Thank You, Shruti Diamond, SANDRA [phone]
[2017-07-07] MEDS: ARTIFICIAL TEARS OP SOLN OPB SCH ×2 (08:43→20:26)
[2017-07-07] MEDS: DOCUSATE SODIUM 100 MG CAP PO SCH ×2 (08:43→20:24)
[2017-07-07] MEDS: SENNA 8.6 MG TAB PO SCH (08:44)
[2017-07-07] MEDS: ASPIRIN 81 MG ECTAB PO SCH (08:44)
[2017-07-07] MEDS: ESCITALOPRAM OXALATE 10 MG TAB PO SCH (08:45)
[2017-07-07] MEDS: LIDODERM (LIDOCAINE) PATCH 5% TD SCH (08:45)
--- NOTE | 2017-07-07 16:08 | Progress Note ---
Internal Med Progress Note Date of Service: Jul 07, 2017. Provider Documentation: SUBJECTIVE: The patient was seen and examined. She was admitted with a fall and was noted to have pulmonary embolism and also deep venous thrombosis. She is pleasantly confused but denies to have any significant symptoms. No chest pain shortness of breath and palpitation at rest. 07/06 Much better this AM No more drowsiness and denies any symptoms Has had very short runs of PVC/AF May need o increase BB 07/07 Has had C diff colitis Clinically better OBJECTIVE: Vital Signs-as noted below Exam: General-no apparent distress Eyes-normal ENT-normal Neck-supple Lungs-decreased breath sounds with minimal right basilar rales Heart-regular no murmur Abdomen-benign, no masses, bowel sounds present Extremities-no edema Neuro-alert awake, pleasantly confused. Generally weak, no focal neuro deficit. Lab data as noted below. ASSESSMENT & PLAN: UTI-Enterococcal -pansensitive Started on Unasyn Await c/s Clinically a lot better Will transition to Oral Ampicillin on discharge C Diff Colitis -diagnosed in Hospital Oral Vancomycin added MULTIPLE FALLS: Patient with history of multiple falls, this is chronic. Patient with history of fall last night since complaining of left rib pain, and reported falls this morning. Patient has walker to use, however is noted to be ambulating frequently without the use of walker. -PT OT eval -Fall precaution Traumatic Rib Fracture secondary to fall Left ninth and 10th rib fractures noted on CXR. S/P fall yesterday. No crepitus on exam. -Tramadol as needed pain Avoid narcotics BILATERAL PE: Bilateral PE noted on CT chest. Patient denies any shortness of breath. Patient with CT chest on 06/24/17 negative for PEs at that time. IV heparin started in ER. -U/S BLE: Rule out DVT::1. Occlusive deep venous thrombosis involves one of the two paired peroneal veins on the right. Additionally, there is partially occlusive superficial venous thrombus within the right lesser saphenous vein. 2. No evidence of left lower extremity deep venous thrombosis. -IV heparin ,will need anticoagulation for [facility] -Hypercoagulable w/u sent -family to decide the kind of Anticoagulation HYPOKALEMIA: K: 3.4 -Replace -Monitor electrolytes ALTERED MENTAL STATUS: Patient with history of altered mental status. CT head negative. Last admission patient with history of some hallucinations. -Continue risperidone -Monitor for delirium/hallucinations CAD S/P STENT: -Continue metoprolol, statin HTN: -Continue lisinopril, metoprolol DYSLIPIDEMIA: -Continue statin DEPRESSION: -Continue Lexapro DVT Prophylaxis -On IV heparin Disposition admit telemetry DNR/DNI as per discussion with pt and daughter Follows with Dr Pope at [facility] for routine care Vital Signs: Date Time Temp Pulse Resp B/P (MAP) Pulse Ox O2 Delivery O2 Flow Rate FiO2 07/07/17 15:47 36.7 73 16 117/69 (85) 97 Room Air 07/07/17 12:00 98 Room Air 07/07/17 08:00 98 Room Air 07/07/17 07:01 36.5 59 16 95/57 (70) 98 Room Air 07/07/17 04:18 36.6 83 16 104/62 (76) 94 Room Air 07/06/17 23:29 37.3 88 18 153/69 (97) 95 Room Air 07/06/17 19:06 36.6 77 18 123/65 (84) 96 Room Air Lab Results: Results Past 24 Hours Test 07/07/17 05:20 Range/Units White Blood Count 11.04 4.8-10.8 K/uL Red Blood Count 3.73 4.2-5.4 M/uL Hemoglobin 10.9 12.0-16.0 g/dL Hematocrit 33.2 37-47 % Mean Corpuscular Volume 89.0 80-100 fL Mean Corpuscular Hemoglobin 29.2 25-34 pg Mean Corpuscular Hemoglobin Concent 32.8 32-36 g/dl RDW Standard Deviation 40.4 36.4-46.3 fL RDW Coefficient of Variation 12.6 11.5-14.5 % Platelet Count 278 130-400 K/uL Mean Platelet Volume 9.1 7.4-10.4 fL Activated Partial Thromboplast Time 62.4 21.0-31.0 SECONDS Partial Thromboplastin Ratio 2.4 Sodium Level 137 136-145 mmol/L Potassium Level 3.4 3.5-5.1 mmol/L Chloride Level 105 98-107 mmol/L Carbon Dioxide Level 24 21-32 mmol/L Anion Gap 8.0 3-11 mmol/L Blood Urea Nitrogen 9 7-18 mg/dl Creatinine 0.75 0.60-1.20 mg/dl Est Creatinine Clear Calc Drug Dose 54.1 ml/min Estimated GFR () 86.0 Estimated GFR (Non- 74.2 BUN/Creatinine Ratio 11.8 10-20 Random Glucose 113 70-99 mg/dl Calcium Level 8.6 8.5-10.1 mg/dl Magnesium Level 1.7 1.8-2.4 mg/dl Microbiology Results 07/06/17 C.difficile Toxin B Gene (PCR) - Final, Complete Positive for C. difficile toxin B gene
[2017-07-07] MEDS: HEPARIN 25,000 UNIT/500ML D5W 500 ML IV SCH (20:15)
[2017-07-07] MEDS: ATORVASTATIN 20 MG TAB PO SCH (20:26)
[2017-07-08] VITALS (9 sets, daily range): BP systolic 104–169; BP diastolic 62–90; PULSE 75–86; TEMP 36.8–37.9; O2SAT 94–98
[2017-07-08] MEDS: AMPICILLIN/SULBACTAM SOD INJ 3,000 MG in SODIUM CHLORIDE 0.9% 100ML 100 ML IV SCH ×4 (01:47→20:29)
[2017-07-08] MEDS: VANCOMYCIN HCL 125 MG/2.5ML SOLN PO SCH ×4 (05:28→23:58)
[2017-07-08] MEDS: RASPBERRY SYRUP 5 ML UDP PO SCH ×4 (05:28→23:58)
[2017-07-08 06:39] LABS: HEMATOCRIT 33.2 % (37-47); HEMOGLOBIN 11.3 g/dL (12.0-16.0); MEAN CELL VOLUME 88.1 fL (80-100); MEAN PLATELET VOLUME 9.7 fL (7.4-10.4); PLATELET COUNT 320 K/uL (130-400); RED CELL DISTRIBUTION WIDTH CV 12.6 % (11.5-14.5); RED CELL DISTRIBUTION WIDTH SD 40.3 fL (36.4-46.3); WHITE BLOOD COUNT 10.49 K/uL (4.8-10.8)
[2017-07-08 06:54] LABS: PTT PATIENT 49.9 SECONDS (21.0-31.0)
[2017-07-08 07:06] LABS: CALCIUM 8.9 mg/dl (8.5-10.1); CREATININE 0.58 mg/dl (0.60-1.20); POTASSIUM 3.3 mmol/L (3.5-5.1)
[2017-07-08] MEDS: SENNA 8.6 MG TAB PO SCH (08:35)
[2017-07-08] MEDS: LISINOPRIL 5 MG TAB PO SCH (08:36)
[2017-07-08] MEDS: ASPIRIN 81 MG ECTAB PO SCH (08:36)
[2017-07-08] MEDS: ESCITALOPRAM OXALATE 10 MG TAB PO SCH (08:37)
[2017-07-08] MEDS: METOPROLOL SUCC 25MG EXT REL TAB PO SCH (08:37)
[2017-07-08] MEDS: LIDODERM (LIDOCAINE) PATCH 5% TD SCH (08:37)
[2017-07-08] MEDS: DOCUSATE SODIUM 100 MG CAP PO SCH (08:38)
[2017-07-08] MEDS: ARTIFICIAL TEARS OP SOLN OPB SCH ×2 (08:38→20:30)
[2017-07-08] MEDS ORDERED: POTASSIUM CHLORIDE 20 MEQ TABCR PO STA (10:53)
[2017-07-08] MEDS ORDERED: MAGNESIUM SULFATE 1GM / D5W 1 GM in PREMIXED IN D5W 100 ML IV ONE (11:15)
--- NOTE | 2017-07-08 11:24 | Clinical Documentation Query ---
CLINICAL DOCUMENTATION QUERY Dr. CHAVEZ, In your clinical opinion is this patient being managed for: ( X ) Possibly Metabolic encephalopathy vs. Delirium on Dementia ( ) Not Agree ( ) Other explanation of clinical findings (Please Explain) ( ) Unable to determine (Please Define) ( ) Need to Discuss The medical record reflects the following clinical findings, treatment, and risk factors. Clinical Indicators: Pt presented with increasing confusion and lethargy. Pt does have a known hx of dementia. Nursing progress notes indicate pt became much more alert and awake on the 3rd day of admission. Found to have UTI and + C diff as well as PE/DVT and rib fractures. CT head negative for acute findings. Treatment: IV unasyn, po vancomycin, IV fluids in ER, IV heparin, CT head Risk Factors: UTI, C diff colitis, preexisting dementia. Please clarify and document your clinical opinion in the progress notes and discharge summary. Terms such as "probable", "suspected", "likely", "questionable", "possible", or "still to be ruled out" are acceptable. IF IN AGREEMENT, YOU MUST DOCUMENT ABOVE DIAGNOSTIC STATEMENT IN DAILY PROGRESS NOTES AND DISCHARGE SUMMARY. This document is not part of the patient's record. Thank You, Shruti Diamond, SANDRA [phone]
[2017-07-08] MEDS ORDERED: NURSING DECISION MEDICATION ORDER SCH (11:30)
[2017-07-08] MEDS ORDERED: MICONAZOLE NITRATE POWDER 43 GM EXT PRN (11:30)
[2017-07-08] MEDS: LACTOBACILLUS ACIDOPHILUS (FLORANEX) TAB PO SCH ×2 (11:33→17:32)
--- NOTE | 2017-07-08 12:24 | Progress Note ---
Subjective Date of Service: Jul 08, 2017. Subjective Pt evaluation today including: conversation w/ patient, physical exam, lab review, review of studies, review of inpatient medication list Saw/examined the patient in room 286. has had multiple episodes of diarrhea this morning. Pleasantly demented. tells me she has no pain, no breathing issues. Problem List Medical Problems: (1) Bilateral pulmonary embolism Status: Acute (2) Closed head injury Status: Acute (3) Fall Status: Acute (4) Falls Status: Acute (5) Rib fractures Status: Acute (6) Symptomatic anemia Status: Acute (7) Urinary tract infection Status: Acute (8) UTI (urinary tract infection) Status: Acute Medications Current Inpatient Medications Medications (Trade) Dose Ordered Sig/Génesis Route Start Time Stop Time Status Last Admin Dose Admin Al Hydrox/Mg Hydrox/Simethicone (Maalox Max Susp) 15 ml Q4H PRN PO 07/04/17 11:30 08/03/17 11:29 Magnesium Hydroxide (Milk Of Magnesia Susp) 30 ml Q12H PRN PO 07/04/17 11:30 08/03/17 11:29 Ondansetron HCl (Zofran Inj) 4 mg Q6H PRN IV 07/04/17 11:30 08/03/17 11:29 07/05/17 03:02 4 MG Nitroglycerin (Nitrostat Tab) 0.4 mg UD PRN SL 07/04/17 11:30 08/03/17 11:29 Polyethylene (Miralax Powder Packet) 17 gm DAILY PRN PO 07/04/17 11:30 08/03/17 11:29 Heparin Sodium/ Dextrose 500 ml @ 20 mls/hr Q24H IV 07/04/17 11:45 08/03/17 11:44 07/07/17 20:15 20 MLS/HR Lidocaine (Lidoderm Patch 5%) 1 patch QAM TD 07/04/17 11:30 08/03/17 11:29 07/08/17 08:37 1 PATCH Miscellaneous (Remove Lidoderm Patch) 1 ea DAILY@21 N/A 07/04/17 21:00 08/03/17 20:59 07/04/17 20:25 1 EA Tramadol HCl (Ultram Tab) 50 mg Q4H PRN PO 07/04/17 11:30 08/03/17 11:29 Future Hold 07/05/17 02:48 50 MG Morphine Sulfate (MoRPHine SULFATE INJ) 1 mg Q4 PRN IV 07/04/17 11:30 07/18/17 11:29 07/07/17 01:39 1 MG Morphine Sulfate (MoRPHine SULFATE INJ) 2 mg Q4 PRN IV 07/04/17 11:30 07/18/17 11:29 Future Hold Aspirin (Ecotrin Tab) 81 mg DAILY PO 07/05/17 09:00 08/04/17 08:59 07/08/17 08:36 81 MG Atorvastatin Calcium (Lipitor Tab) 20 mg QPM PO 07/04/17 21:00 08/03/17 20:59 07/07/17 20:26 20 MG Escitalopram Oxalate (Lexapro Tab) 10 mg QAM PO 07/05/17 09:00 08/04/17 08:59 07/08/17 08:37 10 MG Lisinopril (Zestril Tab) 5 mg DAILY PO 07/05/17 09:00 08/04/17 08:59 07/08/17 08:36 5 MG Metoprolol Succinate (Toprol Xl Tab) 12.5 mg DAILY PO 07/05/17 09:00 08/04/17 08:59 07/08/17 08:37 12.5 MG Risperidone (Risperdal Tab) 0.25 mg DAILY PO 07/05/17 09:00 08/04/17 08:59 Future Hold 07/05/17 09:09 0.25 MG Risperidone (Risperdal Tab) 0.5 mg HS PO 07/04/17 21:00 08/03/17 20:59 Future Hold 07/04/17 20:24 0.5 MG Sodium Chloride ([place] Nasal [place]) 2 sprays HS PRN KAEL 07/04/17 12:30 08/03/17 12:29 Artificial Tears (Artificial Tears) 1 drops BID OPB 07/04/17 21:00 08/03/17 20:59 07/08/17 08:38 1 DROPS Miscellaneous Information (Order Awaiting Action) 1 ea QS N/A 07/04/17 16:00 08/03/17 15:59 07/05/17 16:00 1 EA Ampicillin Sodium/ Sulbactam Sodium 3000 mg/Sodium Chloride 108 ml @ 200 mls/hr Q6H IV 07/06/17 02:00 07/10/17 19:59 07/08/17 08:46 200 MLS/HR Vancomycin HCl (Vancomycin Oral Soln) 125 mg Q6H PO 07/07/17 00:00 07/21/17 00:00 07/08/17 11:59 125 MG Raspberry (Raspberry Syrup 5ml Cup) 5 ml Q6H PO 07/07/17 00:00 07/21/17 00:00 07/08/17 11:34 5 ML Ioversol (Optiray 320) 100 ml UD PRN IV 07/07/17 00:15 07/11/17 00:14 Magnesium Sulfate 1 gm/Prmx 100 ml @ 100 mls/hr 1115 ONCE IV 07/08/17 11:15 07/08/17 12:14 07/08/17 11:33 100 MLS/HR Lactobacillus Acidophilus (Floranex Tab) 4 tab TIDM PO 07/08/17 12:00 08/07/17 11:59 07/08/17 11:33 4 TAB Miconazole Nitrate (Desenex Powder) 1 appln QID EXT 07/08/17 13:00 08/07/17 12:59 Miconazole Nitrate (Desenex Powder) 1 appln PRN PRN EXT 07/08/17 11:30 08/07/17 11:29 Objective Vital Signs Date Time Temp Pulse Resp B/P (MAP) Pulse Ox O2 Delivery O2 Flow Rate FiO2 07/08/17 11:20 36.8 75 16 122/68 (86) 96 Room Air 07/08/17 08:56 Room Air 07/08/17 07:23 37.0 86 16 142/78 (99) 95 Room Air 07/08/17 04:00 36.9 75 16 136/70 (92) 94 Room Air 07/08/17 04:00 Room Air 07/08/17 00:00 37.2 84 18 169/90 (116) 98 Room Air 07/08/17 00:00 Room Air 07/07/17 20:00 97 Room Air 07/07/17 16:00 97 Room Air 07/07/17 15:47 36.7 73 16 117/69 (85) 97 Room Air Physical Exam General Appearance: no apparent distress, + pertinent finding (pleasantly demented) Respiratory/Chest: lungs clear, normal breath sounds, no respiratory distress, no accessory muscle use Cardiovascular: regular rate, rhythm, no edema, no murmur Neurologic/Psychiatric: alert, normal mood/affect, + pertinent finding ( pleasantly demented) Laboratory Results Last 24 Hours Test 07/08/17 06:04 White Blood Count 10.49 K/uL Red Blood Count 3.77 M/uL Hemoglobin 11.3 g/dL Hematocrit 33.2 % Mean Corpuscular Volume 88.1 fL Mean Corpuscular Hemoglobin 30.0 pg Mean Corpuscular Hemoglobin Concent 34.0 g/dl RDW Standard Deviation 40.3 fL RDW Coefficient of Variation 12.6 % Platelet Count 320 K/uL Mean Platelet Volume 9.7 fL Activated Partial Thromboplast Time 49.9 SECONDS Partial Thromboplastin Ratio 1.9 Sodium Level 138 mmol/L Potassium Level 3.3 mmol/L Chloride Level 106 mmol/L Carbon Dioxide Level 25 mmol/L Anion Gap 7.0 mmol/L Blood Urea Nitrogen 8 mg/dl Creatinine 0.58 mg/dl Est Creatinine Clear Calc Drug Dose 70.0 ml/min Estimated GFR () 99.5 Estimated GFR (Non- 85.8 BUN/Creatinine Ratio 13.6 Random Glucose 115 mg/dl Calcium Level 8.9 mg/dl Magnesium Level 1.7 mg/dl Assessment and Plan This is an 82 year old female with a PMH of dementia, multiple falls, CAD s/p stenting, hypertension, hyperlipidemia, depression - presents with fall confusion. Subsequently found to have a UTI; later found to have acute bilateral pulmonary embolism and DVT as well as C. Diff colitis. Acute Bilateral Pulmonary Embolism Acute R sided DVT - patient has been treated appropriately with IV heparin - patient's daughter spoke with me on 07/08 - discussion about aspirin, Coumadin, and NOACs - due to multiple falls, recommendation made against NOACs - would like to discuss with brother prior to decision; continue IV heparin in the meantime - also consulted palliative care for goals of treatment and prevention of future hospitalizations C. Diff colitis - patient currently on oral Vancomycin - diarrhea persistent and significant - will stop all laxatives/stool softeners - unfortunately she was receiving these the past few days - will add lactobacillus - continue oral Vanco - replace electrolytes Enterococcal UTI - enterococcus faecalis grown on urine culture - pansensitive organism - currently on Unasyn - will need around 10 days of treatment Multiple Falls Ambulatory Dysfunction - likely due to dementia, functional decline - PT/OT - supposed to use a walker at baseline, but does not use this due to dementia - may need rehab prior to return to [facility] Traumatic Rib Fracture - secondary to fall - avoiding narcotics if possible - lidocaine patch for pain Metabolic Encephalopathy vs. Delirium on Dementia - patient does have sundowning issues - underlying dementia - possible infectious cause of confusion - seems to be closer to baseline as per daughter CAD s/p stenting - continue b-ayaan, aspirin, statin HTN - low dose Lisinopril and b-ayaan Depression - continue Lexapro DVT ppx - IV heparin DNR/DNI - palliative care consulted - PT/OT ordered - may need rehab prior to discharge back to [facility]
[2017-07-08] MEDS: MICONAZOLE NITRATE POWDER 43 GM EXT SCH ×3 (14:06→20:30)
[2017-07-08] MEDS: ATORVASTATIN 20 MG TAB PO SCH (20:30)
[2017-07-09] VITALS (7 sets, daily range): BP systolic 107–146; BP diastolic 62–71; PULSE 66–83; TEMP 36.8–38.2; O2SAT 95–98
[2017-07-09] MEDS: AMPICILLIN/SULBACTAM SOD INJ 3,000 MG in SODIUM CHLORIDE 0.9% 100ML 100 ML IV SCH ×4 (01:48→20:00)
[2017-07-09] MEDS ORDERED: NSS + 20MEQ KCL 1000ML 1,000 ML IV ONE (03:00)
[2017-07-09] MEDS: ACETAMINOPHEN IV 650 MG in EMPTY BAG 0 ML IV PRN (03:32)
[2017-07-09] MEDS: HEPARIN 25,000 UNIT/500ML D5W 500 ML IV SCH (04:36)
[2017-07-09] MEDS: RASPBERRY SYRUP 5 ML UDP PO SCH ×4 (05:49→23:30)
[2017-07-09] MEDS: VANCOMYCIN HCL 125 MG/2.5ML SOLN PO SCH ×4 (05:49→23:30)
[2017-07-09 07:14] LABS: HEMOGLOBIN 10.4 g/dL (12.0-16.0); MEAN CELL VOLUME 88.2 fL (80-100); MEAN CORPUSCULAR HEMOGLOBIN 30.6 pg (25-34); MEAN CORPUSCULAR HGB CONC 34.7 g/dl (32-36); MEAN PLATELET VOLUME 8.8 fL (7.4-10.4); PLATELET COUNT 278 K/uL (130-400); RED CELL DISTRIBUTION WIDTH CV 12.6 % (11.5-14.5); RED CELL DISTRIBUTION WIDTH SD 40.9 fL (36.4-46.3)
[2017-07-09 07:41] LABS: CALCIUM 8.2 mg/dl (8.5-10.1); CREATININE 0.58 mg/dl (0.60-1.20); POTASSIUM 3.1 mmol/L (3.5-5.1); PTT PATIENT 54.5 SECONDS (21.0-31.0)
[2017-07-09] MEDS ORDERED: POTASSIUM CHLORIDE 20 MEQ TABCR PO STA (07:50)
[2017-07-09] MEDS: ASPIRIN 81 MG ECTAB PO SCH (08:18)
[2017-07-09] MEDS: ESCITALOPRAM OXALATE 10 MG TAB PO SCH (08:18)
[2017-07-09] MEDS: LISINOPRIL 5 MG TAB PO SCH (08:18)
[2017-07-09] MEDS: LIDODERM (LIDOCAINE) PATCH 5% TD SCH (08:19)
[2017-07-09] MEDS: LACTOBACILLUS ACIDOPHILUS (FLORANEX) TAB PO SCH ×3 (08:19→17:11)
[2017-07-09] MEDS: METOPROLOL SUCC 25MG EXT REL TAB PO SCH (08:20)
[2017-07-09] MEDS: MICONAZOLE NITRATE POWDER 43 GM EXT SCH ×4 (08:21→21:00)
[2017-07-09] MEDS: ARTIFICIAL TEARS OP SOLN OPB SCH ×2 (08:21→21:00)
[2017-07-09] MEDS: POTASSIUM CHLR 10 MEQ / WTR 10 MEQ in PREMIXED WATER 100 ML IV SCH ×2 (08:46→11:02)
[2017-07-09] MEDS: POTASSIUM CHLORIDE 20 MEQ TABCR PO SCH ×2 (08:47→21:00)
--- NOTE | 2017-07-09 16:52 | Progress Note ---
Subjective Date of Service: Jul 09, 2017. Subjective Pt evaluation today including: conversation w/ patient, physical exam, lab review, review of studies, review of inpatient medication list Saw/examined the patient in room 286 pleasantly demented No acute issues to note, does not appear in any respiratory distress Problem List Medical Problems: (1) Bilateral pulmonary embolism Status: Acute (2) Closed head injury Status: Acute (3) Fall Status: Acute (4) Falls Status: Acute (5) Rib fractures Status: Acute (6) Symptomatic anemia Status: Acute (7) Urinary tract infection Status: Acute (8) UTI (urinary tract infection) Status: Acute Medications Current Inpatient Medications Medications (Trade) Dose Ordered Sig/Génesis Route Start Time Stop Time Status Last Admin Dose Admin Al Hydrox/Mg Hydrox/Simethicone (Maalox Max Susp) 15 ml Q4H PRN PO 07/04/17 11:30 08/03/17 11:29 Magnesium Hydroxide (Milk Of Magnesia Susp) 30 ml Q12H PRN PO 07/04/17 11:30 08/03/17 11:29 Ondansetron HCl (Zofran Inj) 4 mg Q6H PRN IV 07/04/17 11:30 08/03/17 11:29 07/05/17 03:02 4 MG Nitroglycerin (Nitrostat Tab) 0.4 mg UD PRN SL 07/04/17 11:30 08/03/17 11:29 Polyethylene (Miralax Powder Packet) 17 gm DAILY PRN PO 07/04/17 11:30 08/03/17 11:29 Heparin Sodium/ Dextrose 500 ml @ 20 mls/hr Q24H IV 07/04/17 11:45 08/03/17 11:44 07/09/17 04:36 20 MLS/HR Lidocaine (Lidoderm Patch 5%) 1 patch QAM TD 07/04/17 11:30 08/03/17 11:29 07/09/17 08:19 1 PATCH Miscellaneous (Remove Lidoderm Patch) 1 ea DAILY@21 N/A 07/04/17 21:00 08/03/17 20:59 07/08/17 20:30 1 EA Tramadol HCl (Ultram Tab) 50 mg Q4H PRN PO 07/04/17 11:30 08/03/17 11:29 Future Hold 07/05/17 02:48 50 MG Morphine Sulfate (MoRPHine SULFATE INJ) 1 mg Q4 PRN IV 07/04/17 11:30 07/18/17 11:29 07/07/17 01:39 1 MG Morphine Sulfate (MoRPHine SULFATE INJ) 2 mg Q4 PRN IV 07/04/17 11:30 07/18/17 11:29 Future Hold Aspirin (Ecotrin Tab) 81 mg DAILY PO 07/05/17 09:00 08/04/17 08:59 07/09/17 08:18 81 MG Atorvastatin Calcium (Lipitor Tab) 20 mg QPM PO 07/04/17 21:00 08/03/17 20:59 07/08/17 20:30 20 MG Escitalopram Oxalate (Lexapro Tab) 10 mg QAM PO 07/05/17 09:00 08/04/17 08:59 07/09/17 08:18 10 MG Lisinopril (Zestril Tab) 5 mg DAILY PO 07/05/17 09:00 08/04/17 08:59 07/09/17 08:18 5 MG Metoprolol Succinate (Toprol Xl Tab) 12.5 mg DAILY PO 07/05/17 09:00 08/04/17 08:59 07/09/17 08:20 12.5 MG Risperidone (Risperdal Tab) 0.25 mg DAILY PO 07/05/17 09:00 08/04/17 08:59 Future Hold 07/05/17 09:09 0.25 MG Risperidone (Risperdal Tab) 0.5 mg HS PO 07/04/17 21:00 08/03/17 20:59 Future Hold 07/04/17 20:24 0.5 MG Sodium Chloride ([place] Nasal [place]) 2 sprays HS PRN KAEL 07/04/17 12:30 08/03/17 12:29 Artificial Tears (Artificial Tears) 1 drops BID OPB 07/04/17 21:00 08/03/17 20:59 07/09/17 08:21 1 DROPS Miscellaneous Information (Order Awaiting Action) 1 ea QS N/A 07/04/17 16:00 08/03/17 15:59 07/05/17 16:00 1 EA Ampicillin Sodium/ Sulbactam Sodium 3000 mg/Sodium Chloride 108 ml @ 200 mls/hr Q6H IV 07/06/17 02:00 07/10/17 19:59 07/09/17 13:42 200 MLS/HR Vancomycin HCl (Vancomycin Oral Soln) 125 mg Q6H PO 07/07/17 00:00 07/21/17 00:00 07/09/17 11:58 125 MG Raspberry (Raspberry Syrup 5ml Cup) 5 ml Q6H PO 07/07/17 00:00 07/21/17 00:00 07/09/17 11:59 5 ML Ioversol (Optiray 320) 100 ml UD PRN IV 07/07/17 00:15 07/11/17 00:14 Lactobacillus Acidophilus (Floranex Tab) 4 tab TIDM PO 07/08/17 12:00 08/07/17 11:59 07/09/17 11:59 4 TAB Miconazole Nitrate (Desenex Powder) 1 appln QID EXT 07/08/17 13:00 08/07/17 12:59 07/09/17 08:21 1 APPLN Miconazole Nitrate (Desenex Powder) 1 appln PRN PRN EXT 07/08/17 11:30 08/07/17 11:29 Acetaminophen 650 mg/Empty Bag 65 ml @ 260 mls/hr Q6H PRN IV 07/09/17 03:00 08/08/17 02:59 07/09/17 03:32 260 MLS/HR Potassium Chloride/Sodium Chloride 1,000 ml @ 60 mls/hr [id number] ONCE IV 07/09/17 03:00 07/09/17 19:39 07/09/17 03:32 60 MLS/HR Potassium Chloride (Klor-Con Tab) 20 meq BID PO 07/09/17 09:00 08/08/17 08:59 07/09/17 08:47 20 MEQ Objective Vital Signs Date Time Temp Pulse Resp B/P (MAP) Pulse Ox O2 Delivery O2 Flow Rate FiO2 07/09/17 15:27 37.3 76 18 146/71 (96) 95 07/09/17 13:42 37.0 73 16 122/69 (86) 96 Room Air 07/09/17 12:21 Room Air 07/09/17 08:50 Room Air 07/09/17 07:26 36.8 66 16 115/65 (82) 95 Room Air 07/09/17 05:36 36.9 07/09/17 04:40 Room Air 07/09/17 02:40 38.2 83 16 107/62 (77) 97 Room Air 07/09/17 00:00 Room Air 07/08/17 23:43 37.9 86 16 104/62 (76) 96 Room Air 07/08/17 20:28 37.0 82 18 127/68 (87) 97 Room Air 07/08/17 20:00 97 Room Air Physical Exam General Appearance: no apparent distress Respiratory/Chest: no respiratory distress, no accessory muscle use Cardiovascular: regular rate, rhythm, no edema, no murmur Abdomen: normal bowel sounds, non tender, soft Laboratory Results Last 24 Hours Test 07/09/17 06:55 White Blood Count 11.30 K/uL Red Blood Count 3.40 M/uL Hemoglobin 10.4 g/dL Hematocrit 30.0 % Mean Corpuscular Volume 88.2 fL Mean Corpuscular Hemoglobin 30.6 pg Mean Corpuscular Hemoglobin Concent 34.7 g/dl RDW Standard Deviation 40.9 fL RDW Coefficient of Variation 12.6 % Platelet Count 278 K/uL Mean Platelet Volume 8.8 fL Activated Partial Thromboplast Time 54.5 SECONDS Partial Thromboplastin Ratio 2.1 Sodium Level 139 mmol/L Potassium Level 3.1 mmol/L Chloride Level 106 mmol/L Carbon Dioxide Level 25 mmol/L Anion Gap 7.0 mmol/L Blood Urea Nitrogen 5 mg/dl Creatinine 0.58 mg/dl Est Creatinine Clear Calc Drug Dose 70.0 ml/min Estimated GFR () 99.5 Estimated GFR (Non- 85.8 BUN/Creatinine Ratio 8.8 Random Glucose 102 mg/dl Calcium Level 8.2 mg/dl Magnesium Level 1.8 mg/dl Assessment and Plan This is an 82 year old female with a PMH of dementia, multiple falls, CAD s/p stenting, hypertension, hyperlipidemia, depression - presents with fall confusion. Subsequently found to have a UTI; later found to have acute bilateral pulmonary embolism and DVT as well as C. Diff colitis. Acute Bilateral Pulmonary Embolism Acute R sided DVT 07/09 - family to decide on anticoagulation - palliative care consultation pending - may need home hospice 07/08 - patient has been treated appropriately with IV heparin - patient's daughter spoke with me on 07/08 - discussion about aspirin, Coumadin, and NOACs - due to multiple falls, recommendation made against NOACs - would like to discuss with brother prior to decision; continue IV heparin in the meantime - also consulted palliative care for goals of treatment and prevention of future hospitalizations C. Diff colitis - patient currently on oral Vancomycin - diarrhea persistent and significant - will stop all laxatives/stool softeners - unfortunately she was receiving these the past few days - will add lactobacillus - continue oral Vanco - replace electrolytes Enterococcal UTI - enterococcus faecalis grown on urine culture - pansensitive organism - currently on Unasyn - will need around 10 days of treatment Multiple Falls Ambulatory Dysfunction - likely due to dementia, functional decline - PT/OT - supposed to use a walker at baseline, but does not use this due to dementia - may need rehab prior to return to [facility] Traumatic Rib Fracture - secondary to fall - avoiding narcotics if possible - lidocaine patch for pain Metabolic Encephalopathy vs. Delirium on Dementia - patient does have sundowning issues - underlying dementia - possible infectious cause of confusion - seems to be closer to baseline as per daughter CAD s/p stenting - continue b-ayaan, aspirin, statin HTN - low dose Lisinopril and b-ayaan Depression - continue Lexapro DVT ppx - IV heparin DNR/DNI - palliative care consulted - PT/OT ordered - may need rehab prior to discharge back to [facility]
[2017-07-09] MEDS: ATORVASTATIN 20 MG TAB PO SCH (21:00)
[2017-07-10] VITALS (8 sets, daily range): BP systolic 135–168; BP diastolic 63–83; PULSE 68–84; TEMP 36.6–37.2; O2SAT 96–98
[2017-07-10] MEDS: AMPICILLIN/SULBACTAM SOD INJ 3,000 MG in SODIUM CHLORIDE 0.9% 100ML 100 ML IV SCH ×4 (03:15→22:28)
[2017-07-10] MEDS ORDERED: POTASSIUM CHLORIDE 10 MEQ TABCR PO STA (04:34)
[2017-07-10] MEDS ORDERED: METOPROLOL SUCC 25MG EXT REL TAB PO ONE (04:35)
[2017-07-10] MEDS ORDERED: MAGNESIUM SULFATE 1GM / D5W 1 GM in PREMIXED IN D5W 100 ML IV ONE (04:45)
[2017-07-10 05:07] LABS: BASO % 0.1 %; BASO ABS # 0.01 K/uL (0-0.2); EOS % 2.1 %; EOS ABS # 0.24 K/uL (0-0.5); HEMATOCRIT 33.4 % (37-47); HEMOGLOBIN 11.5 g/dL (12.0-16.0); IG# 0.05 K/uL (0.00-0.02); LYMPH % 11.1 %; LYMPH ABS # 1.25 K/uL (1.2-3.4); MEAN CELL VOLUME 87.9 fL (80-100); MEAN CORPUSCULAR HEMOGLOBIN 30.3 pg (25-34); MEAN CORPUSCULAR HGB CONC 34.4 g/dl (32-36); MEAN PLATELET VOLUME 8.4 fL (7.4-10.4); MONO % 6.8 %; MONO ABS # 0.77 K/uL (0.11-0.59); NEUT % 79.5 %; NEUT ABS # 8.96 K/uL (1.4-6.5); PLATELET COUNT 298 K/uL (130-400); RED CELL DISTRIBUTION WIDTH CV 12.7 % (11.5-14.5); RED CELL DISTRIBUTION WIDTH SD 40.7 fL (36.4-46.3); WHITE BLOOD COUNT 11.28 K/uL (4.8-10.8)
[2017-07-10 05:29] LABS: PTT PATIENT 53.5 SECONDS (21.0-31.0)
[2017-07-10 05:32] LABS: ALBUMIN 2.1 gm/dl (3.4-5.0); CALCIUM 8.7 mg/dl (8.5-10.1); CREATININE 0.58 mg/dl (0.60-1.20); POTASSIUM 3.5 mmol/L (3.5-5.1)
[2017-07-10 05:34] LABS: TOTAL PROTEIN 5.8 gm/dl (6.4-8.2)
[2017-07-10] MEDS: RASPBERRY SYRUP 5 ML UDP PO SCH ×4 (05:34→23:49)
[2017-07-10] MEDS: VANCOMYCIN HCL 125 MG/2.5ML SOLN PO SCH ×4 (05:34→23:49)
--- NOTE | 2017-07-10 07:01 | DIAGNOSTIC IMAGING REPORT ---
CHEST ONE VIEW PORTABLE CLINICAL HISTORY: SOB dyspnea COMPARISON STUDY: 07/04/2017 FINDINGS: Mild stable cardiomegaly. Chronic prominence pulmonary vasculature. Trace pleural fluid left base. No evidence pneumothorax. The left sided rib fracture is not appreciated currently most likely secondary to patient position. No evidence pneumothorax. IMPRESSION: Mild stable cardiomegaly. Chronic prominence pulmonary vasculature. Small left effusion. The above report was generated using voice recognition software. It may contain grammatical, syntax or spelling errors. Electronically signed by: Quinn Busch M.D. 07/10/2017 7:00 AM Dictated Date/Time: 07/10/2017 6:59 AM
[2017-07-10] MEDS: HEPARIN 25,000 UNIT/500ML D5W 500 ML IV SCH ×2 (07:16→08:27)
[2017-07-10] MEDS: LACTOBACILLUS ACIDOPHILUS (FLORANEX) TAB PO SCH ×3 (08:11→17:00)
[2017-07-10] MEDS: LISINOPRIL 5 MG TAB PO SCH (08:11)
[2017-07-10] MEDS: ESCITALOPRAM OXALATE 10 MG TAB PO SCH (08:11)
[2017-07-10] MEDS: ASPIRIN 81 MG ECTAB PO SCH (08:12)
[2017-07-10] MEDS: POTASSIUM CHLORIDE 20 MEQ TABCR PO SCH ×2 (08:12→22:37)
[2017-07-10] MEDS: LIDODERM (LIDOCAINE) PATCH 5% TD SCH (08:13)
[2017-07-10] MEDS: ARTIFICIAL TEARS OP SOLN OPB SCH ×2 (08:14→22:29)
[2017-07-10] MEDS: MICONAZOLE NITRATE POWDER 43 GM EXT SCH ×4 (08:14→22:29)
--- NOTE | 2017-07-10 13:34 | Palliative Care Consultation ---
Consultation Date of Consultation: Jul 10, 2017. Requesting Physician: Dr. Carlson Attending Physician: Dr. Carlson Reason for Consultation: Goals of care History of Present Illness This patient is a pleasantly confused 82 year old female with a PMH of dementia , multiple falls, and CAD. Pt has a PE and DVT and the patient is currently on IV Heparin drip for management. In discussion with the patients daughter, they would not like to pursue oral anticoagulation aside from Aspirin.Pt is a patient at [facility]. She was recently at [facility], but it appears that she does require additional support from skilled services. She has been doing rather well, per her daughter, Lindsey. Pt daughter expresses that her goal is to return to [facility], but does understand that her Mom does require increased services. We did discuss that with dementia, even with rehabilitation , her cognitive restrictions may not allow for her to follow through with rehab recommendations. We did discuss a POLST form and confirmed the patient is DNR; however, a POLST form was not filled out as the family was not here. Pt son is in [place]. Upon assessment of the patient, she was sitting in the chair in no acute distress, eating her lunch. She denies any pain or difficulties. She was able to tell me her name, where she was and the year; however, was not able to express the extent and need of her current hospitalization. Based on her extensive fall history, I believe that she would benefit most from skilled services. Case Management Nannette made aware of our conversation and will contact Nan to discuss costs, facility availability etc. Social History Smoking Status: Never Smoker History of Alcohol Use: No Drug Use: none Marital Status: Housing Status: other ([facility]) Occupation Status: retired Review of Systems Constitutional: No see HPI, No fever, No chills, No sweats, No weight loss, No weakness, No fatigue, No problem reported Eyes: No see HPI, No worsening of vision, No eye pain, No redness, No discharge , No diplopia, No problem reported ENT: No see HPI, No hearing loss, No unusual epistaxis, No nasal symptoms, No sore throat, No tinnitus, No dental problems, No trouble swallowing, No problem reported Respiratory: No see HPI, No cough, No sputum, No wheezing, No shortness of breath, No dyspnea on exertion, No dyspnea at rest, No hemoptysis, No problem reported Cardiac: No see HPI, No chest pain, No orthopnea, No PND, No edema, No claudication, No palpitations, No problem reported Breast: No see HPI, No breast lump, No change in shape, No nipple discharge, No breast pain, No problem reported Abdomen: No see HPI, No pain, No nausea, No vomiting, No diarrhea, No constipation, No GI bleeding, No problem reported Musculoskeletal: No see HPI, No joint pain, No muscle pain, No swelling, No calf pain, No problem reported Female : No see HPI, No dysuria, No urinary frequency, No hematuria, No incontinence, No abnormal vaginal bleeding, No vaginal discharge, No problem reported Neurologic: No see HPI, No memory loss, No paralysis, No weakness, No numbness/ tingling, No vertigo, No balance problems, No problem reported Psychiatric: No see HPI, No depression symptoms, No anhedonism, No anxiety, No insomnia, No substance abuse, No problem reported Heme: No see HPI, No abnormal bleeding/bruising, No clotting problems, No swollen lymph nodes, No night sweats, No problem reported Endo: No see HPI, No fatigue, No excessive thirst, No excessive urination, No problem reported Skin: No see HPI, No rash, No itch, No new/changing skin lesions, No color change, No bleeding, No problem reported Allergies Coded Allergies: Acetaminophen (Verified Allergy, Unknown, unknown, 07/04/17) Ciprofloxacin (Verified Allergy, Unknown, UNKNOWN, 07/04/17) Hydrocodone (Verified Allergy, Unknown, unknown, 07/04/17) Latex1 -Allergic Contact Dermititis (Verified Allergy, Unknown, unknown, ) Magnesium Salicylate (Verified Allergy, Unknown, UNKNOWN, 07/04/17) Sulfa Antibiotics (Verified Allergy, Unknown, UNKNOWN, 07/04/17) Sulfamethoxazole w/Trimethoprim (Verified Allergy, Unknown, UNKNOWN, ) Tetanus Toxoid (Verified Allergy, Unknown, unknown, 07/04/17) Medications Current Inpatient Medications Medications (Trade) Dose Ordered Sig/Génesis Route Start Time Stop Time Status Last Admin Dose Admin Al Hydrox/Mg Hydrox/Simethicone (Maalox Max Susp) 15 ml Q4H PRN PO 07/04/17 11:30 08/03/17 11:29 Magnesium Hydroxide (Milk Of Magnesia Susp) 30 ml Q12H PRN PO 07/04/17 11:30 08/03/17 11:29 Ondansetron HCl (Zofran Inj) 4 mg Q6H PRN IV 07/04/17 11:30 08/03/17 11:29 07/05/17 03:02 4 MG Nitroglycerin (Nitrostat Tab) 0.4 mg UD PRN SL 07/04/17 11:30 08/03/17 11:29 Polyethylene (Miralax Powder Packet) 17 gm DAILY PRN PO 07/04/17 11:30 08/03/17 11:29 Heparin Sodium/ Dextrose 500 ml @ 20 mls/hr Q24H IV 07/04/17 11:45 08/03/17 11:44 07/10/17 08:27 20 MLS/HR Lidocaine (Lidoderm Patch 5%) 1 patch QAM TD 07/04/17 11:30 08/03/17 11:29 07/10/17 08:13 1 PATCH Miscellaneous (Remove Lidoderm Patch) 1 ea DAILY@21 N/A 07/04/17 21:00 08/03/17 20:59 07/08/17 20:30 1 EA Tramadol HCl (Ultram Tab) 50 mg Q4H PRN PO 07/04/17 11:30 08/03/17 11:29 Future Hold 07/05/17 02:48 50 MG Morphine Sulfate (MoRPHine SULFATE INJ) 1 mg Q4 PRN IV 07/04/17 11:30 07/18/17 11:29 07/07/17 01:39 1 MG Morphine Sulfate (MoRPHine SULFATE INJ) 2 mg Q4 PRN IV 07/04/17 11:30 07/18/17 11:29 Future Hold Aspirin (Ecotrin Tab) 81 mg DAILY PO 07/05/17 09:00 08/04/17 08:59 07/10/17 08:12 81 MG Atorvastatin Calcium (Lipitor Tab) 20 mg QPM PO 07/04/17 21:00 08/03/17 20:59 07/08/17 20:30 20 MG Escitalopram Oxalate (Lexapro Tab) 10 mg QAM PO 07/05/17 09:00 08/04/17 08:59 07/10/17 08:11 10 MG Lisinopril (Zestril Tab) 5 mg DAILY PO 07/05/17 09:00 08/04/17 08:59 07/10/17 08:11 5 MG Risperidone (Risperdal Tab) 0.25 mg DAILY PO 07/05/17 09:00 08/04/17 08:59 Future Hold 07/05/17 09:09 0.25 MG Risperidone (Risperdal Tab) 0.5 mg HS PO 07/04/17 21:00 08/03/17 20:59 Future Hold 07/04/17 20:24 0.5 MG Sodium Chloride ([place] Nasal [place]) 2 sprays HS PRN KAEL 07/04/17 12:30 08/03/17 12:29 Artificial Tears (Artificial Tears) 1 drops BID OPB 07/04/17 21:00 08/03/17 20:59 07/10/17 08:14 1 DROPS Miscellaneous Information (Order Awaiting Action) 1 ea QS N/A 07/04/17 16:00 08/03/17 15:59 07/05/17 16:00 1 EA Ampicillin Sodium/ Sulbactam Sodium 3000 mg/Sodium Chloride 108 ml @ 200 mls/hr Q6H IV 07/06/17 02:00 07/10/17 19:59 07/10/17 13:00 200 MLS/HR Vancomycin HCl (Vancomycin Oral Soln) 125 mg Q6H PO 07/07/17 00:00 07/21/17 00:00 07/10/17 12:59 125 MG Raspberry (Raspberry Syrup 5ml Cup) 5 ml Q6H PO 07/07/17 00:00 07/21/17 00:00 07/10/17 12:59 5 ML Ioversol (Optiray 320) 100 ml UD PRN IV 07/07/17 00:15 07/11/17 00:14 Lactobacillus Acidophilus (Floranex Tab) 4 tab TIDM PO 07/08/17 12:00 08/07/17 11:59 07/10/17 13:00 4 TAB Miconazole Nitrate (Desenex Powder) 1 appln QID EXT 07/08/17 13:00 08/07/17 12:59 07/10/17 13:00 1 APPLN Miconazole Nitrate (Desenex Powder) 1 appln PRN PRN EXT 07/08/17 11:30 08/07/17 11:29 Acetaminophen 650 mg/Empty Bag 65 ml @ 260 mls/hr Q6H PRN IV 07/09/17 03:00 08/08/17 02:59 07/09/17 03:32 260 MLS/HR Potassium Chloride (Klor-Con Tab) 20 meq BID PO 07/09/17 09:00 08/08/17 08:59 07/10/17 08:12 20 MEQ Metoprolol Succinate (Toprol Xl Tab) 12.5 mg DAILY PO 07/11/17 09:00 08/04/17 08:59 Physical Exam Date Time Temp Pulse Resp B/P (MAP) Pulse Ox O2 Delivery O2 Flow Rate FiO2 07/10/17 13:13 Room Air 07/10/17 11:22 36.8 71 18 135/70 (91) 96 Room Air 07/10/17 08:00 Room Air 07/10/17 07:26 36.9 72 18 150/79 (102) 96 Room Air 07/10/17 04:13 36.6 68 18 152/72 (98) 98 Room Air 07/10/17 04:00 Room Air 07/10/17 00:00 Room Air 07/09/17 23:28 37.1 74 16 127/70 (89) 98 Room Air 07/09/17 16:00 Room Air 07/09/17 15:27 37.3 76 18 146/71 (96) 95 07/09/17 13:42 37.0 73 16 122/69 (86) 96 Room Air General Appearance: no apparent distress Eyes: PERRL Respiratory: lungs clear, normal breath sounds, no respiratory distress Cardiovascular: regular rate, rhythm, no edema Abdomen: normal bowel sounds, non tender, soft Skin: normal color Laboratory Results Last 24 Hours Test 07/09/17 20:55 07/10/17 04:54 Lactic Acid Level 1.0 mmol/L White Blood Count 11.28 K/uL Red Blood Count 3.80 M/uL Hemoglobin 11.5 g/dL Hematocrit 33.4 % Mean Corpuscular Volume 87.9 fL Mean Corpuscular Hemoglobin 30.3 pg Mean Corpuscular Hemoglobin Concent 34.4 g/dl Platelet Count 298 K/uL Mean Platelet Volume 8.4 fL Neutrophils (%) (Auto) 79.5 % Lymphocytes (%) (Auto) 11.1 % Monocytes (%) (Auto) 6.8 % Eosinophils (%) (Auto) 2.1 % Basophils (%) (Auto) 0.1 % Neutrophils # (Auto) 8.96 K/uL Lymphocytes # (Auto) 1.25 K/uL Monocytes # (Auto) 0.77 K/uL Eosinophils # (Auto) 0.24 K/uL Basophils # (Auto) 0.01 K/uL RDW Standard Deviation 40.7 fL RDW Coefficient of Variation 12.7 % Immature Granulocyte % (Auto) 0.4 % Immature Granulocyte # (Auto) 0.05 K/uL Activated Partial Thromboplast Time 53.5 SECONDS Partial Thromboplastin Ratio 2.1 Sodium Level 138 mmol/L Potassium Level 3.5 mmol/L Chloride Level 106 mmol/L Carbon Dioxide Level 25 mmol/L Anion Gap 7.0 mmol/L Blood Urea Nitrogen 4 mg/dl Creatinine 0.58 mg/dl Est Creatinine Clear Calc Drug Dose 70.0 ml/min Estimated GFR () 99.5 Estimated GFR (Non- 85.8 BUN/Creatinine Ratio 6.7 Random Glucose 99 mg/dl Calcium Level 8.7 mg/dl Magnesium Level 1.9 mg/dl Total Bilirubin 0.6 mg/dl Aspartate Amino Transf (AST/SGOT) 106 U/L Alanine Aminotransferase (ALT/SGPT) 102 U/L Alkaline Phosphatase 96 U/L Total Protein 5.8 gm/dl Albumin 2.1 gm/dl Globulin 3.7 gm/dl Albumin/Globulin Ratio 0.6 Procalcitonin 0.10 ng/ml Assessment & Plan Palliative Performance Scale: 50 % Dementia CAD PE Goals of Care -Code Status- Remain DNR -Discharge planning Extensive discussion held with patients daughter. I believe the patient requires more services than personal care and would recommend she transfer to a SNF with rehab services and the patients daughter is on board with this she just wants to talk with her brother first. Thank you kindly for allowing Palliative Care to participate in this patients care. We will be available for family support as needed and will follow up accordingly. More than 50 minutes spent with patient and 75% of that time was discussing goals of care with patients daughter.
--- NOTE | 2017-07-10 19:36 | Progress Note ---
Subjective Date of Service: Jul 10, 2017. Subjective Pt evaluation today including: conversation w/ patient, conversation w/ family , physical exam, lab review, review of studies, conversation w/ jd edwards consultant, review of inpatient medication list Saw/examined the patient in room 286 No problems/issues at this time she is more alert today, conversing well; underlying dementia spoke with daughter, family has decided not to do anticoagulation spoke with palliative care - patient is DNR, POLST form signed would like to go to SNF prior to [facility] Problem List Medical Problems: (1) Bilateral pulmonary embolism Status: Acute (2) Closed head injury Status: Acute (3) Fall Status: Acute (4) Falls Status: Acute (5) Rib fractures Status: Acute (6) Symptomatic anemia Status: Acute (7) Urinary tract infection Status: Acute (8) UTI (urinary tract infection) Status: Acute Medications Current Inpatient Medications Medications (Trade) Dose Ordered Sig/Génesis Route Start Time Stop Time Status Last Admin Dose Admin Al Hydrox/Mg Hydrox/Simethicone (Maalox Max Susp) 15 ml Q4H PRN PO 07/04/17 11:30 08/03/17 11:29 Magnesium Hydroxide (Milk Of Magnesia Susp) 30 ml Q12H PRN PO 07/04/17 11:30 08/03/17 11:29 Ondansetron HCl (Zofran Inj) 4 mg Q6H PRN IV 07/04/17 11:30 08/03/17 11:29 07/05/17 03:02 4 MG Nitroglycerin (Nitrostat Tab) 0.4 mg UD PRN SL 07/04/17 11:30 08/03/17 11:29 Polyethylene (Miralax Powder Packet) 17 gm DAILY PRN PO 07/04/17 11:30 08/03/17 11:29 Heparin Sodium/ Dextrose 500 ml @ 20 mls/hr Q24H IV 07/04/17 11:45 08/03/17 11:44 07/10/17 08:27 20 MLS/HR Lidocaine (Lidoderm Patch 5%) 1 patch QAM TD 07/04/17 11:30 08/03/17 11:29 07/10/17 08:13 1 PATCH Miscellaneous (Remove Lidoderm Patch) 1 ea DAILY@21 N/A 07/04/17 21:00 08/03/17 20:59 07/08/17 20:30 1 EA Tramadol HCl (Ultram Tab) 50 mg Q4H PRN PO 07/04/17 11:30 08/03/17 11:29 Future Hold 07/05/17 02:48 50 MG Morphine Sulfate (MoRPHine SULFATE INJ) 1 mg Q4 PRN IV 07/04/17 11:30 07/18/17 11:29 07/07/17 01:39 1 MG Morphine Sulfate (MoRPHine SULFATE INJ) 2 mg Q4 PRN IV 07/04/17 11:30 07/18/17 11:29 Future Hold Aspirin (Ecotrin Tab) 81 mg DAILY PO 07/05/17 09:00 08/04/17 08:59 07/10/17 08:12 81 MG Atorvastatin Calcium (Lipitor Tab) 20 mg QPM PO 07/04/17 21:00 08/03/17 20:59 07/08/17 20:30 20 MG Escitalopram Oxalate (Lexapro Tab) 10 mg QAM PO 07/05/17 09:00 08/04/17 08:59 07/10/17 08:11 10 MG Lisinopril (Zestril Tab) 5 mg DAILY PO 07/05/17 09:00 08/04/17 08:59 07/10/17 08:11 5 MG Risperidone (Risperdal Tab) 0.25 mg DAILY PO 07/05/17 09:00 08/04/17 08:59 Future Hold 07/05/17 09:09 0.25 MG Risperidone (Risperdal Tab) 0.5 mg HS PO 07/04/17 21:00 08/03/17 20:59 Future Hold 07/04/17 20:24 0.5 MG Sodium Chloride ([place]ico Nasal [place]) 2 sprays HS PRN KAEL 07/04/17 12:30 08/03/17 12:29 Artificial Tears (Artificial Tears) 1 drops BID OPB 07/04/17 21:00 08/03/17 20:59 07/10/17 08:14 1 DROPS Miscellaneous Information (Order Awaiting Action) 1 ea QS N/A 07/04/17 16:00 08/03/17 15:59 07/05/17 16:00 1 EA Ampicillin Sodium/ Sulbactam Sodium 3000 mg/Sodium Chloride 108 ml @ 200 mls/hr Q6H IV 3/25/18 02:00 07/16/17 01:59 07/10/17 13:00 200 MLS/HR Vancomycin HCl (Vancomycin Oral Soln) 125 mg Q6H PO 07/07/17 00:00 07/21/17 00:00 07/10/17 18:37 125 MG Raspberry (Raspberry Syrup 5ml Cup) 5 ml Q6H PO 07/07/17 00:00 07/21/17 00:00 07/10/17 18:37 5 ML Ioversol (Optiray 320) 100 ml UD PRN IV 07/07/17 00:15 07/11/17 00:14 Lactobacillus Acidophilus (Floranex Tab) 4 tab TIDM PO 07/08/17 12:00 08/07/17 11:59 07/10/17 13:00 4 TAB Miconazole Nitrate (Desenex Powder) 1 appln QID EXT 07/08/17 13:00 08/07/17 12:59 07/10/17 18:37 1 APPLN Miconazole Nitrate (Desenex Powder) 1 appln PRN PRN EXT 07/08/17 11:30 08/07/17 11:29 Acetaminophen 650 mg/Empty Bag 65 ml @ 260 mls/hr Q6H PRN IV 07/09/17 03:00 08/08/17 02:59 07/09/17 03:32 260 MLS/HR Potassium Chloride (Klor-Con Tab) 20 meq BID PO 07/09/17 09:00 08/08/17 08:59 07/10/17 08:12 20 MEQ Metoprolol Succinate (Toprol Xl Tab) 12.5 mg DAILY PO 07/11/17 09:00 08/04/17 08:59 Objective Vital Signs Date Time Temp Pulse Resp B/P (MAP) Pulse Ox O2 Delivery O2 Flow Rate FiO2 07/10/17 15:42 36.7 68 18 149/74 (99) 96 Room Air 07/10/17 13:13 Room Air 07/10/17 11:22 36.8 71 18 135/70 (91) 96 Room Air 07/10/17 08:00 Room Air 07/10/17 07:26 36.9 72 18 150/79 (102) 96 Room Air 07/10/17 04:13 36.6 68 18 152/72 (98) 98 Room Air 07/10/17 04:00 Room Air 07/10/17 00:00 Room Air 07/09/17 23:28 37.1 74 16 127/70 (89) 98 Room Air Physical Exam General Appearance: no apparent distress, + pertinent finding (underlying dementia) Respiratory/Chest: chest non-tender, lungs clear, normal breath sounds, no respiratory distress, no accessory muscle use Cardiovascular: regular rate, rhythm, no edema, no murmur Extremities: normal inspection, no pedal edema Laboratory Results Last 24 Hours Test 07/09/17 20:55 07/10/17 04:54 Lactic Acid Level 1.0 mmol/L White Blood Count 11.28 K/uL Red Blood Count 3.80 M/uL Hemoglobin 11.5 g/dL Hematocrit 33.4 % Mean Corpuscular Volume 87.9 fL Mean Corpuscular Hemoglobin 30.3 pg Mean Corpuscular Hemoglobin Concent 34.4 g/dl Platelet Count 298 K/uL Mean Platelet Volume 8.4 fL Neutrophils (%) (Auto) 79.5 % Lymphocytes (%) (Auto) 11.1 % Monocytes (%) (Auto) 6.8 % Eosinophils (%) (Auto) 2.1 % Basophils (%) (Auto) 0.1 % Neutrophils # (Auto) 8.96 K/uL Lymphocytes # (Auto) 1.25 K/uL Monocytes # (Auto) 0.77 K/uL Eosinophils # (Auto) 0.24 K/uL Basophils # (Auto) 0.01 K/uL RDW Standard Deviation 40.7 fL RDW Coefficient of Variation 12.7 % Immature Granulocyte % (Auto) 0.4 % Immature Granulocyte # (Auto) 0.05 K/uL Activated Partial Thromboplast Time 53.5 SECONDS Partial Thromboplastin Ratio 2.1 Sodium Level 138 mmol/L Potassium Level 3.5 mmol/L Chloride Level 106 mmol/L Carbon Dioxide Level 25 mmol/L Anion Gap 7.0 mmol/L Blood Urea Nitrogen 4 mg/dl Creatinine 0.58 mg/dl Est Creatinine Clear Calc Drug Dose 70.0 ml/min Estimated GFR () 99.5 Estimated GFR (Non- 85.8 BUN/Creatinine Ratio 6.7 Random Glucose 99 mg/dl Calcium Level 8.7 mg/dl Magnesium Level 1.9 mg/dl Total Bilirubin 0.6 mg/dl Aspartate Amino Transf (AST/SGOT) 106 U/L Alanine Aminotransferase (ALT/SGPT) 102 U/L Alkaline Phosphatase 96 U/L Total Protein 5.8 gm/dl Albumin 2.1 gm/dl Globulin 3.7 gm/dl Albumin/Globulin Ratio 0.6 Procalcitonin 0.10 ng/ml Assessment and Plan This is an 82 year old female with a PMH of dementia, multiple falls, CAD s/p stenting, hypertension, hyperlipidemia, depression - presents with fall confusion. Subsequently found to have a UTI; later found to have acute bilateral pulmonary embolism and DVT as well as C. Diff colitis. Acute Bilateral Pulmonary Embolism Acute R sided DVT 07/10 - plan to d/c heparin ggt in AM, start aspirin 325mg - plan to d/c to SNF prior to return to [facility] - will d/c with Augmentin for UTI and oral Vanco for C. Diff 07/09 - family to decide on anticoagulation - palliative care consultation pending - may need home hospice 07/08 - patient has been treated appropriately with IV heparin - patient's daughter spoke with me on 07/08 - discussion about aspirin, Coumadin, and NOACs - due to multiple falls, recommendation made against NOACs - would like to discuss with brother prior to decision; continue IV heparin in the meantime - also consulted palliative care for goals of treatment and prevention of future hospitalizations C. Diff colitis - patient currently on oral Vancomycin - diarrhea persistent and significant - will stop all laxatives/stool softeners - unfortunately she was receiving these the past few days - will add lactobacillus - continue oral Vanco - replace electrolytes Enterococcal UTI - enterococcus faecalis grown on urine culture - pansensitive organism - currently on Unasyn - will need around 10 days of treatment Multiple Falls Ambulatory Dysfunction - likely due to dementia, functional decline - PT/OT - supposed to use a walker at baseline, but does not use this due to dementia - may need rehab prior to return to [facility] Traumatic Rib Fracture - secondary to fall - avoiding narcotics if possible - lidocaine patch for pain Metabolic Encephalopathy vs. Delirium on Dementia - patient does have sundowning issues - underlying dementia - possible infectious cause of confusion - seems to be closer to baseline as per daughter CAD s/p stenting - continue b-ayaan, aspirin, statin HTN - low dose Lisinopril and b-ayaan Depression - continue Lexapro DVT ppx - IV heparin DNR/DNI - palliative care consulted - PT/OT ordered - may need rehab prior to discharge back to [facility]
[2017-07-10 19:53] LABS: ANTICARDIOLIPID AB IGA <11 APL (< = 11)
[2017-07-10] MEDS: ATORVASTATIN 20 MG TAB PO SCH (22:37)
[2017-07-11] VITALS (9 sets, daily range): BP systolic 110–154; BP diastolic 67–91; PULSE 64–122; TEMP 36.6–38; O2SAT 91–97
[2017-07-11] MEDS: AMPICILLIN/SULBACTAM SOD INJ 3,000 MG in SODIUM CHLORIDE 0.9% 100ML 100 ML IV SCH ×4 (03:10→20:47)
[2017-07-11] MEDS: ACETAMINOPHEN IV 650 MG in EMPTY BAG 0 ML IV PRN (03:51)
[2017-07-11] MEDS ORDERED: METOPROLOL SUCC 25MG EXT REL TAB PO ONE ×2 (04:58→19:31)
[2017-07-11] MEDS ORDERED: POTASSIUM CHLORIDE 10 MEQ TABCR PO ONE (05:00)
[2017-07-11] MEDS: VANCOMYCIN HCL 125 MG/2.5ML SOLN PO SCH ×5 (05:28→23:29)
[2017-07-11] MEDS: RASPBERRY SYRUP 5 ML UDP PO SCH ×5 (05:28→23:29)
[2017-07-11 05:39] LABS: BASO % 0.1 %; BASO ABS # 0.01 K/uL (0-0.2); EOS % 3.1 %; EOS ABS # 0.26 K/uL (0-0.5); HEMATOCRIT 31.8 % (37-47); HEMOGLOBIN 10.9 g/dL (12.0-16.0); IG# 0.07 K/uL (0.00-0.02); LYMPH % 11.6 %; LYMPH ABS # 0.98 K/uL (1.2-3.4); MEAN CELL VOLUME 87.1 fL (80-100); MEAN CORPUSCULAR HEMOGLOBIN 29.9 pg (25-34); MEAN CORPUSCULAR HGB CONC 34.3 g/dl (32-36); MEAN PLATELET VOLUME 8.8 fL (7.4-10.4); MONO % 6.5 %; MONO ABS # 0.55 K/uL (0.11-0.59); NEUT % 77.9 %; NEUT ABS # 6.57 K/uL (1.4-6.5); PLATELET COUNT 335 K/uL (130-400); RED CELL DISTRIBUTION WIDTH CV 12.6 % (11.5-14.5); RED CELL DISTRIBUTION WIDTH SD 40.9 fL (36.4-46.3); WHITE BLOOD COUNT 8.44 K/uL (4.8-10.8)
--- NOTE | 2017-07-11 05:56 | Progress Note ---
Internal Med Progress Note Date of Service: Jul 11, 2017. Provider Documentation: Episodic bursts of tachycardia in early a.m. the last 2 days. CR 130s-140s Patient asymptomatic. This a.m. patient noted to have the fever spike followed by SVT. SVT resolved with early administration of AM Toprol-XL and extra potassium. AP PSVT Increased Toprol-XL frequency to BID dosing for now. Will relay to AM provider. Vital Signs: Date Time Temp Pulse Resp B/P (MAP) Pulse Ox O2 Delivery O2 Flow Rate FiO2 07/11/17 06:07 37.0 110/76 (87) 07/11/17 04:00 Room Air 07/11/17 03:47 38.0 85 18 149/79 (102) 92 Room Air 07/11/17 00:00 Room Air 07/10/17 23:03 37.2 84 20 168/83 (111) 96 Room Air 07/10/17 20:09 96 Room Air 07/10/17 19:37 37.2 70 18 149/63 (91) 96 Room Air 07/10/17 16:03 96 Room Air 07/10/17 15:42 36.7 68 18 149/74 (99) 96 Room Air 07/10/17 13:13 Room Air 07/10/17 11:22 36.8 71 18 135/70 (91) 96 Room Air 07/10/17 08:00 Room Air 07/10/17 07:26 36.9 72 18 150/79 (102) 96 Room Air Lab Results: Results Past 24 Hours Test 07/11/17 05:08 Range/Units White Blood Count 8.44 4.8-10.8 K/uL Red Blood Count 3.65 4.2-5.4 M/uL Hemoglobin 10.9 12.0-16.0 g/dL Hematocrit 31.8 37-47 % Mean Corpuscular Volume 87.1 80-100 fL Mean Corpuscular Hemoglobin 29.9 25-34 pg Mean Corpuscular Hemoglobin Concent 34.3 32-36 g/dl Platelet Count 335 130-400 K/uL Mean Platelet Volume 8.8 7.4-10.4 fL Neutrophils (%) (Auto) 77.9 % Lymphocytes (%) (Auto) 11.6 % Monocytes (%) (Auto) 6.5 % Eosinophils (%) (Auto) 3.1 % Basophils (%) (Auto) 0.1 % Neutrophils # (Auto) 6.57 1.4-6.5 K/uL Lymphocytes # (Auto) 0.98 1.2-3.4 K/uL Monocytes # (Auto) 0.55 0.11-0.59 K/uL Eosinophils # (Auto) 0.26 0-0.5 K/uL Basophils # (Auto) 0.01 0-0.2 K/uL RDW Standard Deviation 40.9 36.4-46.3 fL RDW Coefficient of Variation 12.6 11.5-14.5 % Immature Granulocyte % (Auto) 0.8 % Immature Granulocyte # (Auto) 0.07 0.00-0.02 K/uL Activated Partial Thromboplast Time 64.3 21.0-31.0 SECONDS Partial Thromboplastin Ratio 2.5 Sodium Level 135 136-145 mmol/L Potassium Level 3.7 3.5-5.1 mmol/L Chloride Level 103 98-107 mmol/L Carbon Dioxide Level 24 21-32 mmol/L Anion Gap 8.0 3-11 mmol/L Blood Urea Nitrogen 4 7-18 mg/dl Creatinine 0.51 0.60-1.20 mg/dl Est Creatinine Clear Calc Drug Dose 79.6 ml/min Estimated GFR () 103.8 Estimated GFR (Non- 89.5 BUN/Creatinine Ratio 7.1 10-20 Random Glucose 105 70-99 mg/dl Calcium Level 8.9 8.5-10.1 mg/dl Magnesium Level 2.0 1.8-2.4 mg/dl Total Bilirubin 0.5 0.2-1 mg/dl Direct Bilirubin < 0.1 0-0.2 mg/dl Aspartate Amino Transf (AST/SGOT) 108 15-37 U/L Alanine Aminotransferase (ALT/SGPT) 118 12-78 U/L Alkaline Phosphatase 94 45-117 U/L Total Protein 5.9 6.4-8.2 gm/dl Albumin 2.1 3.4-5.0 gm/dl
[2017-07-11 05:58] LABS: PTT PATIENT 64.3 SECONDS (21.0-31.0)
[2017-07-11 06:12] LABS: CALCIUM 8.9 mg/dl (8.5-10.1); CREATININE 0.51 mg/dl (0.60-1.20); POTASSIUM 3.7 mmol/L (3.5-5.1)
[2017-07-11] MEDS ORDERED: NSS + 20MEQ KCL 1000ML 1,000 ML IV ONE (06:30)
[2017-07-11 06:31] LABS: ALBUMIN 2.1 gm/dl (3.4-5.0); ALKALINE PHOSPHATASE 94 U/L (45-117); ALT/SGPT 118 U/L (12-78); AST/SGOT 108 U/L (15-37); TOTAL PROTEIN 5.9 gm/dl (6.4-8.2)
[2017-07-11] MEDS: POTASSIUM CHLORIDE 20 MEQ TABCR PO SCH ×2 (08:07→20:34)
[2017-07-11] MEDS: ESCITALOPRAM OXALATE 10 MG TAB PO SCH (08:08)
[2017-07-11] MEDS: LIDODERM (LIDOCAINE) PATCH 5% TD SCH (08:08)
[2017-07-11] MEDS: LACTOBACILLUS ACIDOPHILUS (FLORANEX) TAB PO SCH ×4 (08:08→17:05)
[2017-07-11] MEDS: ARTIFICIAL TEARS OP SOLN OPB SCH ×2 (08:09→20:35)
[2017-07-11] MEDS: MICONAZOLE NITRATE POWDER 43 GM EXT SCH ×4 (08:09→20:34)
[2017-07-11] MEDS: LISINOPRIL 5 MG TAB PO SCH (08:09)
[2017-07-11] MEDS ORDERED: METOPROLOL SUCC 25MG EXT REL TAB PO SCH ×2 (09:00→21:00)
--- NOTE | 2017-07-11 09:27 | DIAGNOSTIC IMAGING REPORT ---
BILIARY ULTRASOUND CLINICAL HISTORY: Abnormal liver function tests COMPARISON STUDY: CT scan dated 07/07/2017 FINDINGS: No hepatic masses were visualized. There is slight heterogeneity in hepatic echotexture, with bright portal triads. This a nonspecific finding, with a broad differential. Likely etiologies in this person include right heart failure, or hepatitis. There are multiple gallstones. There is no gallbladder wall thickening. There is no pericholecystic fluid. The common bile duct measures 6 mm. The pancreas appears sonographically unremarkable. There is no right-sided hydronephrosis. IMPRESSION: 1. Cholelithiasis. No evidence of ductal dilatation. 2. Bright portal triads, a very nonspecific finding. Given the elevated LFTs and clinical presentation, likely diagnostic considerations include right heart failure, or hepatitis. Electronically signed by: Toni Tim M.D. 07/11/2017 9:26 AM Dictated Date/Time: 07/11/2017 9:22 AM
[2017-07-11] MEDS: ASPIRIN/ALUM/MAGNES/CAL CARB 325 MG TAB PO SCH (11:21)
--- NOTE | 2017-07-11 17:25 | Progress Note ---
Subjective Date of Service: Jul 11, 2017. Subjective Pt evaluation today including: conversation w/ patient, physical exam, lab review, review of studies, review of inpatient medication list Saw/examined the patient in room 286 She is laying comfortably, in no distress Anxious at times, but not currently Problem List Medical Problems: (1) Bilateral pulmonary embolism Status: Acute (2) Closed head injury Status: Acute (3) Fall Status: Acute (4) Falls Status: Acute (5) Rib fractures Status: Acute (6) Symptomatic anemia Status: Acute (7) Urinary tract infection Status: Acute (8) UTI (urinary tract infection) Status: Acute Review of Systems Respiratory: No shortness of breath Cardiac: + problem reported, No chest pain Medications Current Inpatient Medications Medications (Trade) Dose Ordered Sig/Génesis Route Start Time Stop Time Status Last Admin Dose Admin Al Hydrox/Mg Hydrox/Simethicone (Maalox Max Susp) 15 ml Q4H PRN PO 07/04/17 11:30 08/03/17 11:29 Magnesium Hydroxide (Milk Of Magnesia Susp) 30 ml Q12H PRN PO 07/04/17 11:30 08/03/17 11:29 Ondansetron HCl (Zofran Inj) 4 mg Q6H PRN IV 07/04/17 11:30 08/03/17 11:29 07/05/17 03:02 4 MG Nitroglycerin (Nitrostat Tab) 0.4 mg UD PRN SL 07/04/17 11:30 08/03/17 11:29 Polyethylene (Miralax Powder Packet) 17 gm DAILY PRN PO 07/04/17 11:30 08/03/17 11:29 Lidocaine (Lidoderm Patch 5%) 1 patch QAM TD 07/04/17 11:30 08/03/17 11:29 07/11/17 08:08 1 PATCH Miscellaneous (Remove Lidoderm Patch) 1 ea DAILY@21 N/A 07/04/17 21:00 08/03/17 20:59 07/10/17 22:29 1 EA Tramadol HCl (Ultram Tab) 50 mg Q4H PRN PO 07/04/17 11:30 08/03/17 11:29 Future Hold 07/05/17 02:48 50 MG Morphine Sulfate (MoRPHine SULFATE INJ) 1 mg Q4 PRN IV 07/04/17 11:30 07/18/17 11:29 07/07/17 01:39 1 MG Morphine Sulfate (MoRPHine SULFATE INJ) 2 mg Q4 PRN IV 07/04/17 11:30 07/18/17 11:29 Future Hold Atorvastatin Calcium (Lipitor Tab) 20 mg QPM PO 07/04/17 21:00 08/03/17 20:59 Future Hold 07/10/17 22:37 20 MG Escitalopram Oxalate (Lexapro Tab) 10 mg QAM PO 07/05/17 09:00 08/04/17 08:59 07/11/17 08:08 10 MG Lisinopril (Zestril Tab) 5 mg DAILY PO 07/05/17 09:00 08/04/17 08:59 07/11/17 08:09 5 MG Risperidone (Risperdal Tab) 0.25 mg DAILY PO 07/05/17 09:00 08/04/17 08:59 Future Hold 07/05/17 09:09 0.25 MG Risperidone (Risperdal Tab) 0.5 mg HS PO 07/04/17 21:00 08/03/17 20:59 Future Hold 07/04/17 20:24 0.5 MG Sodium Chloride ([place] Nasal [place]) 2 sprays HS PRN KAEL 07/04/17 12:30 08/03/17 12:29 Artificial Tears (Artificial Tears) 1 drops BID OPB 07/04/17 21:00 08/03/17 20:59 07/11/17 08:09 1 DROPS Miscellaneous Information (Order Awaiting Action) 1 ea QS N/A 07/04/17 16:00 08/03/17 15:59 07/05/17 16:00 1 EA Ampicillin Sodium/ Sulbactam Sodium 3000 mg/Sodium Chloride 108 ml @ 200 mls/hr Q6H IV 07/06/17 02:00 07/16/17 01:59 07/11/17 13:58 200 MLS/HR Vancomycin HCl (Vancomycin Oral Soln) 125 mg Q6H PO 07/07/17 00:00 07/21/17 00:00 07/11/17 05:28 125 MG Raspberry (Raspberry Syrup 5ml Cup) 5 ml Q6H PO 07/07/17 00:00 07/21/17 00:00 07/11/17 05:28 5 ML Lactobacillus Acidophilus (Floranex Tab) 4 tab TIDM PO 07/08/17 12:00 08/07/17 11:59 07/11/17 08:08 4 TAB Miconazole Nitrate (Desenex Powder) 1 appln QID EXT 07/08/17 13:00 08/07/17 12:59 07/11/17 13:59 1 APPLN Miconazole Nitrate (Desenex Powder) 1 appln PRN PRN EXT 07/08/17 11:30 08/07/17 11:29 Acetaminophen 650 mg/Empty Bag 65 ml @ 260 mls/hr Q6H PRN IV 07/09/17 03:00 08/08/17 02:59 07/11/17 03:51 260 MLS/HR Potassium Chloride (Klor-Con Tab) 20 meq BID PO 07/09/17 09:00 08/08/17 08:59 07/11/17 08:07 20 MEQ Metoprolol Succinate (Toprol Xl Tab) 12.5 mg BID PO 07/11/17 21:00 08/04/17 08:59 07/11/17 08:07 12.5 MG Potassium Chloride/Sodium Chloride 1,000 ml @ 60 mls/hr [id number] ONCE IV 07/11/17 06:30 07/11/17 23:09 07/11/17 06:52 60 MLS/HR Aspirin/Aluminum/ Magnesium/Ca Carb (Ascriptin Tab) 325 mg DAILY PO 07/11/17 09:00 08/10/17 08:59 07/11/17 11:21 325 MG Objective Vital Signs Date Time Temp Pulse Resp B/P (MAP) Pulse Ox O2 Delivery O2 Flow Rate FiO2 07/11/17 15:30 37.1 64 18 114/67 (83) 91 Room Air 07/11/17 12:39 Room Air 07/11/17 12:32 Room Air 07/11/17 11:25 37.0 75 20 154/82 (106) 95 07/11/17 08:00 Room Air 07/11/17 07:24 36.6 67 20 129/72 (91) 97 07/11/17 06:07 37.0 110/76 (87) 07/11/17 04:00 Room Air 07/11/17 03:47 38.0 85 18 149/79 (102) 92 Room Air 07/11/17 00:00 Room Air 07/10/17 23:03 37.2 84 20 168/83 (111) 96 Room Air 07/10/17 20:09 96 Room Air 07/10/17 19:37 37.2 70 18 149/63 (91) 96 Room Air Physical Exam General Appearance: no apparent distress, + pertinent finding (weakness, lethargic) Respiratory/Chest: no respiratory distress, no accessory muscle use, + pertinent finding (left chest wall tenderness) Cardiovascular: regular rate, rhythm, no edema, no murmur Neurologic/Psychiatric: alert, + pertinent finding (mild underlying dementia noted) Laboratory Results Last 24 Hours Test 07/11/17 05:08 07/11/17 09:30 White Blood Count 8.44 K/uL Red Blood Count 3.65 M/uL Hemoglobin 10.9 g/dL Hematocrit 31.8 % Mean Corpuscular Volume 87.1 fL Mean Corpuscular Hemoglobin 29.9 pg Mean Corpuscular Hemoglobin Concent 34.3 g/dl Platelet Count 335 K/uL Mean Platelet Volume 8.8 fL Neutrophils (%) (Auto) 77.9 % Lymphocytes (%) (Auto) 11.6 % Monocytes (%) (Auto) 6.5 % Eosinophils (%) (Auto) 3.1 % Basophils (%) (Auto) 0.1 % Neutrophils # (Auto) 6.57 K/uL Lymphocytes # (Auto) 0.98 K/uL Monocytes # (Auto) 0.55 K/uL Eosinophils # (Auto) 0.26 K/uL Basophils # (Auto) 0.01 K/uL RDW Standard Deviation 40.9 fL RDW Coefficient of Variation 12.6 % Immature Granulocyte % (Auto) 0.8 % Immature Granulocyte # (Auto) 0.07 K/uL Activated Partial Thromboplast Time 64.3 SECONDS Partial Thromboplastin Ratio 2.5 Sodium Level 135 mmol/L Potassium Level 3.7 mmol/L Chloride Level 103 mmol/L Carbon Dioxide Level 24 mmol/L Anion Gap 8.0 mmol/L Blood Urea Nitrogen 4 mg/dl Creatinine 0.51 mg/dl Est Creatinine Clear Calc Drug Dose 79.6 ml/min Estimated GFR () 103.8 Estimated GFR (Non- 89.5 BUN/Creatinine Ratio 7.1 Random Glucose 105 mg/dl Calcium Level 8.9 mg/dl Magnesium Level 2.0 mg/dl Total Bilirubin 0.5 mg/dl Direct Bilirubin < 0.1 mg/dl Aspartate Amino Transf (AST/SGOT) 108 U/L Alanine Aminotransferase (ALT/SGPT) 118 U/L Alkaline Phosphatase 94 U/L Total Protein 5.9 gm/dl Albumin 2.1 gm/dl Lipase 140 U/L Urine Color YELLOW Urine Appearance CLEAR Urine pH 7.5 Urine Specific [place] 1.011 Urine Protein NEG Urine Glucose (UA) NEG Urine Ketones NEG Urine Occult Blood NEG Urine Nitrite NEG Urine Bilirubin NEG Urine Urobilinogen NEG Urine Leukocyte Esterase NEG Assessment and Plan This is an 82 year old female with a PMH of dementia, multiple falls, CAD s/p stenting, hypertension, hyperlipidemia, depression - presents with fall confusion. Subsequently found to have a UTI; later found to have acute bilateral pulmonary embolism and DVT as well as C. Diff colitis. Acute Bilateral Pulmonary Embolism Acute R sided DVT 07/11 - d/c'd IV heparin - continue aspirin; full dose - continue Unasyn for now, continue oral Vanco - has been spiking fevers - currently afebrile throughout today - HRs are improved this afternoon 07/10 - plan to d/c heparin ggt in AM, start aspirin 325mg - plan to d/c to SNF prior to return to [facility] - will d/c with Augmentin for UTI and oral Vanco for C. Diff 07/09 - family to decide on anticoagulation - palliative care consultation pending - may need home hospice 07/08 - patient has been treated appropriately with IV heparin - patient's daughter spoke with me on 07/08 - discussion about aspirin, Coumadin, and NOACs - due to multiple falls, recommendation made against NOACs - would like to discuss with brother prior to decision; continue IV heparin in the meantime - also consulted palliative care for goals of treatment and prevention of future hospitalizations SVT - patient with tachycardic episodes - does get anxious, but confirmed SVT with elevated HRs - now on Toprol BID dosing - no tachycardia throughout today, monitor in tele Elevated LFTs - possibly secondary to diastolic CHF and fluid overload - will stop IVFs for now, repeat CXR in AM - monitor LFTs C. Diff colitis - patient currently on oral Vancomycin - diarrhea persistent and significant - will stop all laxatives/stool softeners - unfortunately she was receiving these the past few days - will add lactobacillus - continue oral Vanco - replace electrolytes Enterococcal UTI - enterococcus faecalis grown on urine culture - pansensitive organism - currently on Unasyn - will need around 10 days of treatment Multiple Falls Ambulatory Dysfunction - likely due to dementia, functional decline - PT/OT - supposed to use a walker at baseline, but does not use this due to dementia - may need rehab prior to return to [facility] Traumatic Rib Fracture - secondary to fall - avoiding narcotics if possible - lidocaine patch for pain Metabolic Encephalopathy vs. Delirium on Dementia - patient does have sundowning issues - underlying dementia - possible infectious cause of confusion - seems to be closer to baseline as per daughter CAD s/p stenting - continue b-ayaan, aspirin, statin HTN - low dose Lisinopril and b-ayaan Depression - continue Lexapro DVT ppx - IV heparin DNR/DNI - palliative care consulted - PT/OT ordered - may need rehab prior to discharge back to [facility]
[2017-07-11] MEDS ORDERED: ACETAMINOPHEN 325 MG TAB PO PRN (19:45)
[2017-07-11] MEDS: ONDANSETRON INJ 2 MG/ML 2 ML VIAL IV PRN (20:29)
[2017-07-11 21:57] LABS: HEP C IGG 13 YRS+OLDER_RFLX NEG (NEG)
[2017-07-12] VITALS (11 sets, daily range): BP systolic 98–129; BP diastolic 61–73; PULSE 59–68; TEMP 36.7–37.3; O2SAT 91–96
--- NOTE | 2017-07-12 00:22 | DIAGNOSTIC IMAGING REPORT ---
CT SCAN OF THE BRAIN WITHOUT IV CONTRAST CLINICAL HISTORY: Fall. Change in mental status. COMPARISON STUDY: CT of the brain dated 07/04/2017. TECHNIQUE: Unenhanced axial CT scan of the brain is performed from the vertex to the skull base. A dose lowering technique was utilized adhering to the principles of ALARA. CT DOSE: 614.27 mGy.cm FINDINGS: Brain parenchyma: There are age-related involutional changes noting [id number] patchy subcortical and periventricular microangiopathic change. There is no hemorrhage, mass effect, or evidence of acute territorial ischemia by CT criteria. Hsu-white matter is preserved. No extra-axial fluid collection is seen. Ventricles, sulci, cisterns: Prominent secondary to involutional change. Intracranial vasculature: There is atherosclerotic calcification of the cavernous carotid and vertebral arteries. Calvarium: The skeletal structures are osteopenic. There is no depressed calvarial fracture. Soft tissues: There is a small left frontal scalp contusion. Sinuses and mastoids: The visualized paranasal sinuses are clear. The mastoid air cells are well pneumatized. Orbits: The bony orbits are grossly intact. There are bilateral ocular lens implants. IMPRESSION: There is no hemorrhage, mass effect, or evidence of acute territorial ischemia by CT criteria. Electronically signed by: Holden Dao M.D. 07/12/2017 12:20 AM Dictated Date/Time: 07/12/2017 12:18 AM
[2017-07-12 00:58] LABS: BASO % 0.3 %; BASO ABS # 0.02 K/uL (0-0.2); EOS ABS # 0.13 K/uL (0-0.5); HEMATOCRIT 30.6 % (37-47); HEMOGLOBIN 10.4 g/dL (12.0-16.0); IG# 0.06 K/uL (0.00-0.02); LYMPH ABS # 1.13 K/uL (1.2-3.4); MEAN CELL VOLUME 88.7 fL (80-100); MEAN CORPUSCULAR HEMOGLOBIN 30.1 pg (25-34); MEAN PLATELET VOLUME 8.5 fL (7.4-10.4); MONO ABS # 0.53 K/uL (0.11-0.59); NEUT % 71.8 %; NEUT ABS # 4.77 K/uL (1.4-6.5); PLATELET COUNT 282 K/uL (130-400); RED CELL DISTRIBUTION WIDTH CV 12.8 % (11.5-14.5); RED CELL DISTRIBUTION WIDTH SD 41.4 fL (36.4-46.3); WHITE BLOOD COUNT 6.64 K/uL (4.8-10.8)
[2017-07-12 01:23] LABS: ALBUMIN 2.1 gm/dl (3.4-5.0); CALCIUM 8.7 mg/dl (8.5-10.1); CREATININE 0.77 mg/dl (0.60-1.20); POTASSIUM 4.5 mmol/L (3.5-5.1); TOTAL PROTEIN 5.7 gm/dl (6.4-8.2)
[2017-07-12] MEDS: AMPICILLIN/SULBACTAM SOD INJ 3,000 MG in SODIUM CHLORIDE 0.9% 100ML 100 ML IV SCH (03:09)
--- NOTE | 2017-07-12 03:38 | Progress Note ---
Internal Med Progress Note Date of Service: Jul 12, 2017. Provider Documentation: 07/11/17 6-8 PM - Fever spike resulting in a tachycardic episode, resolved with Tylenol and early PM Toprol administration. 11:30 PM - decreased responsiveness as per RN. Patient more awake when roused to go down for CT study. CT head no acute pathology. Lyme screen negative Serum ammonia normal Worsening LFTs noted on blood work. AP Abnormal LFTs, intermittent fever ? Infectious hepatitis ? Drug induced liver toxicity (? Unasyn) Hepatitis screen Hold Unasyn for Enterococcal UTI (patient had already completed >5 days rx; repeat UA from 07/11 clean) Follow LFTs Consider GI consult for transaminitis if subsequent LFTs do not improve. Will relay developments to AM provider. Vital Signs: Date Time Temp Pulse Resp B/P (MAP) Pulse Ox O2 Delivery O2 Flow Rate FiO2 07/12/17 04:00 Room Air 07/12/17 04:00 37.3 68 18 129/72 (91) 95 Room Air 07/12/17 00:00 37.2 67 18 123/73 (90) 93 Room Air 07/12/17 00:00 Room Air 07/11/17 20:11 38.0 72 16 130/69 (89) 93 Room Air 07/11/17 20:00 92 Room Air 07/11/17 18:21 38.0 122 18 152/91 (111) 92 Room Air 07/11/17 16:00 92 Room Air 07/11/17 15:30 37.1 64 18 114/67 (83) 91 Room Air 07/11/17 12:39 Room Air 07/11/17 12:32 Room Air 07/11/17 11:25 37.0 75 20 154/82 (106) 95 07/11/17 08:00 Room Air 07/11/17 07:24 36.6 67 20 129/72 (91) 97 Lab Results: Results Past 24 Hours Test 07/11/17 09:30 07/11/17 20:24 07/12/17 00:46 07/12/17 00:47 Range/Units Urine Color YELLOW Urine Appearance CLEAR CLEAR Urine pH 7.5 4.5-7.5 Urine Specific [place] 1.011 1.000-1.030 Urine Protein NEG NEG Urine Glucose (UA) NEG NEG Urine Ketones NEG NEG Urine Occult Blood NEG NEG Urine Nitrite NEG NEG Urine Bilirubin NEG NEG Urine Urobilinogen NEG NEG Urine Leukocyte Esterase NEG NEG Lyme Disease IgG Antibody NEG NEG Lyme Disease IgM Antibody NEG NEG Hepatitis B Surface Antigen NEG NEG Hepatitis C Antibody NEG NEG Sodium Level 136 136-145 mmol/L Potassium Level 4.5 3.5-5.1 mmol/L Chloride Level 105 98-107 mmol/L Carbon Dioxide Level 24 21-32 mmol/L Anion Gap 7.0 3-11 mmol/L Blood Urea Nitrogen 8 7-18 mg/dl Creatinine 0.77 0.60-1.20 mg/dl Est Creatinine Clear Calc Drug Dose 52.7 ml/min Estimated GFR () 83.3 Estimated GFR (Non- 71.9 BUN/Creatinine Ratio 10.1 10-20 Random Glucose 107 70-99 mg/dl Calcium Level 8.7 8.5-10.1 mg/dl Magnesium Level 2.0 1.8-2.4 mg/dl Total Bilirubin 0.3 0.2-1 mg/dl Aspartate Amino Transf (AST/SGOT) 130 15-37 U/L Alanine Aminotransferase (ALT/SGPT) 128 12-78 U/L Alkaline Phosphatase 91 45-117 U/L Ammonia 30.0 11-32 umol/L Total Protein 5.7 6.4-8.2 gm/dl Albumin 2.1 3.4-5.0 gm/dl Globulin 3.6 2.5-4.0 gm/dl Albumin/Globulin Ratio 0.6 0.9-2 White Blood Count 6.64 4.8-10.8 K/uL Red Blood Count 3.45 4.2-5.4 M/uL Hemoglobin 10.4 12.0-16.0 g/dL Hematocrit 30.6 37-47 % Mean Corpuscular Volume 88.7 80-100 fL Mean Corpuscular Hemoglobin 30.1 25-34 pg Mean Corpuscular Hemoglobin Concent 34.0 32-36 g/dl Platelet Count 282 130-400 K/uL Mean Platelet Volume 8.5 7.4-10.4 fL Neutrophils (%) (Auto) 71.8 % Lymphocytes (%) (Auto) 17.0 % Monocytes (%) (Auto) 8.0 % Eosinophils (%) (Auto) 2.0 % Basophils (%) (Auto) 0.3 % Neutrophils # (Auto) 4.77 1.4-6.5 K/uL Lymphocytes # (Auto) 1.13 1.2-3.4 K/uL Monocytes # (Auto) 0.53 0.11-0.59 K/uL Eosinophils # (Auto) 0.13 0-0.5 K/uL Basophils # (Auto) 0.02 0-0.2 K/uL RDW Standard Deviation 41.4 36.4-46.3 fL RDW Coefficient of Variation 12.8 11.5-14.5 % Immature Granulocyte % (Auto) 0.9 % Immature Granulocyte # (Auto) 0.06 0.00-0.02 K/uL
[2017-07-12] MEDS: VANCOMYCIN HCL 125 MG/2.5ML SOLN PO SCH ×4 (06:08→23:50)
[2017-07-12] MEDS: RASPBERRY SYRUP 5 ML UDP PO SCH ×4 (06:08→23:50)
--- NOTE | 2017-07-12 07:28 | DIAGNOSTIC IMAGING REPORT ---
SINGLE VIEW CHEST CLINICAL HISTORY: Fluid overload. Chest congestion. FINDINGS: An AP, portable, upright chest radiograph is compared to study dated 07/01/2017 and correlated with chest CT dated 07/04/2017. Greater The heart is enlarged and there is atherosclerotic calcification of the thoracic aorta. The pulmonary vasculature is noncongested. Chronic interstitial thickening is similar to previous. There is left basilar atelectasis. A trace left pleural effusion is suspected. No airspace consolidation is identified typical for pneumonia. No pneumothorax is seen. The skeletal structures are osteopenic. The bony thorax is grossly intact. IMPRESSION: 1. Cardiomegaly without radiographic evidence of congestive failure. 2. Suspect a trace left pleural effusion with associated left basilar atelectasis. Electronically signed by: Holden Dao M.D. 07/12/2017 7:27 AM Dictated Date/Time: 07/12/2017 7:25 AM
[2017-07-12] MEDS: ESCITALOPRAM OXALATE 10 MG TAB PO SCH (08:13)
[2017-07-12] MEDS: ASPIRIN/ALUM/MAGNES/CAL CARB 325 MG TAB PO SCH (08:13)
[2017-07-12] MEDS: METOPROLOL SUCC 25MG EXT REL TAB PO SCH ×2 (08:14→20:24)
[2017-07-12] MEDS: LISINOPRIL 5 MG TAB PO SCH (08:15)
[2017-07-12] MEDS: POTASSIUM CHLORIDE 20 MEQ TABCR PO SCH ×2 (08:15→20:25)
[2017-07-12] MEDS: ARTIFICIAL TEARS OP SOLN OPB SCH ×2 (08:15→20:23)
[2017-07-12] MEDS: LIDODERM (LIDOCAINE) PATCH 5% TD SCH (08:16)
[2017-07-12] MEDS: MICONAZOLE NITRATE POWDER 43 GM EXT SCH ×4 (08:16→20:23)
[2017-07-12] MEDS ORDERED: METOPROLOL SUCC 25MG EXT REL TAB PO SCH (09:00)
[2017-07-12 12:17] LABS: ALBUMIN 2.2 gm/dl (3.4-5.0); ALKALINE PHOSPHATASE 95 U/L (45-117); ALT/SGPT 159 U/L (12-78); AST/SGOT 180 U/L (15-37)
--- NOTE | 2017-07-12 13:22 | Progress Note ---
Subjective Date of Service: Jul 12, 2017. Subjective Pt evaluation today including: conversation w/ patient, physical exam, lab review, review of studies, review of inpatient medication list Saw/examined the patient in room 286 No problems/issues at this time She is seated in a chair, no problems other than weakness/lethargy Problem List Medical Problems: (1) Bilateral pulmonary embolism Status: Acute (2) Closed head injury Status: Acute (3) Fall Status: Acute (4) Falls Status: Acute (5) Rib fractures Status: Acute (6) Symptomatic anemia Status: Acute (7) Urinary tract infection Status: Acute (8) UTI (urinary tract infection) Status: Acute Review of Systems Constitutional: + weakness, + fatigue, No fever, No chills Respiratory: No cough, No sputum, No shortness of breath Cardiac: No chest pain, No edema, No palpitations Medications Current Inpatient Medications Medications (Trade) Dose Ordered Sig/Génesis Route Start Time Stop Time Status Last Admin Dose Admin Al Hydrox/Mg Hydrox/Simethicone (Maalox Max Susp) 15 ml Q4H PRN PO 07/04/17 11:30 08/03/17 11:29 Magnesium Hydroxide (Milk Of Magnesia Susp) 30 ml Q12H PRN PO 07/04/17 11:30 08/03/17 11:29 Ondansetron HCl (Zofran Inj) 4 mg Q6H PRN IV 07/04/17 11:30 08/03/17 11:29 07/11/17 20:29 4 MG Nitroglycerin (Nitrostat Tab) 0.4 mg UD PRN SL 07/04/17 11:30 08/03/17 11:29 Polyethylene (Miralax Powder Packet) 17 gm DAILY PRN PO 07/04/17 11:30 08/03/17 11:29 Lidocaine (Lidoderm Patch 5%) 1 patch QAM TD 07/04/17 11:30 08/03/17 11:29 07/12/17 08:16 1 PATCH Miscellaneous (Remove Lidoderm Patch) 1 ea DAILY@21 N/A 07/04/17 21:00 08/03/17 20:59 07/11/17 20:35 1 EA Tramadol HCl (Ultram Tab) 50 mg Q4H PRN PO 07/04/17 11:30 4/22/18 11:29 Future Hold 07/05/17 02:48 50 MG Morphine Sulfate (MoRPHine SULFATE INJ) 1 mg Q4 PRN IV 07/04/17 11:30 07/18/17 11:29 07/07/17 01:39 1 MG Morphine Sulfate (MoRPHine SULFATE INJ) 2 mg Q4 PRN IV 07/04/17 11:30 07/18/17 11:29 Future Hold Atorvastatin Calcium (Lipitor Tab) 20 mg QPM PO 07/04/17 21:00 08/03/17 20:59 Future Hold 07/10/17 22:37 20 MG Escitalopram Oxalate (Lexapro Tab) 10 mg QAM PO 07/05/17 09:00 08/04/17 08:59 07/12/17 08:13 10 MG Lisinopril (Zestril Tab) 5 mg DAILY PO 07/05/17 09:00 08/04/17 08:59 07/12/17 08:15 5 MG Risperidone (Risperdal Tab) 0.25 mg DAILY PO 07/05/17 09:00 08/04/17 08:59 Future Hold 07/05/17 09:09 0.25 MG Risperidone (Risperdal Tab) 0.5 mg HS PO 07/04/17 21:00 08/03/17 20:59 Future Hold 07/04/17 20:24 0.5 MG Sodium Chloride ([place] Nasal [place]) 2 sprays HS PRN KAEL 07/04/17 12:30 08/03/17 12:29 Artificial Tears (Artificial Tears) 1 drops BID OPB 07/04/17 21:00 08/03/17 20:59 07/12/17 08:15 1 DROPS Miscellaneous Information (Order Awaiting Action) 1 ea QS N/A 07/04/17 16:00 08/03/17 15:59 07/05/17 16:00 1 EA Vancomycin HCl (Vancomycin Oral Soln) 125 mg Q6H PO 07/07/17 00:00 07/21/17 00:00 07/12/17 12:57 125 MG Raspberry (Raspberry Syrup 5ml Cup) 5 ml Q6H PO 07/07/17 00:00 07/21/17 00:00 07/12/17 12:57 5 ML Miconazole Nitrate (Desenex Powder) 1 appln QID EXT 07/08/17 13:00 08/07/17 12:59 07/12/17 12:57 1 APPLN Miconazole Nitrate (Desenex Powder) 1 appln PRN PRN EXT 07/08/17 11:30 08/07/17 11:29 Acetaminophen 650 mg/Empty Bag 65 ml @ 260 mls/hr Q6H PRN IV 07/09/17 03:00 08/08/17 02:59 07/11/17 03:51 260 MLS/HR Potassium Chloride (Klor-Con Tab) 20 meq BID PO 07/09/17 09:00 08/08/17 08:59 07/12/17 08:15 20 MEQ Aspirin/Aluminum/ Magnesium/Ca Carb (Ascriptin Tab) 325 mg DAILY PO 07/11/17 09:00 08/10/17 08:59 07/12/17 08:13 325 MG Metoprolol Succinate (Toprol Xl Tab) 12.5 mg BID PO 07/12/17 09:00 08/04/17 08:59 07/12/17 08:14 12.5 MG Acetaminophen (Tylenol Tab) 325 mg Q6H PRN PO 07/11/17 19:45 08/10/17 19:44 07/11/17 20:31 325 MG Objective Vital Signs Date Time Temp Pulse Resp B/P (MAP) Pulse Ox O2 Delivery O2 Flow Rate FiO2 07/12/17 11:50 36.7 64 16 115/64 (81) 92 Room Air 07/12/17 11:49 96 Room Air 07/12/17 11:34 36.8 67 20 98/61 (73) 96 07/12/17 08:00 91 Room Air 07/12/17 07:16 37.2 59 20 123/69 (87) 91 07/12/17 04:00 Room Air 07/12/17 04:00 37.3 68 18 129/72 (91) 95 Room Air 07/12/17 00:00 37.2 67 18 123/73 (90) 93 Room Air 07/12/17 00:00 Room Air 07/11/17 20:11 38.0 72 16 130/69 (89) 93 Room Air 07/11/17 20:00 92 Room Air 07/11/17 18:21 38.0 122 18 152/91 (111) 92 Room Air 07/11/17 16:00 92 Room Air 07/11/17 15:30 37.1 64 18 114/67 (83) 91 Room Air Physical Exam General Appearance: no apparent distress, + pertinent finding (underlying dementia) Respiratory/Chest: no respiratory distress, no accessory muscle use Cardiovascular: regular rate, rhythm, no edema, no murmur Abdomen: non tender, soft Extremities: normal inspection, no pedal edema Laboratory Results Last 24 Hours Test 07/11/17 20:24 07/12/17 00:46 07/12/17 00:47 07/12/17 11:49 Lyme Disease IgG Antibody NEG Lyme Disease IgM Antibody NEG Hepatitis B Surface Antigen NEG Hepatitis C Antibody NEG Sodium Level 136 mmol/L Potassium Level 4.5 mmol/L Chloride Level 105 mmol/L Carbon Dioxide Level 24 mmol/L Anion Gap 7.0 mmol/L Blood Urea Nitrogen 8 mg/dl Creatinine 0.77 mg/dl Est Creatinine Clear Calc Drug Dose 52.7 ml/min Estimated GFR () 83.3 Estimated GFR (Non- 71.9 BUN/Creatinine Ratio 10.1 Random Glucose 107 mg/dl Calcium Level 8.7 mg/dl Magnesium Level 2.0 mg/dl Total Bilirubin 0.3 mg/dl 0.3 mg/dl Aspartate Amino Transf (AST/SGOT) 130 U/L 180 U/L Alanine Aminotransferase (ALT/SGPT) 128 U/L 159 U/L Alkaline Phosphatase 91 U/L 95 U/L Ammonia 30.0 umol/L Total Protein 5.7 gm/dl 6.0 gm/dl Albumin 2.1 gm/dl 2.2 gm/dl Globulin 3.6 gm/dl Albumin/Globulin Ratio 0.6 White Blood Count 6.64 K/uL Red Blood Count 3.45 M/uL Hemoglobin 10.4 g/dL Hematocrit 30.6 % Mean Corpuscular Volume 88.7 fL Mean Corpuscular Hemoglobin 30.1 pg Mean Corpuscular Hemoglobin Concent 34.0 g/dl Platelet Count 282 K/uL Mean Platelet Volume 8.5 fL Neutrophils (%) (Auto) 71.8 % Lymphocytes (%) (Auto) 17.0 % Monocytes (%) (Auto) 8.0 % Eosinophils (%) (Auto) 2.0 % Basophils (%) (Auto) 0.3 % Neutrophils # (Auto) 4.77 K/uL Lymphocytes # (Auto) 1.13 K/uL Monocytes # (Auto) 0.53 K/uL Eosinophils # (Auto) 0.13 K/uL Basophils # (Auto) 0.02 K/uL RDW Standard Deviation 41.4 fL RDW Coefficient of Variation 12.8 % Immature Granulocyte % (Auto) 0.9 % Immature Granulocyte # (Auto) 0.06 K/uL Direct Bilirubin < 0.1 mg/dl Assessment and Plan This is an 82 year old female with a PMH of dementia, multiple falls, CAD s/p stenting, hypertension, hyperlipidemia, depression - presents with fall confusion. Subsequently found to have a UTI; later found to have acute bilateral pulmonary embolism and DVT as well as C. Diff colitis. Acute Bilateral Pulmonary Embolism Acute R sided DVT 07/12 - elevated LFTs possibly related to DVT and R heart strain - will check an echo - currently off of IV heparin - continue aspirin 07/11 - d/c'd IV heparin - continue aspirin; full dose - continue Unasyn for now, continue oral Vanco - has been spiking fevers - currently afebrile throughout today - HRs are improved this afternoon 07/10 - plan to d/c heparin ggt in AM, start aspirin 325mg - plan to d/c to SNF prior to return to [facility] - will d/c with Augmentin for UTI and oral Vanco for C. Diff 07/09 - family to decide on anticoagulation - palliative care consultation pending - may need home hospice 07/08 - patient has been treated appropriately with IV heparin - patient's daughter spoke with me on 07/08 - discussion about aspirin, Coumadin, and NOACs - due to multiple falls, recommendation made against NOACs - would like to discuss with brother prior to decision; continue IV heparin in the meantime - also consulted palliative care for goals of treatment and prevention of future hospitalizations SVT - patient with tachycardic episodes - does get anxious, but confirmed SVT with elevated HRs - now on Toprol BID dosing - no tachycardia throughout today, monitor in tele Elevated LFTs - possibly secondary to diastolic CHF and fluid overload - will stop IVFs for now, repeat CXR in AM - monitor LFTs C. Diff colitis - patient currently on oral Vancomycin - diarrhea persistent and significant - will stop all laxatives/stool softeners - unfortunately she was receiving these the past few days - will add lactobacillus - continue oral Vanco - replace electrolytes Enterococcal UTI - enterococcus faecalis grown on urine culture - pansensitive organism - currently on Unasyn - will need around 10 days of treatment Multiple Falls Ambulatory Dysfunction - likely due to dementia, functional decline - PT/OT - supposed to use a walker at baseline, but does not use this due to dementia - may need rehab prior to return to [facility] Traumatic Rib Fracture - secondary to fall - avoiding narcotics if possible - lidocaine patch for pain Metabolic Encephalopathy vs. Delirium on Dementia - patient does have sundowning issues - underlying dementia - possible infectious cause of confusion - seems to be closer to baseline as per daughter CAD s/p stenting - continue b-ayaan, aspirin, statin HTN - low dose Lisinopril and b-ayaan Depression - continue Lexapro DVT ppx - IV heparin DNR/DNI - palliative care consulted - PT/OT ordered - may need rehab prior to discharge back to [facility]
[2017-07-13] VITALS (9 sets, daily range): BP systolic 106–147; BP diastolic 67–83; PULSE 52–65; TEMP 36.6–37; O2SAT 90–96
[2017-07-13] MEDS: RASPBERRY SYRUP 5 ML UDP PO SCH ×4 (05:48→23:46)
[2017-07-13] MEDS: VANCOMYCIN HCL 125 MG/2.5ML SOLN PO SCH ×4 (05:48→23:46)
[2017-07-13 06:30] LABS: HEMATOCRIT 33.7 % (37-47); HEMOGLOBIN 11.1 g/dL (12.0-16.0); MEAN CELL VOLUME 89.6 fL (80-100); MEAN CORPUSCULAR HEMOGLOBIN 29.5 pg (25-34); MEAN CORPUSCULAR HGB CONC 32.9 g/dl (32-36); MEAN PLATELET VOLUME 8.9 fL (7.4-10.4); PLATELET COUNT 311 K/uL (130-400); RED CELL DISTRIBUTION WIDTH CV 12.8 % (11.5-14.5); RED CELL DISTRIBUTION WIDTH SD 41.8 fL (36.4-46.3); WHITE BLOOD COUNT 4.62 K/uL (4.8-10.8)
[2017-07-13 07:09] LABS: ALBUMIN 2.2 gm/dl (3.4-5.0); CALCIUM 8.8 mg/dl (8.5-10.1); CREATININE 0.72 mg/dl (0.60-1.20); POTASSIUM 4.2 mmol/L (3.5-5.1)
[2017-07-13 07:11] LABS: TOTAL PROTEIN 5.9 gm/dl (6.4-8.2)
[2017-07-13 07:16] LABS: HEPATITIS A IGM TC 51813E NON-REACTIVE (NON-REACTIVE); HEPATITIS B CORE IGM TC51854R NON-REACTIVE (NON-REACTIVE)
[2017-07-13] MEDS: ASPIRIN/ALUM/MAGNES/CAL CARB 325 MG TAB PO SCH (08:09)
[2017-07-13] MEDS: LISINOPRIL 5 MG TAB PO SCH (08:09)
[2017-07-13] MEDS: METOPROLOL SUCC 25MG EXT REL TAB PO SCH ×2 (08:10→21:26)
[2017-07-13] MEDS: ESCITALOPRAM OXALATE 10 MG TAB PO SCH (08:10)
[2017-07-13] MEDS: POTASSIUM CHLORIDE 20 MEQ TABCR PO SCH ×2 (08:11→21:25)
[2017-07-13] MEDS: ARTIFICIAL TEARS OP SOLN OPB SCH ×2 (08:13→21:23)
[2017-07-13] MEDS: MICONAZOLE NITRATE POWDER 43 GM EXT SCH ×4 (08:14→21:24)
[2017-07-13] MEDS: LIDODERM (LIDOCAINE) PATCH 5% TD SCH (08:14)
--- NOTE | 2017-07-13 09:51 | ECHOCARDIOGRAM REPORT ---
*NOTICE TO RECEIVING [employer] AGENCY This information is strictly Confidential and protected under [place] law. [place] law prohibits you from making any further disclosure of this information unless further disclosure is expressly permitted by the written consent of the person to whom it pertains or is authorized by law. A general authorization for the release of medical or other information is not sufficient for this purpose. Hospital accepts no responsibility if the information is made available to any other person, INCLUDING THE PATIENT. Interpretation Summary * Name: DANDY GREENBERG I Study Date: 07/12/2017 01:55 PM BP: 115/64 mmHg * Patient Location: [facility]-2 HR: 58 * : 1935 (M/d/yyyy) Gender: Female Height: 66 in * Age: 82 yrs Ethnicity: [place] Weight: 148 lb * Ordering Physician: Shine Carlson * Referring Physician: MARY CHAWLA * Performed By: Tabatha Esquivel RDCS * * Reason For Study: PE, Evaluate right heart strain * BSA: 1.8 m2 * -- Conclusions -- * Limited study, full examination performed 06/25/17. * The right ventricular cavity size is normal (basal dimension <4.2 cm in right ventricular apical 4-chamber view). * The right ventricular systolic function is normal as assessed by tricuspid annular plane systolic excursion (TAPSE) (normal >1.5 cm). * Small, anterior pericardial effusion without hemodynamic significance is now present. Procedure Details * A two-dimensional transthoracic echocardiogram was performed. Right Ventricle * The right ventricular cavity size is normal (basal dimension <4.2 cm in right ventricular apical 4-chamber view). * The right ventricular systolic function is normal as assessed by tricuspid annular plane systolic excursion (TAPSE) (normal >1.5 cm). MMode 2D Measurements and Calculations IVSd 1.3 cm LVIDd 3.8 cm LVIDs 2.4 cm LVPWd 1.3 cm IVS/LVPW 1.0 FS 38.6 % EDV(Teich) 63.7 ml ESV(Teich) 19.3 ml EF(Teich) 69.7 % EDV(cubed) 56.8 ml ESV(cubed) 13.1 ml EF(cubed) 76.9 % LV mass(C)d 178.8 grams LV mass(C)dI 101.6 grams/m\S\2 SV(Teich) 44.4 ml SI(Teich) 25.2 ml/m\S\2 SV(cubed) 43.7 ml SI(cubed) 24.8 ml/m\S\2 LA dimension 3.8 cm Doppler Measurements and Calculations PA V2 max 73.3 cm/sec PA max PG 2.2 mmHg PA acc slope 671.1 cm/sec\S\2 PA acc time 0.10 sec TR max madan 119.9 cm/sec PA pr(Accel) 35.3 mmHg
--- NOTE | 2017-07-13 10:00 | ECHOCARDIOGRAM REPORT ---
*NOTICE TO RECEIVING [employer] AGENCY This information is strictly Confidential and protected under [place] law. [place] law prohibits you from making any further disclosure of this information unless further disclosure is expressly permitted by the written consent of the person to whom it pertains or is authorized by law. A general authorization for the release of medical or other information is not sufficient for this purpose. Hospital accepts no responsibility if the information is made available to any other person, INCLUDING THE PATIENT. Interpretation Summary * Name: DANDY GREENBERG I Study Date: 07/12/2017 01:55 PM BP: 115/64 mmHg * Patient Location: [facility]-2 HR: 58 * : 1935 (M/d/yyyy) Gender: Female Height: 66 in * Age: 82 yrs Ethnicity: [place] Weight: 148 lb * Ordering Physician: Shine Carlson * Referring Physician: MARY CHAWLA * Performed By: Tabatha Esquivel RDCS * * Reason For Study: PE, Evaluate right heart strain * BSA: 1.8 m2 * -- Conclusions -- * Limited study, full examination performed 06/25/17. * The right ventricular cavity size is normal (basal dimension <4.2 cm in right ventricular apical 4-chamber view). * The right ventricular systolic function is normal as assessed by tricuspid annular plane systolic excursion (TAPSE) (normal >1.5 cm). Procedure Details * A two-dimensional transthoracic echocardiogram was performed. Right Ventricle * The right ventricular cavity size is normal (basal dimension <4.2 cm in right ventricular apical 4-chamber view). * The right ventricular systolic function is normal as assessed by tricuspid annular plane systolic excursion (TAPSE) (normal >1.5 cm). MMode 2D Measurements and Calculations IVSd 1.3 cm LVIDd 3.8 cm LVIDs 2.4 cm LVPWd 1.3 cm IVS/LVPW 1.0 FS 38.6 % EDV(Teich) 63.7 ml ESV(Teich) 19.3 ml EF(Teich) 69.7 % EDV(cubed) 56.8 ml ESV(cubed) 13.1 ml EF(cubed) 76.9 % LV mass(C)d 178.8 grams LV mass(C)dI 101.6 grams/m\S\2 SV(Teich) 44.4 ml SI(Teich) 25.2 ml/m\S\2 SV(cubed) 43.7 ml SI(cubed) 24.8 ml/m\S\2 LA dimension 3.8 cm Doppler Measurements and Calculations PA V2 max 73.3 cm/sec PA max PG 2.2 mmHg PA acc slope 671.1 cm/sec\S\2 PA acc time 0.10 sec TR max madan 119.9 cm/sec PA pr(Accel) 35.3 mmHg
--- NOTE | 2017-07-13 14:42 | Progress Note ---
Subjective Date of Service: Jul 13, 2017. Subjective Pt evaluation today including: conversation w/ patient, physical exam, lab review, review of studies, review of inpatient medication list Saw/examined the patient in room 286 doing well, seated in a chair Denies any problems/issues at this time Problem List Medical Problems: (1) Bilateral pulmonary embolism Status: Acute (2) Closed head injury Status: Acute (3) Fall Status: Acute (4) Falls Status: Acute (5) Rib fractures Status: Acute (6) Symptomatic anemia Status: Acute (7) Urinary tract infection Status: Acute (8) UTI (urinary tract infection) Status: Acute Medications Current Inpatient Medications Medications (Trade) Dose Ordered Sig/Génesis Route Start Time Stop Time Status Last Admin Dose Admin Al Hydrox/Mg Hydrox/Simethicone (Maalox Max Susp) 15 ml Q4H PRN PO 07/04/17 11:30 08/03/17 11:29 Magnesium Hydroxide (Milk Of Magnesia Susp) 30 ml Q12H PRN PO 07/04/17 11:30 08/03/17 11:29 Ondansetron HCl (Zofran Inj) 4 mg Q6H PRN IV 07/04/17 11:30 08/03/17 11:29 07/11/17 20:29 4 MG Nitroglycerin (Nitrostat Tab) 0.4 mg UD PRN SL 07/04/17 11:30 08/03/17 11:29 Polyethylene (Miralax Powder Packet) 17 gm DAILY PRN PO 07/04/17 11:30 08/03/17 11:29 Lidocaine (Lidoderm Patch 5%) 1 patch QAM TD 07/04/17 11:30 08/03/17 11:29 07/12/17 08:16 1 PATCH Miscellaneous (Remove Lidoderm Patch) 1 ea DAILY@21 N/A 07/04/17 21:00 08/03/17 20:59 07/12/17 20:26 1 EA Tramadol HCl (Ultram Tab) 50 mg Q4H PRN PO 07/04/17 11:30 08/03/17 11:29 Future Hold 07/05/17 02:48 50 MG Morphine Sulfate (MoRPHine SULFATE INJ) 1 mg Q4 PRN IV 07/04/17 11:30 07/18/17 11:29 07/07/17 01:39 1 MG Morphine Sulfate (MoRPHine SULFATE INJ) 2 mg Q4 PRN IV 07/04/17 11:30 07/18/17 11:29 Future Hold Atorvastatin Calcium (Lipitor Tab) 20 mg QPM PO 07/04/17 21:00 08/03/17 20:59 Future Hold 07/10/17 22:37 20 MG Escitalopram Oxalate (Lexapro Tab) 10 mg QAM PO 07/05/17 09:00 08/04/17 08:59 07/13/17 08:10 10 MG Lisinopril (Zestril Tab) 5 mg DAILY PO 07/05/17 09:00 08/04/17 08:59 07/13/17 08:09 5 MG Risperidone (Risperdal Tab) 0.25 mg DAILY PO 07/05/17 09:00 08/04/17 08:59 Future Hold 07/05/17 09:09 0.25 MG Risperidone (Risperdal Tab) 0.5 mg HS PO 07/04/17 21:00 08/03/17 20:59 Future Hold 07/04/17 20:24 0.5 MG Sodium Chloride ([place] Nasal [place]) 2 sprays HS PRN KAEL 07/04/17 12:30 08/03/17 12:29 Artificial Tears (Artificial Tears) 1 drops BID OPB 07/04/17 21:00 08/03/17 20:59 07/13/17 08:13 1 DROPS Miscellaneous Information (Order Awaiting Action) 1 ea QS N/A 07/04/17 16:00 08/03/17 15:59 07/05/17 16:00 1 EA Vancomycin HCl (Vancomycin Oral Soln) 125 mg Q6H PO 07/07/17 00:00 07/21/17 00:00 07/13/17 13:08 125 MG Raspberry (Raspberry Syrup 5ml Cup) 5 ml Q6H PO 07/07/17 00:00 07/21/17 00:00 07/13/17 13:08 5 ML Miconazole Nitrate (Desenex Powder) 1 appln QID EXT 07/08/17 13:00 08/07/17 12:59 07/13/17 13:03 1 APPLN Miconazole Nitrate (Desenex Powder) 1 appln PRN PRN EXT 07/08/17 11:30 08/07/17 11:29 Acetaminophen 650 mg/Empty Bag 65 ml @ 260 mls/hr Q6H PRN IV 07/09/17 03:00 08/08/17 02:59 07/11/17 03:51 260 MLS/HR Potassium Chloride (Klor-Con Tab) 20 meq BID PO 07/09/17 09:00 08/08/17 08:59 07/13/17 08:11 20 MEQ Aspirin/Aluminum/ Magnesium/Ca Carb (Ascriptin Tab) 325 mg DAILY PO 07/11/17 09:00 08/10/17 08:59 07/13/17 08:09 325 MG Metoprolol Succinate (Toprol Xl Tab) 12.5 mg BID PO 07/12/17 09:00 08/04/17 08:59 07/13/17 08:10 12.5 MG Acetaminophen (Tylenol Tab) 325 mg Q6H PRN PO 07/11/17 19:45 08/10/17 19:44 07/11/17 20:31 325 MG Objective Vital Signs Date Time Temp Pulse Resp B/P (MAP) Pulse Ox O2 Delivery O2 Flow Rate FiO2 07/13/17 12:00 94 Room Air 07/13/17 11:38 36.7 62 20 106/69 (81) 94 07/13/17 08:00 90 Room Air 07/13/17 07:08 37.0 52 20 132/74 (93) 90 07/13/17 04:00 Room Air 07/13/17 03:12 36.9 56 18 144/75 (98) 90 Room Air 07/13/17 00:00 Room Air 07/12/17 22:55 37.1 64 18 120/64 (82) 91 Room Air 07/12/17 20:00 Room Air 07/12/17 19:24 37.1 68 18 117/69 (85) 92 Room Air 07/12/17 16:00 94 Room Air 07/12/17 15:28 37.0 61 16 124/71 (88) 94 Room Air Physical Exam General Appearance: + pertinent finding (mild underlying dementia; pleasant) Respiratory/Chest: lungs clear, normal breath sounds, no respiratory distress, no accessory muscle use Cardiovascular: regular rate, rhythm, no edema, no murmur Extremities: normal inspection, no pedal edema Neurologic/Psychiatric: no motor/sensory deficits, alert, normal mood/affect Laboratory Results Last 24 Hours Test 07/13/17 05:50 White Blood Count 4.62 K/uL Red Blood Count 3.76 M/uL Hemoglobin 11.1 g/dL Hematocrit 33.7 % Mean Corpuscular Volume 89.6 fL Mean Corpuscular Hemoglobin 29.5 pg Mean Corpuscular Hemoglobin Concent 32.9 g/dl RDW Standard Deviation 41.8 fL RDW Coefficient of Variation 12.8 % Platelet Count 311 K/uL Mean Platelet Volume 8.9 fL Sodium Level 134 mmol/L Potassium Level 4.2 mmol/L Chloride Level 102 mmol/L Carbon Dioxide Level 26 mmol/L Anion Gap 6.0 mmol/L Blood Urea Nitrogen 10 mg/dl Creatinine 0.72 mg/dl Est Creatinine Clear Calc Drug Dose 56.4 ml/min Estimated GFR () 90.4 Estimated GFR (Non- 78.0 BUN/Creatinine Ratio 13.3 Random Glucose 97 mg/dl Calcium Level 8.8 mg/dl Total Bilirubin 0.4 mg/dl Aspartate Amino Transf (AST/SGOT) 175 U/L Alanine Aminotransferase (ALT/SGPT) 168 U/L Alkaline Phosphatase 93 U/L Total Protein 5.9 gm/dl Albumin 2.2 gm/dl Globulin 3.7 gm/dl Albumin/Globulin Ratio 0.6 Assessment and Plan This is an 82 year old female with a PMH of dementia, multiple falls, CAD s/p stenting, hypertension, hyperlipidemia, depression - presents with fall confusion. Subsequently found to have a UTI; later found to have acute bilateral pulmonary embolism and DVT as well as C. Diff colitis. Acute Bilateral Pulmonary Embolism Acute R sided DVT 07/13 - patient is doing well, denies chest pain - denies shortness of breath or abdominal pian - continue full dose aspirin 07/12 - elevated LFTs possibly related to DVT and R heart strain - will check an echo - currently off of IV heparin - continue aspirin 07/11 - d/c'd IV heparin - continue aspirin; full dose - continue Unasyn for now, continue oral Vanco - has been spiking fevers - currently afebrile throughout today - HRs are improved this afternoon 07/10 - plan to d/c heparin ggt in AM, start aspirin 325mg - plan to d/c to SNF prior to return to [facility] - will d/c with Augmentin for UTI and oral Vanco for C. Diff 07/09 - family to decide on anticoagulation - palliative care consultation pending - may need home hospice 07/08 - patient has been treated appropriately with IV heparin - patient's daughter spoke with me on 07/08 - discussion about aspirin, Coumadin, and NOACs - due to multiple falls, recommendation made against NOACs - would like to discuss with brother prior to decision; continue IV heparin in the meantime - also consulted palliative care for goals of treatment and prevention of future hospitalizations SVT - patient with tachycardic episodes - does get anxious, but confirmed SVT with elevated HRs - now on Toprol BID dosing - no tachycardia throughout today, monitor in tele Elevated LFTs - possibly secondary to diastolic CHF and fluid overload - will stop IVFs for now, repeat CXR in AM - monitor LFTs C. Diff colitis - patient currently on oral Vancomycin - diarrhea persistent and significant - will stop all laxatives/stool softeners - unfortunately she was receiving these the past few days - will add lactobacillus - continue oral Vanco - replace electrolytes Enterococcal UTI - enterococcus faecalis grown on urine culture - pansensitive organism - currently on Unasyn - will need around 10 days of treatment Multiple Falls Ambulatory Dysfunction - likely due to dementia, functional decline - PT/OT - supposed to use a walker at baseline, but does not use this due to dementia - may need rehab prior to return to [facility] Traumatic Rib Fracture - secondary to fall - avoiding narcotics if possible - lidocaine patch for pain Metabolic Encephalopathy vs. Delirium on Dementia - patient does have sundowning issues - underlying dementia - possible infectious cause of confusion - seems to be closer to baseline as per daughter CAD s/p stenting - continue b-ayaan, aspirin, statin HTN - low dose Lisinopril and b-ayaan Depression - continue Lexapro DVT ppx - IV heparin DNR/DNI - palliative care consulted - PT/OT ordered - may need rehab prior to discharge back to [facility]
[2017-07-14 04:27] VITALS: BP 147/81; PULSE 99; TEMP 36.6; O2SAT 97
[2017-07-14] MEDS: RASPBERRY SYRUP 5 ML UDP PO SCH ×2 (06:12→12:23)
[2017-07-14] MEDS: VANCOMYCIN HCL 125 MG/2.5ML SOLN PO SCH ×2 (06:12→12:22)
[2017-07-14 07:09] VITALS: BP 128/77; PULSE 57; TEMP 36.6; O2SAT 92
[2017-07-14 07:30] VITALS: PULSE 64
[2017-07-14] MEDS: LIDODERM (LIDOCAINE) PATCH 5% TD SCH (07:54)
[2017-07-14] MEDS: METOPROLOL SUCC 25MG EXT REL TAB PO SCH (07:57)
[2017-07-14] MEDS: ASPIRIN/ALUM/MAGNES/CAL CARB 325 MG TAB PO SCH (07:57)
[2017-07-14] MEDS: ARTIFICIAL TEARS OP SOLN OPB SCH (07:58)
[2017-07-14] MEDS: LISINOPRIL 5 MG TAB PO SCH (07:59)
[2017-07-14] MEDS: ESCITALOPRAM OXALATE 10 MG TAB PO SCH (08:00)
[2017-07-14] MEDS: POTASSIUM CHLORIDE 20 MEQ TABCR PO SCH (08:31)
[2017-07-14] MEDS: MICONAZOLE NITRATE POWDER 43 GM EXT SCH ×2 (08:32→12:23)
--- NOTE | 2017-07-14 10:20 | Progress Note ---
Subjective Date of Service: Jul 14, 2017. Subjective Pt evaluation today including: conversation w/ patient, physical exam, lab review, review of studies, review of inpatient medication list Saw/examined the patient in room 286 She states she feels weak and dizzy Diarrhea improving as per notes No issues at this time Problem List Medical Problems: (1) Bilateral pulmonary embolism Status: Acute (2) Closed head injury Status: Acute (3) Fall Status: Acute (4) Falls Status: Acute (5) Rib fractures Status: Acute (6) Symptomatic anemia Status: Acute (7) Urinary tract infection Status: Acute (8) UTI (urinary tract infection) Status: Acute Review of Systems Constitutional: + weakness Neurologic: + vertigo Medications Current Inpatient Medications Medications (Trade) Dose Ordered Sig/Génesis Route Start Time Stop Time Status Last Admin Dose Admin Al Hydrox/Mg Hydrox/Simethicone (Maalox Max Susp) 15 ml Q4H PRN PO 07/04/17 11:30 08/03/17 11:29 Magnesium Hydroxide (Milk Of Magnesia Susp) 30 ml Q12H PRN PO 07/04/17 11:30 08/03/17 11:29 Ondansetron HCl (Zofran Inj) 4 mg Q6H PRN IV 07/04/17 11:30 08/03/17 11:29 07/11/17 20:29 4 MG Nitroglycerin (Nitrostat Tab) 0.4 mg UD PRN SL 07/04/17 11:30 08/03/17 11:29 Polyethylene (Miralax Powder Packet) 17 gm DAILY PRN PO 07/04/17 11:30 08/03/17 11:29 Lidocaine (Lidoderm Patch 5%) 1 patch QAM TD 07/04/17 11:30 08/03/17 11:29 07/12/17 08:16 1 PATCH Miscellaneous (Remove Lidoderm Patch) 1 ea DAILY@21 N/A 07/04/17 21:00 08/03/17 20:59 07/12/17 20:26 1 EA Tramadol HCl (Ultram Tab) 50 mg Q4H PRN PO 07/04/17 11:30 08/03/17 11:29 Future Hold 07/05/17 02:48 50 MG Morphine Sulfate (MoRPHine SULFATE INJ) 1 mg Q4 PRN IV 07/04/17 11:30 07/18/17 11:29 07/07/17 01:39 1 MG Morphine Sulfate (MoRPHine SULFATE INJ) 2 mg Q4 PRN IV 07/04/17 11:30 07/18/17 11:29 Future Hold Atorvastatin Calcium (Lipitor Tab) 20 mg QPM PO 07/04/17 21:00 08/03/17 20:59 Future Hold 07/10/17 22:37 20 MG Escitalopram Oxalate (Lexapro Tab) 10 mg QAM PO 07/05/17 09:00 08/04/17 08:59 07/14/17 08:00 10 MG Lisinopril (Zestril Tab) 5 mg DAILY PO 07/05/17 09:00 08/04/17 08:59 07/14/17 07:59 5 MG Risperidone (Risperdal Tab) 0.25 mg DAILY PO 07/05/17 09:00 08/04/17 08:59 Future Hold 07/05/17 09:09 0.25 MG Risperidone (Risperdal Tab) 0.5 mg HS PO 07/04/17 21:00 08/03/17 20:59 Future Hold 07/04/17 20:24 0.5 MG Sodium Chloride ([place] Nasal [place]) 2 sprays HS PRN KAEL 07/04/17 12:30 08/03/17 12:29 Artificial Tears (Artificial Tears) 1 drops BID OPB 07/04/17 21:00 08/03/17 20:59 07/14/17 07:58 1 DROPS Miscellaneous Information (Order Awaiting Action) 1 ea QS N/A 07/04/17 16:00 08/03/17 15:59 07/05/17 16:00 1 EA Vancomycin HCl (Vancomycin Oral Soln) 125 mg Q6H PO 07/07/17 00:00 07/21/17 00:00 07/14/17 06:12 125 MG Raspberry (Raspberry Syrup 5ml Cup) 5 ml Q6H PO 07/07/17 00:00 07/21/17 00:00 07/14/17 06:12 5 ML Miconazole Nitrate (Desenex Powder) 1 appln QID EXT 07/08/17 13:00 08/07/17 12:59 07/14/17 08:32 1 APPLN Miconazole Nitrate (Desenex Powder) 1 appln PRN PRN EXT 07/08/17 11:30 08/07/17 11:29 Acetaminophen 650 mg/Empty Bag 65 ml @ 260 mls/hr Q6H PRN IV 07/09/17 03:00 08/08/17 02:59 07/11/17 03:51 260 MLS/HR Potassium Chloride (Klor-Con Tab) 20 meq BID PO 07/09/17 09:00 08/08/17 08:59 07/14/17 08:31 20 MEQ Aspirin/Aluminum/ Magnesium/Ca Carb (Ascriptin Tab) 325 mg DAILY PO 07/11/17 09:00 08/10/17 08:59 07/14/17 07:57 325 MG Metoprolol Succinate (Toprol Xl Tab) 12.5 mg BID PO 07/12/17 09:00 08/04/17 08:59 07/14/17 07:57 12.5 MG Acetaminophen (Tylenol Tab) 325 mg Q6H PRN PO 07/11/17 19:45 08/10/17 19:44 07/11/17 20:31 325 MG Objective Vital Signs Date Time Temp Pulse Resp B/P (MAP) Pulse Ox O2 Delivery O2 Flow Rate FiO2 07/14/17 07:09 36.6 57 16 128/77 (94) 92 07/14/17 04:27 36.6 99 18 147/81 (103) 97 Room Air 07/14/17 04:00 Room Air 07/14/17 00:00 Room Air 07/13/17 22:26 36.7 53 18 147/83 (104) 93 Room Air 07/13/17 20:00 Room Air 07/13/17 19:16 36.7 65 16 110/67 (81) 96 Room Air 07/13/17 16:00 96 Room Air 07/13/17 15:14 36.6 64 20 120/72 (88) 96 07/13/17 12:00 94 Room Air 07/13/17 11:38 36.7 62 20 106/69 (81) 94 Physical Exam General Appearance: no apparent distress Respiratory/Chest: no respiratory distress, no accessory muscle use Cardiovascular: regular rate, rhythm, no edema, no murmur Extremities: normal inspection, no pedal edema Neurologic/Psychiatric: + pertinent finding (mild underlying dementia) Assessment and Plan This is an 82 year old female with a PMH of dementia, multiple falls, CAD s/p stenting, hypertension, hyperlipidemia, depression - presents with fall confusion. Subsequently found to have a UTI; later found to have acute bilateral pulmonary embolism and DVT as well as C. Diff colitis. Acute Bilateral Pulmonary Embolism Acute R sided DVT 07/14 - continue aspirin - no dyspnea noted - afebrile - LFTs continue to be elevated, possibly related to R heart strain 07/13 - patient is doing well, denies chest pain - denies shortness of breath or abdominal pian - continue full dose aspirin 07/12 - elevated LFTs possibly related to DVT and R heart strain - will check an echo - currently off of IV heparin - continue aspirin 07/11 - d/c'd IV heparin - continue aspirin; full dose - continue Unasyn for now, continue oral Vanco - has been spiking fevers - currently afebrile throughout today - HRs are improved this afternoon 07/10 - plan to d/c heparin ggt in AM, start aspirin 325mg - plan to d/c to SNF prior to return to [facility] - will d/c with Augmentin for UTI and oral Vanco for C. Diff 07/09 - family to decide on anticoagulation - palliative care consultation pending - may need home hospice 07/08 - patient has been treated appropriately with IV heparin - patient's daughter spoke with me on 07/08 - discussion about aspirin, Coumadin, and NOACs - due to multiple falls, recommendation made against NOACs - would like to discuss with brother prior to decision; continue IV heparin in the meantime - also consulted palliative care for goals of treatment and prevention of future hospitalizations SVT - patient with tachycardic episodes - does get anxious, but confirmed SVT with elevated HRs - now on Toprol BID dosing - no tachycardia throughout today, monitor in tele Elevated LFTs - possibly secondary to diastolic CHF and fluid overload - will stop IVFs for now, repeat CXR in AM - monitor LFTs C. Diff colitis - patient currently on oral Vancomycin - diarrhea persistent and significant - will stop all laxatives/stool softeners - unfortunately she was receiving these the past few days - will add lactobacillus - continue oral Vanco - replace electrolytes Enterococcal UTI - enterococcus faecalis grown on urine culture - pansensitive organism - currently on Unasyn - will need around 10 days of treatment Multiple Falls Ambulatory Dysfunction - likely due to dementia, functional decline - PT/OT - supposed to use a walker at baseline, but does not use this due to dementia - may need rehab prior to return to [facility] Traumatic Rib Fracture - secondary to fall - avoiding narcotics if possible - lidocaine patch for pain Metabolic Encephalopathy vs. Delirium on Dementia - patient does have sundowning issues - underlying dementia - possible infectious cause of confusion - seems to be closer to baseline as per daughter CAD s/p stenting - continue b-ayaan, aspirin, statin HTN - low dose Lisinopril and b-ayaan Depression - continue Lexapro DVT ppx - IV heparin DNR/DNI - palliative care consulted - PT/OT ordered - may need rehab prior to discharge back to [facility]
[2017-07-14 11:58] VITALS: BP 121/72; PULSE 54; TEMP 36.5; O2SAT 95
[2017-07-14] MEDS ORDERED: ULT50X PO (12:09)
[2017-07-14] MEDS ORDERED: MCTP EXT (12:09)
[2017-07-14] MEDS ORDERED: VANC1CAP19 PO (12:09)
--- NOTE | 2017-07-14 12:25 | Discharge Instructions ---
Discharge Instructions Date of Service Jul 14, 2017. Admission Reason for Admission: Fall, Pulmonary Embolism Discharge Discharge Diagnosis / Problem: Pulmonary Embolism (blood clot in the lung) Discharge Goals Goal(s): Decrease discomfort, Improve function, Diagnostic testing, Therapeutic intervention Activity Recommendations Activity Limitations: resume your previous activity . Instructions / Follow-Up Instructions / Follow-Up Please follow-up with your primary care doctor after stay in rehab/nursing facility Patient is now taking aspirin 325mg daily monitor for any bleeding Hold Lipitor; recheck LFTs in one week; if LFTs are improved, can restart Lipitor 20mg daily Current Hospital Diet Patient's current hospital diet: AHA Diet (Heart Healthy) Discharge Diet Recommended Diet: AHA Diet (Heart Healthy) Pending Studies Studies pending at discharge: no Laboratory Results Lipid Panel Test 06/10/17 05:55 Range/Units Triglycerides Level 92 0-150 mg/dl Cholesterol Level 135 0-200 mg/dl HDL Cholesterol 43 mg/dl Cholesterol/HDL Ratio 3.1 LDL Cholesterol, Calculated 74 mg/dl Medical Emergencies . Who to Call and When: Medical Emergencies: If at any time you feel your situation is an emergency, please call 911 immediately. . Non-Emergent Contact Non-Emergency issues call your: Primary Care Provider . . "Provider Documentation" section prepared by Shine Carlson. .
--- NOTE | 2017-07-14 12:28 | Discharge Summary ---
Discharge Summary Date of Service Jul 14, 2017. Discharge Summary Admission Date: Jul 04, 2017 at 11:26 Discharge Date: Jul 14, 2017 Discharge Disposition: [facility] facility Principal Diagnosis: Acute Bilateral Pulmonary Embolism Acute R sided DVT SVT Elevated LFTs C. Diff colitis Enterococcal UTI Multiple Falls Ambulatory Dysfunction Traumatic Rib Fracture Metabolic Encephalopathy vs. Delirium on Dementia CAD s/p stenting HTN Depression Medication Reconciliation New Medications: Miconazole Nitrate (Desenex Shake Powder) 43 Appln/43 Gm Powd 1 APPLN EXT QID for 30 Days, #1 TUBE Tramadol HCl (Tramadol HCl) 50 Mg Tab 50 MG PO Q4H PRN for Pain for 3 Days, #12 TAB Vancomycin Hcl (Vancocin Hcl) 125 Mg Cap 125 MG PO QID for 7 Days, #28 CAP Continued Medications: Acetaminophen (Tylenol) 500 Mg Tab 500 MG PO Q4 PRN for Pain or Fever, TAB max 3gm/24hr Aspirin (Aspirin Ec) 81 Mg Tab 81 MG PO DAILY Diphenhydramine Hcl (Banophen) 25 Mg Tab 25 MG PO HS PRN for Itching Escitalopram (Lexapro) 10 Mg Tab 10 MG PO QAM, TAB Ketotifen Fumarate (Ophth) (Thera Tears Allergy Eye I) 0.025 % Clif 2 DROPS OPB BID PRN for DRYNESS Lisinopril (Lisinopril) 5 Mg Tab 5 MG PO DAILY Lutein (Lutein) 6 Mg Cap 12 MG PO DAILY Metoprolol Succinate (Toprol Xl) 25 Mg Tab 12.5 MG PO DAILY for 30 Days, #15 TAB 5 Refills Nitroglycerin (Nitrostat) 0.4 Mg Tab 0.4 MG UT UD PRN for Chest Pain, BTL Polyethylene Glycol-Propylene (Systane) 1 Kimmy Kimmy 1 DROPS OPB BID, #30 ML 6 Refills Risperidone (Risperdal) 0.5 Mg Tab 1 TAB PO HS for 30 Days, #30 TAB 2 Refills Risperidone (Risperidone) 0.5 Mg Tab 0.25 MG PO DAILY Saline (Saline Mist) 0.65 % Spr 2 SPRAYS KAEL HS PRN for DRYNESS Discontinued Medications: Atorvastatin (Lipitor) 20 Mg Tab 20 MG PO QPM, TAB Admission Information HPI (per Admitting provider): Pt is 82 y/o F with PMH CAD S/P stent, HTN, dyslipidemia, depression, frequent falls presented to the ER from [facility] with complaint of fall. Patient was admitted 06/24/17 through 07/01/17 for altered mental status, bradycardia, UTI , falls. Negative head and chest CT at that time. Daughter reports patient with confusion for some time reports the patient has hallucinations during hospitalizations. Daughter reports last night patient did call her and said that she fell. Today patient is denying any falls and reports that she does not remember. Daughter reports that patient has been having forgetfulness. report from [facility] after fall last night patient began complaining of left rib pain complaining of rib pain this morning. Patient reports has been eating and drinking normally, and reports that she has tried to increase her water intake as she has been known to not drink enough in the past. Patient reports during her last admission that she choked and had to have the Heimlich maneuver. Denies any recurrent choking. patient denies any headaches, dizziness , vision changes, shortness of breath, hills, diaphoresis, N/V/D/C, syncope, neck pain, SOB, orthopnea, palpitations, cough, sore throat, otalgia, rhinorrhea, abdominal pain, paresthesias, extremity weakness, extremity edema, extremity pain, rashes, urinary symptoms. Echo 06/2017: EF: 60-65%, normal left ventricular wall motion, normal ventricle size and function, mild aortic valve sclerosis, mild mitral regurgitation, grade II diastolic dysfunction. Physical Exam (per Admitting): General Appearance: WD/WN, no apparent distress Head: normocephalic, + pertinent finding (left occipital scalp approximate 4 mm length laceration with closed edge approximation. Face: Yellow/green/blue ecchymosis noted periorbital falls last week.) Eyes: normal inspection, PERRL, EOMI, sclerae normal ENT: hearing grossly normal, pharynx normal, + pertinent finding (Mucous membranes slightly dry.) Neck: supple, no JVD, trachea midline, + pertinent finding (No spinous process tenderness to palpation. Range of motion intact.) Respiratory/Chest: lungs clear, normal breath sounds, no respiratory distress, no accessory muscle use, + pertinent finding (Left lateral lower ribs with tenderness to palpation, no crepitus. No chest wall ecchymosis noted. Remaining chest nontender.) Cardiovascular: regular rate, rhythm (Rate 62), no murmur, normal peripheral pulses Abdomen/GI: normal bowel sounds, non tender, soft Back: normal inspection, + pertinent finding (Nontender) Extremities/Musculoskelatal: no calf tenderness, normal capillary refill, no pedal edema, normal range of motion, non-tender, + pertinent finding (Right posterior shoulder with green/blue ecchymosis. Nontender to palpation. Full active range of motion of bilateral upper and lower extremities without tenderness. No erythema noted to BLE) Neurologic/Psych: alert, + pertinent finding (Oriented to person only at this time. Patient pleasant and cooperative.) Skin: warm/dry, + pertinent finding (See above current areas of ecchymosis.) Hospital Course This is an 82 year old female with a PMH of dementia, multiple falls, CAD s/p stenting, hypertension, hyperlipidemia, depression - presents with fall confusion. Subsequently found to have a UTI; later found to have acute bilateral pulmonary embolism and DVT as well as C. Diff colitis. Acute Bilateral Pulmonary Embolism Acute R sided DVT 07/14 - continue aspirin - no dyspnea noted - afebrile - LFTs continue to be elevated, possibly related to R heart strain 07/13 - patient is doing well, denies chest pain - denies shortness of breath or abdominal pian - continue full dose aspirin 07/12 - elevated LFTs possibly related to DVT and R heart strain - will check an echo - currently off of IV heparin - continue aspirin 07/11 - d/c'd IV heparin - continue aspirin; full dose - continue Unasyn for now, continue oral Vanco - has been spiking fevers - currently afebrile throughout today - HRs are improved this afternoon 07/10 - plan to d/c heparin ggt in AM, start aspirin 325mg - plan to d/c to SNF prior to return to [facility] - will d/c with Augmentin for UTI and oral Vanco for C. Diff 07/09 - family to decide on anticoagulation - palliative care consultation pending - may need home hospice 07/08 - patient has been treated appropriately with IV heparin - patient's daughter spoke with me on 07/08 - discussion about aspirin, Coumadin, and NOACs - due to multiple falls, recommendation made against NOACs - would like to discuss with brother prior to decision; continue IV heparin in the meantime - also consulted palliative care for goals of treatment and prevention of future hospitalizations SVT - patient with tachycardic episodes - does get anxious, but confirmed SVT with elevated HRs - now on Toprol BID dosing - no tachycardia throughout today, monitor in tele Elevated LFTs - possibly secondary to diastolic CHF and fluid overload - will stop IVFs for now, repeat CXR in AM - monitor LFTs C. Diff colitis - patient currently on oral Vancomycin - diarrhea persistent and significant - will stop all laxatives/stool softeners - unfortunately she was receiving these the past few days - will add lactobacillus - continue oral Vanco - replace electrolytes Enterococcal UTI - enterococcus faecalis grown on urine culture - pansensitive organism - currently on Unasyn - will need around 10 days of treatment Multiple Falls Ambulatory Dysfunction - likely due to dementia, functional decline - PT/OT - supposed to use a walker at baseline, but does not use this due to dementia - may need rehab prior to return to [facility] Traumatic Rib Fracture - secondary to fall - avoiding narcotics if possible - lidocaine patch for pain Metabolic Encephalopathy vs. Delirium on Dementia - patient does have sundowning issues - underlying dementia - possible infectious cause of confusion - seems to be closer to baseline as per daughter CAD s/p stenting - continue b-ayaan, aspirin, statin HTN - low dose Lisinopril and b-ayaan Depression - continue Lexapro DVT ppx - IV heparin DNR/DNI - palliative care consulted - PT/OT ordered - may need rehab prior to discharge back to [facility] Total time spent on discharge = 40 minutes This includes examination of the patient, discharge planning, medication reconciliation, and communication with other providers. Discharge Instructions Please follow-up with your primary care doctor after stay in rehab/nursing facility Patient is now taking aspirin 325mg daily monitor for any bleeding Hold Lipitor; recheck LFTs in one week; if LFTs are improved, can restart Lipitor 20mg daily
[2017-07-14 12:32] VITALS: BP 121/72; PULSE 54; TEMP 36.5; O2SAT 95
[2017-07-14 13:17] LABS: ALBUMIN 2.2 gm/dl (3.4-5.0); CALCIUM 9.1 mg/dl (8.5-10.1); CREATININE 0.71 mg/dl (0.60-1.20); POTASSIUM 4.3 mmol/L (3.5-5.1)
== END 2017-07-14 13:40 | disposition home or self-care (01) | DRG 371 ==
LOC: C.EDA 09:10 → EDBD 09:10 → UNDOADMIN 11:26 → C.MED 11:26 → ENRESERV 11:51
PROVIDERS: ADMIT Hospitalist; ATTEND Family Medicine
DX: A04.72 Enterocolitis due to Clostridium difficile, not specified as recurrent (principal); I26.99 Other pulmonary embolism without acute cor pulmonale; G93.41 Metabolic encephalopathy; S22.42XA Multiple fractures of ribs, left side, initial encounter for closed fracture; I82.403 Acute embolism and thrombosis of unspecified deep veins of lower extremity, bilateral; N39.0 Urinary tract infection, site not specified; I25.10 Atherosclerotic heart disease of native coronary artery without angina pectoris; E87.6 Hypokalemia; I10 Essential (primary) hypertension; E78.5 Hyperlipidemia, unspecified; F32.9 Major depressive disorder, single episode, unspecified; B95.2 Enterococcus as the cause of diseases classified elsewhere; R41.82 Altered mental status, unspecified; W19.XXXA Unspecified fall, initial encounter; Z91.81 History of falling; Z82.49 Family history of ischemic heart disease and other diseases of the circulatory system; Z83.3 Family history of diabetes mellitus; Z88.6 Allergy status to analgesic agent; Z88.1 Allergy status to other antibiotic agents; Z88.5 Allergy status to narcotic agent; Z88.2 Allergy status to sulfonamides; Z88.7 Allergy status to serum and vaccine; Z95.5 Presence of coronary angioplasty implant and graft

== ENCOUNTER 2017-08-03 07:15 | Emergency (ER) | payer OTHER ==
[~2017-08-03] VITALS: Ht 170.2 cm; Wt 66.2 kg
[~2017-08-03 07:15] MED LIST changes: -ATOR-22 PO; -DIPH25CA45 PO; +DIPH25TA28 PO; +MCTP EXT; +METO-478 PO; -METO25TA56 PO; +RISP-99 PO; +RISP0.5T9 PO; -RSPODT5 PO; -TPRSR25 PO; +ULT50X PO; +VANC1CAP19 PO
[2017-08-03 07:22] VITALS: TEMP 37; Ht 170.2 cm; Wt 66.2 kg
[2017-08-03] MEDS ORDERED: ASPI325T39 PO (07:41)
[2017-08-03 08:15] LABS: BASO % 0.2 %; BASO ABS # 0.01 K/uL (0-0.2); EOS % 3.1 %; EOS ABS # 0.18 K/uL (0-0.5); HEMATOCRIT 32.7 % (37-47); IG# 0.02 K/uL (0.00-0.02); LYMPH % 22.8 %; LYMPH ABS # 1.34 K/uL (1.2-3.4); MEAN CELL VOLUME 91.3 fL (80-100); MEAN CORPUSCULAR HEMOGLOBIN 30.7 pg (25-34); MEAN CORPUSCULAR HGB CONC 33.6 g/dl (32-36); MEAN PLATELET VOLUME 9.3 fL (7.4-10.4); MONO % 8.8 %; MONO ABS # 0.52 K/uL (0.11-0.59); NEUT % 64.8 %; NEUT ABS # 3.81 K/uL (1.4-6.5); PLATELET COUNT 253 K/uL (130-400); RED CELL DISTRIBUTION WIDTH CV 13.2 % (11.5-14.5); RED CELL DISTRIBUTION WIDTH SD 44.2 fL (36.4-46.3); WHITE BLOOD COUNT 5.88 K/uL (4.8-10.8)
[2017-08-03 08:29] LABS: ALBUMIN 2.8 gm/dl (3.4-5.0); CALCIUM 9.7 mg/dl (8.5-10.1); CREATININE 0.76 mg/dl (0.60-1.20); POTASSIUM 4.3 mmol/L (3.5-5.1)
[2017-08-03 08:32] LABS: TOTAL PROTEIN 6.3 gm/dl (6.4-8.2)
--- NOTE | 2017-08-03 08:34 | DIAGNOSTIC IMAGING REPORT ---
HEAD WITHOUT CONTRAST (CT) CT DOSE: HISTORY: Trauma. Mental status change. chi, fall TECHNIQUE: Multiaxial CT images of the head were performed without the use of intravenous contrast. A dose lowering technique was utilized adhering to the principles of ALARA. Comparison: 07/12/2017 Findings: The paranasal sinuses and mastoid air cells are clear. The calvarium and skull base are intact. The ventricles and sulci are within normal limits. There is no mass, hematoma, midline shift, or acute infarct. Impression: No acute intracranial abnormality. The above report was generated using voice recognition software. It may contain grammatical, syntax or spelling errors. Electronically signed by: Quinn Busch M.D. 08/03/2017 8:33 AM Dictated Date/Time: 08/03/2017 8:32 AM
--- NOTE | 2017-08-03 08:39 | DIAGNOSTIC IMAGING REPORT ---
CERVICAL SPINE W/O CT DOSE: 891.60 mGy.cm HISTORY: Trauma. Pain. fall, chi TECHNIQUE: Multiaxial CT images of the cervical spine were performed and reformatted in the sagittal and coronal plane without the use of contrast. A dose lowering technique was utilized adhering to the principles of ALARA. COMPARISON: 07/04/2017 FINDINGS: No fractures. No subluxation. Prevertebral soft tissues and the C1-C2 interval are intact. No pneumothorax. Moderate degenerative change IMPRESSION: No fractures within the cervical spine. Moderate degenerative change The above report was generated using voice recognition software. It may contain grammatical, syntax or spelling errors. Electronically signed by: Quinn Busch M.D. 08/03/2017 8:37 AM Dictated Date/Time: 08/03/2017 8:33 AM
--- NOTE | 2017-08-03 08:54 | DIAGNOSTIC IMAGING REPORT ---
L RIBS UNILATERAL WITH PA CHEST CLINICAL HISTORY: L rib pain s/p fall trauma. Pain. COMPARISON STUDY: 07/12/2017 FINDINGS: Fractures of the left seventh through 10th ribs. No evidence pneumothorax. Lungs are clear. Diaphragms are smooth. IMPRESSION: Fractures left seventh through 10th ribs. no evidence pneumothorax. The above report was generated using voice recognition software. It may contain grammatical, syntax or spelling errors. Electronically signed by: Quinn Busch M.D. 08/03/2017 8:53 AM Dictated Date/Time: 08/03/2017 8:51 AM
--- NOTE | 2017-08-03 10:33 | EMERGENCY ROOM VISIT NOTE ---
History Report prepared by Genet: Zhanna Bishop Under the Supervision of: Dr. Yoko Funes M.D. First contact with patient: 07:29 Chief Complaint: FALL Stated Complaint: FALL History of Present Illness The patient is an 82 year old female who presents to the Emergency Room with complaints of an episode of a fall occurring this morning. The patient states that she slipped and fell against the bathroom sink. She reports that she hit her head on the granite counter top. She states that she has a throbbing headache right now. The patient complains of a cough, knee pain, back pain, and lower left sided rib pain. She states that her knees hurt from crawling around on the floor to get to a phone this morning and states that her back hurts because she slipped yesterday. She reports that her rib pain is from breaking her ribs in her last fall. The patient denies hip pain. The patient states that she does not remember the last fall she had, but states that she knows it caused a lot of problems for her. Per EMR records, the patient fell last month and had a rib fracture. She was diagnosed with a DVT and PE. She was placed on Aspirin, but it was decided against to be placed on oral coagulation due to her frequent falls. There was a palliative care consult at that time. Source of History: patient Onset: this morning Position: other (global) Quality: other (fall) Timing: other (episode) Associated Symptoms: + headache, + cough, + back pain Note: The patient complains of knee pain and rib pain. The patient denies hip pain. Review of Systems See HPI for pertinent positives & negatives. A total of 10 systems reviewed and were otherwise negative. 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 (3) Diverticulosis (4) Dyslipidemia (5) Fall (6) GERD (gastroesophageal reflux disease) (7) Hx of deep venous thrombosis (8) Hx pulmonary embolism (9) Hypertension (10) Hypothyroidism (11) Major depressive disorder with psychotic features (12) Mild cognitive impairment (13) Pulmonary embolism Surgical Problems: (1) Status post appendectomy (2) Status post coronary artery stent placement (3) Status post hysterectomy (4) Status post tonsillectomy Family History Coronary artery disease FATHER Dementia MOTHER Diabetes mellitus MOTHER Social History Smoking Status: Never Smoker Drug Use: none Marital Status: Housing Status: assisted living Occupation Status: retired Current/Historical Medications Scheduled Aspirin (Aspirin Ec), 325 MG PO DAILY Escitalopram (Lexapro), 10 MG PO QAM Lisinopril (Lisinopril), 5 MG PO DAILY Lutein (Lutein), 12 MG PO DAILY Metoprolol Succinate (Toprol Xl), 12.5 MG PO DAILY Polyethylene Glycol-Propylene (Systane), 1 DROPS OPB BID Scheduled PRN Acetaminophen (Tylenol), 500 MG PO Q4 PRN for Pain or Fever Diphenhydramine Hcl (Banophen), 25 MG PO HS PRN for Itching Ketotifen Fumarate (Ophth) (Thera Tears Allergy Eye I), 2 DROPS OPB BID PRN for DRYNESS Nitroglycerin (Nitrostat), 0.4 MG UT UD PRN for Chest Pain Saline (Saline Mist), 2 SPRAYS KAEL HS PRN for DRYNESS Tramadol HCl (Tramadol HCl), 50 MG PO Q4H PRN for Pain Allergies Coded Allergies: Ciprofloxacin (Verified Allergy, Unknown, UNKNOWN, 08/03/17) Hydrocodone (Verified Allergy, Unknown, unknown, 08/03/17) Latex1 -Allergic Contact Dermititis (Verified Allergy, Unknown, unknown, ) Magnesium Salicylate (Verified Allergy, Unknown, UNKNOWN, 08/03/17) Sulfa Antibiotics (Verified Allergy, Unknown, UNKNOWN, 08/03/17) Sulfamethoxazole w/Trimethoprim (Verified Allergy, Unknown, UNKNOWN, ) Tetanus Toxoid (Verified Allergy, Unknown, unknown, 08/03/17) Physical Exam Vital Signs Date Time Temp Pulse Resp B/P (MAP) Pulse Ox O2 Delivery O2 Flow Rate FiO2 08/03/17 10:35 59 12 124/75 99 08/03/17 09:45 56 14 96 08/03/17 09:30 56 10 98 08/03/17 09:15 56 12 98 08/03/17 08:51 60 13 130/59 99 Room Air 08/03/17 08:48 130/59 08/03/17 08:15 57 1 95 08/03/17 08:00 57 28 98 08/03/17 07:45 56 21 97 08/03/17 07:30 57 14 97 4/22/18 07:24 55 08/03/17 07:22 37.0 58 13 131/68 97 Room Air 08/03/17 07:20 131/68 Physical Exam Vital signs reviewed. General: Well-appearing 82 yo female, in no significant distress. HEENT: No scleral icterus, PERRLA, neck supple. Healing ecchymosis to the right periorbital region inferiorly. Cardiovascular: Regular rate and rhythm, no extra sounds. Pulmonary: Clear to auscultation bilaterally, normal work of breathing. Abdomen: Soft, nontender, nondistended, positive bowel sounds. Musculoskeletal: Atraumatic, no significant deformity. Cervical, thoracic and lumbar spine are palpated, nontender, no step-off or deformity appreciated. No tenderness to palpation over the bilateral rib cage. Neurologic: Patient awake alert and oriented x 3, full strength in all 4 extremities. Skin: Warm, dry, no rash. No significant abrasions/laceration. Medical Decision & Procedures ER Provider Diagnostic Interpretation: Radiology results as stated below per my review and radiologist interpretation: HEAD WITHOUT CONTRAST (CT) CT DOSE: HISTORY: Trauma. Mental status change. chi, fall TECHNIQUE: Multiaxial CT images of the head were performed without the use of intravenous contrast. A dose lowering technique was utilized adhering to the principles of ALARA. Comparison: 07/12/2017 Findings: The paranasal sinuses and mastoid air cells are clear. The calvarium and skull base are intact. The ventricles and sulci are within normal limits. There is no mass, hematoma, midline shift, or acute infarct. Impression: No acute intracranial abnormality. The above report was generated using voice recognition software. It may contain grammatical, syntax or spelling errors. Electronically signed by: Quinn Busch M.D. 08/03/2017 8:33 AM Dictated Date/Time: 08/03/2017 8:32 AM CERVICAL SPINE W/O CT DOSE: 891.60 mGy.cm HISTORY: Trauma. Pain. fall, chi TECHNIQUE: Multiaxial CT images of the cervical spine were performed and reformatted in the sagittal and coronal plane without the use of contrast. A dose lowering technique was utilized adhering to the principles of ALARA. COMPARISON: 07/04/2017 FINDINGS: No fractures. No subluxation. Prevertebral soft tissues and the C1-C2 interval are intact. No pneumothorax. Moderate degenerative change IMPRESSION: No fractures within the cervical spine. Moderate degenerative change The above report was generated using voice recognition software. It may contain grammatical, syntax or spelling errors. Electronically signed by: Quinn Busch M.D. 08/03/2017 8:37 AM Dictated Date/Time: 08/03/2017 8:33 AM L RIBS UNILATERAL WITH PA CHEST CLINICAL HISTORY: L rib pain s/p fall trauma. Pain. COMPARISON STUDY: 07/12/2017 FINDINGS: Fractures of the left seventh through 10th ribs. No evidence pneumothorax. Lungs are clear. Diaphragms are smooth. IMPRESSION: Fractures left seventh through 10th ribs. no evidence pneumothorax. The above report was generated using voice recognition software. It may contain grammatical, syntax or spelling errors. Electronically signed by: Quinn Busch M.D. 08/03/2017 8:53 AM Dictated Date/Time: 08/03/2017 8:51 AM Laboratory Results 08/03/17 08:00 Red Blood Count 3.58, Mean Corpuscular Volume 91.3, Mean Corpuscular Hemoglobin 30.7, Mean Corpuscular Hemoglobin Concent 33.6, Mean Platelet Volume 9.3, Neutrophils (%) (Auto) 64.8, Lymphocytes (%) (Auto) 22.8, Monocytes (%) (Auto) 8.8, Eosinophils (%) (Auto) 3.1, Basophils (%) (Auto) 0.2, Neutrophils # (Auto) 3.81, Lymphocytes # (Auto) 1.34, Monocytes # (Auto) 0.52, Eosinophils # (Auto) 0.18, Basophils # (Auto) 0.01 08/03/17 08:00 Test 08/03/17 08:00 08/03/17 09:00 White Blood Count 5.88 K/uL (4.8-10.8) Red Blood Count 3.58 M/uL (4.2-5.4) Hemoglobin 11.0 g/dL (12.0-16.0) Hematocrit 32.7 % (37-47) Mean Corpuscular Volume 91.3 fL (80-100) Mean Corpuscular Hemoglobin 30.7 pg (25-34) Mean Corpuscular Hemoglobin Concent 33.6 g/dl (32-36) Platelet Count 253 K/uL (130-400) Mean Platelet Volume 9.3 fL (7.4-10.4) Neutrophils (%) (Auto) 64.8 % Lymphocytes (%) (Auto) 22.8 % Monocytes (%) (Auto) 8.8 % Eosinophils (%) (Auto) 3.1 % Basophils (%) (Auto) 0.2 % Neutrophils # (Auto) 3.81 K/uL (1.4-6.5) Lymphocytes # (Auto) 1.34 K/uL (1.2-3.4) Monocytes # (Auto) 0.52 K/uL (0.11-0.59) Eosinophils # (Auto) 0.18 K/uL (0-0.5) Basophils # (Auto) 0.01 K/uL (0-0.2) RDW Standard Deviation 44.2 fL (36.4-46.3) RDW Coefficient of Variation 13.2 % (11.5-14.5) Immature Granulocyte % (Auto) 0.3 % Immature Granulocyte # (Auto) 0.02 K/uL (0.00-0.02) Anion Gap 5.0 mmol/L (3-11) Est Creatinine Clear Calc Drug Dose 55.5 ml/min Estimated GFR () 84.7 Estimated GFR (Non- 73.1 BUN/Creatinine Ratio 14.9 (10-20) Calcium Level 9.7 mg/dl (8.5-10.1) Total Bilirubin 0.6 mg/dl (0.2-1) Direct Bilirubin 0.1 mg/dl (0-0.2) Aspartate Amino Transf (AST/SGOT) 21 U/L (15-37) Alanine Aminotransferase (ALT/SGPT) 17 U/L (12-78) Alkaline Phosphatase 113 U/L (45-117) Total Protein 6.3 gm/dl (6.4-8.2) Albumin 2.8 gm/dl (3.4-5.0) Urine Color YELLOW Urine Appearance CLOUDY (CLEAR) Urine pH 6.0 (4.5-7.5) Urine Specific [place] 1.011 (1.000-1.030) Urine Protein NEG (NEG) Urine Glucose (UA) NEG (NEG) Urine Ketones NEG (NEG) Urine Occult Blood NEG (NEG) Urine Nitrite POS (NEG) Urine Bilirubin NEG (NEG) Urine Urobilinogen NEG (NEG) Urine Leukocyte Esterase LARGE (NEG) Urine WBC (Auto) >30 /hpf (0-5) Urine RBC (Auto) 0-4 /hpf (0-4) Urine Hyaline Casts (Auto) 1-5 /lpf (0-5) Urine Epithelial Cells (Auto) 10-20 /lpf (0-5) Urine Bacteria (Auto) 2+ (NEG) Laboratory results per my review. ECG Per My Interpretation Indication: back/shoulder pain Rate (beats per minute): 56 Rhythm: sinus bradycardia Findings: no acute ischemic change, no ectopy, other (previous inferior infarct ) ED Course 0737: Past medical records reviewed. The patient was evaluated in room A12B. A complete history and physical examination was performed. 0959: Upon reevaluation, the patient appeared to have improvement of her symptoms. I discussed findings with her and her family. They verbalized agreement of the treatment plan. The patient was discharged home. Medical Decision DDx: Intracranial injury, cervical spine injury, intrathoracic injury, intra- abdominal injury, musculoskeletal injury. This pt was evaluated and appeared to be in no distress. IV access was obtained and lab work was drawn. Pt was placed on the glycerin supervisor. CT scan of the head and neck were performed and reveals no evidence of acute intracranial abnormality or bony fracture. Chest x-ray was performed and confirms rib fractures of left 7 through 10. There is no evidence of pneumothorax. Patient was ambulatory with minimal assistance. She does have some unsteady gait. I did speak with the patient's daughter. They are comfortable with her when [facility] although it is a personal care facility. She states they have consulted palliative care and have a plan in place. Patient was discharged to the care of her daughter and will return to the ER for worsening of symptoms or any medical concerns. Medication Reconcilliation Current Medication List: was personally reviewed by me Blood Pressure Screening Patient's blood pressure: Normal blood pressure Blood pressure disposition: Did not require urgent referral Impression Primary Impression: Fall Additional Impression: Rib fractures Scribe Attestation The scribe's documentation has been prepared under my direction and personally reviewed by me in its entirety. I confirm that the note above accurately reflects all work, treatment, procedures, and medical decision making performed by me. Departure Information Dispostion Home / Self-Care Referrals William Pope D.O. (PCP) Forms HOME CARE DOCUMENTATION FORM, IMPORTANT VISIT INFORMATION Patient Instructions My [facility] If You Can Additional Instructions Diagnosis: Recurrent falls, closed head injury, rib fractures Please continue pain management as needed, Tylenol 650 mg every 6 hours as needed for pain. Use caution with ambulation, please use your walker or assistance. Follow-up with your physician this week for reevaluation. Return to the ER for worsening of symptoms or any medical concerns. Problem Qualifiers Additional Impression: Rib fractures Encounter type: subsequent encounter Rib fracture type: multiple ribs Fracture type: closed Laterality: left
[2017-08-03 10:35] VITALS: BP 124/75; PULSE 59; O2SAT 99
--- NOTE | 2017-08-05 15:37 | Pharmacy Progress Note ---
ED Pharmacist Culture FollowUp Date of Service: Aug 05, 2017. Called patient's home phone number/ [facility] regarding urine culture. Prescription for keflex 500 mg BID x 7 days faxed to [phone]. Case discussed with Dr. Funes, who is the prescribing provider.
== END 2017-08-03 10:36 | disposition home or self-care (01) ==
LOC: EDBD 07:15 → C.EDA 07:16
DX: S22.42XA Multiple fractures of ribs, left side, initial encounter for closed fracture (principal); R51 Headache; R05 Cough; R00.1 Bradycardia, unspecified; I25.10 Atherosclerotic heart disease of native coronary artery without angina pectoris; E78.5 Hyperlipidemia, unspecified; E03.9 Hypothyroidism, unspecified; K21.9 Gastro-esophageal reflux disease without esophagitis; F03.90 Unspecified dementia, unspecified severity, without behavioral disturbance, psychotic disturbance, mood disturbance, and anxiety; Z79.82 Long term (current) use of aspirin; Z79.899 Other long term (current) drug therapy; Z86.711 Personal history of pulmonary embolism; Z88.1 Allergy status to other antibiotic agents; Z88.2 Allergy status to sulfonamides; Z88.7 Allergy status to serum and vaccine; Z88.8 Allergy status to other drugs, medicaments and biological substances; Z91.040 Latex allergy status; W01.190A Fall on same level from slipping, tripping and stumbling with subsequent striking against furniture, initial encounter

== ENCOUNTER 2017-08-07 09:44 | Emergency (ER) | payer OTHER ==
[~2017-08-07] VITALS: Ht 167.6 cm; Wt 68.2 kg
[~2017-08-07 09:44] MED LIST changes: +ASPI325T39 PO; -ASPI81TA28 PO; -MCTP EXT; -RISP-99 PO; -RISP0.5T9 PO; -VANC1CAP19 PO
[2017-08-07 09:46] VITALS: TEMP 36.8; Ht 167.6 cm; Wt 68.2 kg
--- NOTE | 2017-08-07 10:32 | DIAGNOSTIC IMAGING REPORT ---
CHEST ONE VIEW PORTABLE HISTORY: cough COMPARISON: None. FINDINGS: A few linear densities the left lung base suggesting scarring or atelectasis. Stable blunting of the left lateral costophrenic sulcus which may represent trace pleural fluid. This is not significantly change. No pneumothorax. The lungs are otherwise clear. The heart is mildly enlarged. This remains unchanged. IMPRESSION: No significant change compared to the prior study. Trace left pleural effusion and left basilar densities suggesting subsegmental atelectasis persist. Electronically signed by: Deepak Morales M.D. 08/07/2017 10:31 AM Dictated Date/Time: 08/07/2017 10:28 AM
[2017-08-07] MEDS ORDERED: CEPH500C PO (10:53)
--- NOTE | 2017-08-07 11:05 | EMERGENCY ROOM VISIT NOTE ---
History Report prepared by Genet: Danyell Christensen Under the Supervision of: Dr. Michael Miguel D.O. First contact with patient: 09:57 Chief Complaint: COUGH Stated Complaint: PERSISTAINT COUGH,CHOCKING,FAVORING RIGHT SIDE History of Present Illness The patient is a 82 year old female who presents to the Emergency Room with complaints of intermittent episodes of chocking beginning five days ago. The patient reports these episodes of chocking occur when she is eating solid foods. Per daughter, the patient has had to have the Heimlich maneuver two days ago because of her chocking. The patient had another episode of chocking last night. She has never had a swallow study done. The patient lives at [facility]. The patient follows up with a physical therapist and is starting to use a walker. The patient states she has stared to favor her right side when she walks. The patient has a history of falls. The patient had fall last Friday which she followed up for. The patient has a history of a chronic cough. Source of History: patient Onset: 5 days ago Position: other (generalized) Quality: other (chocking) Timing: intermittent Modifying Factors (Worsening): eating Associated Symptoms: + cough Review of Systems See HPI for pertinent positives & negatives. A total of 10 systems reviewed and were otherwise negative. 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 (3) Diverticulosis (4) Dyslipidemia (5) Fall (6) GERD (gastroesophageal reflux disease) (7) Hx of deep venous thrombosis (8) Hx pulmonary embolism (9) Hypertension (10) Hypothyroidism (11) Major depressive disorder with psychotic features (12) Mild cognitive impairment (13) Pulmonary embolism Surgical Problems: (1) Status post appendectomy (2) Status post coronary artery stent placement (3) Status post hysterectomy (4) Status post tonsillectomy Family History Coronary artery disease FATHER Dementia MOTHER Diabetes mellitus MOTHER Social History Smoking Status: Never Smoker Drug Use: none Marital Status: Housing Status: assisted living Occupation Status: retired Current/Historical Medications Scheduled Aspirin (Aspirin Ec), 325 MG PO DAILY Cephalexin Monohydrate (Keflex), 500 MG PO BID Escitalopram (Lexapro), 10 MG PO QAM Lisinopril (Lisinopril), 5 MG PO DAILY Lutein (Lutein), 12 MG PO DAILY Metoprolol Succinate (Toprol Xl), 12.5 MG PO DAILY Polyethylene Glycol-Propylene (Systane), 1 DROPS OPB BID Scheduled PRN Acetaminophen (Tylenol), 500 MG PO Q4 PRN for Pain or Fever Diphenhydramine Hcl (Banophen), 25 MG PO HS PRN for Itching Ketotifen Fumarate (Ophth) (Thera Tears Allergy Eye I), 2 DROPS OPB BID PRN for DRYNESS Nitroglycerin (Nitrostat), 0.4 MG UT UD PRN for Chest Pain Saline (Saline Mist), 2 SPRAYS KAEL HS PRN for DRYNESS Tramadol HCl (Tramadol HCl), 50 MG PO Q4H PRN for Pain Allergies Coded Allergies: Ciprofloxacin (Verified Allergy, Unknown, UNKNOWN, 08/07/17) Hydrocodone (Verified Allergy, Unknown, unknown, 08/07/17) Latex1 -Allergic Contact Dermititis (Verified Allergy, Unknown, unknown, ) Magnesium Salicylate (Verified Allergy, Unknown, UNKNOWN, 08/07/17) Sulfa Antibiotics (Verified Allergy, Unknown, UNKNOWN, 08/07/17) Sulfamethoxazole w/Trimethoprim (Verified Allergy, Unknown, UNKNOWN, ) Tetanus Toxoid (Verified Allergy, Unknown, unknown, 08/07/17) Physical Exam Vital Signs Date Time Temp Pulse Resp B/P (MAP) Pulse Ox O2 Delivery O2 Flow Rate FiO2 08/07/17 10:01 64 08/07/17 10:00 99 Room Air 08/07/17 09:46 36.8 66 16 112/71 99 Room Air Physical Exam CONSTITUTIONAL/VITAL SIGNS: Reviewed / noted above. GENERAL: Non-toxic in appearance. INTEGUMENTARY: Warm, dry, and Ragan. HEAD: Normocephalic. EYES: without scleral icterus or trauma. ENT/OROPHARYNX: clear and moist. LYMPHADENOPATHY/NECK: Is supple without lymphadenopathy or meningismus. RESPIRATORY: Lungs clear and equal. CARDIOVASCULAR: Regular rate and rhythm. GI/ABDOMEN: Soft and nontender. No organomegaly or pulsatile mass. No rebound or guarding. Normal bowel sounds. EXTREMITIES: Warm and well perfused. BACK: No CVA tenderness. NEUROLOGICAL: Intact without focal deficits. PSYCHIATRIC: normal affect. MUSCULOSKELETAL: Normally developed with good muscle tone. Medical Decision & Procedures ER Provider Diagnostic Interpretation: Radiology results as stated below per my review and radiologist interpretation: CHEST ONE VIEW PORTABLE FINDINGS: A few linear densities the left lung base suggesting scarring or atelectasis. Stable blunting of the left lateral costophrenic sulcus which may represent trace pleural fluid. This is not significantly change. No pneumothorax. The lungs are otherwise clear. The heart is mildly enlarged. This remains unchanged. IMPRESSION: No significant change compared to the prior study. Trace left pleural effusion and left basilar densities suggesting subsegmental atelectasis persist. Electronically signed by: Deepak Morales M.D. ECG Per My Interpretation Indication: weakness Rate (beats per minute): 62 Rhythm: normal sinus Findings: no ectopy, other (no ST elevation) ED Course 1002: Previous medical records were reviewed. The patient was evaluated in room A9. A complete history and physical examination was performed. 1017: Discussed the patient's case with Dr. Noguera. He will put the order in for an outpatient swallow study. 1108: On reevaluation, the patient is resting comfortably. I discussed the results and findings with the patient. She verbalized agreement of the treatment plan. The patient was discharged home. Medical Decision Differential diagnoses include: swallowing dysfunction, esophageal obstruction. This is an 82-year-old female who presents to the ED with a chief complaint of a cough. According to the daughter, the patient has had several choking episodes over the past couple of weeks. She has had a cough since February. The patient, according to the daughter required some abdominal thrust on Friday when she was choking and last night she was eating some cake and had a choking episode that did not require any intervention. The patient was recently admitted to the hospital at the end of last month. She does have frequent falls. The patient herself reports that she seems to choke more on dry crummy things. Her physical exam was unremarkable. Neurologic exam was unremarkable. Chest x-ray did not show acute process and a 12-lead EKG was showing a normal sinus rhythm. After evaluating the patient, I spoke with Dr. Pope. He is going to arrange for outpatient speech therapy evaluation and swallowing study. The patient is felt to be stable for discharge. The patient was advised to use boost or Ensure to supplement her diet and to avoid those things that cause difficulty in swallowing. Medication Reconcilliation Current Medication List: was personally reviewed by me Blood Pressure Screening Patient's blood pressure: Normal blood pressure Consults Time Called: 1015 Consulting Physician: Dr. Noguera Returned Call: 1017 Discussed the patient's case with Dr. Noguera. He will put the order in for an outpatient swallow study Impression Primary Impression: Dysphagia Scribe Attestation The scribe's documentation has been prepared under my direction and personally reviewed by me in its entirety. I confirm that the note above accurately reflects all work, treatment, procedures, and medical decision making performed by me. Departure Information Dispostion Home / Self-Care Referrals William Pope D.O. (PCP) Forms HOME CARE DOCUMENTATION FORM, IMPORTANT VISIT INFORMATION Patient Instructions Dysphagia Diet, Dysphagia Diet Advanced, My [facility] Additional Instructions Avoid those foods that increase your coughing or difficulty swallowing. Supplement diet with boost or Ensure. Dr. Pope will order a follow-up swallowing study for you for further evaluation of your swallowing function.
[2017-08-07 11:27] VITALS: BP 114/65; PULSE 68; O2SAT 98
== END 2017-08-07 11:28 | disposition home or self-care (01) ==
LOC: C.EDB 09:45 → C.EDA 11:28
DX: R13.10 Dysphagia, unspecified (principal); I25.10 Atherosclerotic heart disease of native coronary artery without angina pectoris; E78.5 Hyperlipidemia, unspecified; K21.9 Gastro-esophageal reflux disease without esophagitis; I10 Essential (primary) hypertension; E03.9 Hypothyroidism, unspecified; F32.9 Major depressive disorder, single episode, unspecified; Z86.711 Personal history of pulmonary embolism; Z86.718 Personal history of other venous thrombosis and embolism; Z95.5 Presence of coronary angioplasty implant and graft; Z79.82 Long term (current) use of aspirin; Z79.899 Other long term (current) drug therapy; Z88.1 Allergy status to other antibiotic agents; Z88.2 Allergy status to sulfonamides; Z88.5 Allergy status to narcotic agent; Z91.040 Latex allergy status; Z88.7 Allergy status to serum and vaccine; Z88.8 Allergy status to other drugs, medicaments and biological substances

== ENCOUNTER → 2017-08-18 | Outpatient (CLI) | payer OTHER ==
[~2017-08-18] MED LIST changes: +CEPH500C PO
--- NOTE | 2017-08-18 12:30 | DIAGNOSTIC IMAGING REPORT ---
VIDEO SWALLOW HISTORY: POSSIBLE ASPIRATION TECHNIQUE: Video fluoroscopic evaluation of swallowing was performed in the AP and lateral projections by the speech pathology staff. The patient is fed nectar-thick and thin liquid barium, a barium coated wafer, and barium pudding. FLUOROSCOPY TIME: 2 minutes. NUMBER OF FLUOROSCOPY IMAGES: 0 COMPARISON STUDY: None. FINDINGS: There is mild disordered esophageal motility. There was penetration when swallowing thin liquids, but no evidence of aspiration. There is no nodes of aspiration or penetration when swallowing nectar thick liquids, pudding, or cracker with paste. IMPRESSION: 1. No aspiration identified. 2. Please see the speech pathologist report for detailed findings and recommendations. Electronically signed by: Toni Tim M.D. 08/18/2017 12:28 PM Dictated Date/Time: 08/18/2017 12:25 PM
--- NOTE | 2017-08-19 14:32 | SWALLOWING EVALUATION ---
HISTORY: This 82 year old woman was referred for a video swallow study at [facility] in order to rule out aspiration and identify the safest consistencies for optimal oral intake. Patient is c/o a persistent cough when she is eating and has had several episodes of choking where family performed the Heimlich maneuver on her. Family (daughter) did confirm this and also was brought to the ED recently due to these episodes. PMH is significant for CAD, dementia with delirium, GERD, mild cognitive impairment, major depressive disorder with psychotic features, HTN, and hypothyroidism. Current diet is regular. PROCEDURE: The patient was seen in the Radiology Department of [facility] for the [facility]. Cursory examination of the oral cavity revealed the patient to have natural upper and lower dentition in fair condition. Movement of the articulators was wnl. The patient was seated upright in a wheelchair and was viewed in both the Anterior-Posterior (A-P) and Lateral planes. Volitional phonation exercises completed in the A-P plane revealed bilateral vocal fold movement. Vocal intensity was low. In the lateral plane, the patient was given the following boluses: 1 tsp. thin liquid barium x 2, single swallow thin liquid barium self-presented from a cup, sequential swallows of thin liquid barium self-presented from a straw, 1 tsp. nectar-thick liquid barium, single swallow nectar-thick liquid barium self-presented from a cup, 1 tsp. barium pudding, and 1 club cracker coated in barium pudding. The patient was then repositioned into the A-P plane and given the following boluses: 1 tsp. nectar thick barium and 1 tsp. barium pudding. RESULTS: Oral Stage: Lip closure was adequate. The patient was able to maintain a cohesive liquid bolus in the oral cavity during the liquid bolus hold task. Mastication was mildly slow. Lingual motion for bolus transport was also noted to be mildly slow. There was retention lining the tongue and palate after the initial swallow. The initiation of the pharyngeal swallow was delayed occurred when the bolus head reached the pyriforms. Pharyngeal Stage: Soft palate elevation was complete. Laryngeal elevation revealed partial superior movement of the thyroid cartilage and partial approximation of the arytenoids to the epiglottic base. Anterior hyoid excursion was complete. Epiglottic deflection was complete. Laryngeal vestibular closure was in-complete with a narrow column of contrast located in the vestibular at the height of the swallow. The pharyngeal stripping wave was present and complete. Pharyngeal contraction was complete. There was complete distention and duration of the opening to the pharyngoesophageal segment (PES). Tongue base retraction was partially reduced with a narrow column of contrast located between the tongue base and pharyngeal wall during the swallow. There was minimal retention located in the valleculae after the swallow. There was laryngeal penetration of thin liquids evidenced for this study. There was no evidence of aspiration. Mild retention cleared with a second swallow. Of note, the patient did have several episodes of dry coughing during the study; however this was NOT in response to aspiration. Esophageal stage: There was evidence of mid esophageal retention with retrograde flow below the PES. A liquid wash assisted to clear most of the retention but not fully. This is suggestive of esophageal dysmotility and reflux. SUMMARY/RECOMMENDATIONS: This patient presents with mild gordy-pharyngeal dysphagia. She also has evidence of esophageal dysfunction. The following is recommended: 1. Regular diet, slippery, and thin liquids. Avoid foods that are dry, thick, pasty, doughy. Add condiments to foods such as sauce or gravy to assist in keeping foods moist. 2. Aspiration and GERD precautions. Straws OK. Fully upright for meals and for 30 minutes after meals. Do not lay flat, elevate head of the bed to at least 30 degrees at all time, to include while sleeping. 3. Safe swallow strategies: Alternate solids and liquids. Small frequent meals. Rest breaks during meals. 4. Consider follow up with a GI specialist for further testing and management of esophageal dysfunction. A summary of the results and recommendations was discussed with the patient and her daughter (with permission) with verbal understanding. Both verbal and written education was provided with regard to a slippery diet with verbal understanding as well. Thank you for referral of this patient. Please contact me at if any additional information is needed.
--- NOTE | 2017-08-25 07:55 | CODING QUERY NO DIAGNOSIS ---
TREATMENT RENDERED WITHOUT A DIAGNOSIS To promote full compliance with coding requirements relating to patient care, physician participation is requested in all cases of hospital medical assistant uncertainty. Please assist us with providing a diagnosis/symptom for the test(s) below: A diagnosis/symptom was not documented on your Order. A valid diagnosis/symptom is required to bill all insurances. Please remember that we are unable to code a diagnosis of rule out, probable, possible, questionable, or suspected. Tests that require a diagnosis: DOS: 08/18/17 * VIDEO SWALLOW DIAGNOSIS: Provider Signature: Date: Thank you Adilene Prieto [employer] Once completed, please kindly fax back to [phone] For questions please call [phone]
== END | disposition home or self-care (01) ==
LOC: C.RAD 11:27
PROVIDERS: ATTEND Internal Medicine
DX: R13.10 Dysphagia, unspecified (principal)

== ENCOUNTER → 2017-11-04 | Outpatient (CLI) | payer OTHER ==
[~2017-11-04] MED LIST changes: +LISI-730 PO; -LSN5 PO
[2017-11-04 13:17] LABS: HEMATOCRIT 37.5 % (37-47); MEAN CELL VOLUME 91.9 fL (80-100); MEAN CORPUSCULAR HEMOGLOBIN 29.4 pg (25-34); PLATELET COUNT 279 K/uL (130-400); RED CELL DISTRIBUTION WIDTH CV 13.5 % (11.5-14.5); RED CELL DISTRIBUTION WIDTH SD 45.4 fL (36.4-46.3); WHITE BLOOD COUNT 4.99 K/uL (4.8-10.8)
[2017-11-04 14:11] LABS: BLOOD UREA NITROGEN 15 mg/dl (7-18); CALCIUM 9.2 mg/dl (8.5-10.1); CARBON DIOXIDE 28 mmol/L (21-32); CREATININE 0.84 mg/dl (0.60-1.20); GLUCOSE 72 mg/dl (70-99); POTASSIUM 4.3 mmol/L (3.5-5.1); SODIUM 141 mmol/L (136-145)
== END | disposition home or self-care (01) ==
LOC: C.LABWYN 15:29
PROVIDERS: ATTEND Internal Medicine
DX: R19.7 Diarrhea, unspecified (principal); I10 Essential (primary) hypertension; N39.0 Urinary tract infection, site not specified

== ENCOUNTER → 2017-11-05 | Outpatient (CLI) | payer OTHER | END | disposition home or self-care (01) | LOC: C.LABWYN 13:00 | PROVIDERS: ATTEND Internal Medicine | DX: N39.0 Urinary tract infection, site not specified (principal) ==